=== PATIENT | male | born 1960 | race Caucasian/White ===

== ENCOUNTER 2019-07-30 02:15 | Inpatient (IN) | payer MEDICARE, MEDICAID ==
--- NOTE | 2019-07-30 02:55 | ED ---
Psych HPI - General Chief Complaint: Psychiatric Symptoms Stated Complaint: mental health Time Seen by Provider: 07/30/19 02:55 Source: patient Mode of arrival: ambulatory - History of Present Illness Initial Comments: Dario is a 59 -year-old gentleman with unknown psychiatric history who is brought to the ED today by his family and is petitioned. Per family the patient has been talking to a stuffed monkey, patient has been very agitated and noncompliant with his psychiatric medications. When I attempted to obtain history from the patient he is very disorganized in his thinking. Patient talks about how his entire family hates him. He states that they don't let him drive. He states that he hasn't been taking his medications, patient states that his family assumed that he needed to be on medication for his whole life and he knows he doesn't. - Related Data Home Medications Medication Instructions Recorded Confirmed Aspirin EC [Ecotrin Low Dose] 81 mg PO DAILY 07/30/19 07/30/19 Atorvastatin [Lipitor] 40 mg PO HS 07/30/19 07/30/19 Levothyroxine Sodium [Synthroid] 75 mcg PO DAILY 07/30/19 07/30/19 metFORMIN HCL 1,000 mg PO BID 07/30/19 07/30/19 Allergies Allergy/AdvReac Type Severity Reaction Status Date / Time No Known Allergies Allergy Verified 07/30/19 02:40 Review of Systems ROS Statement: Those systems with pertinent positive or pertinent negative responses have been documented in the HPI. ROS Other: All systems not noted in ROS Statement are negative. Past Medical History Past Medical History: Diabetes Mellitus History of Any Multi-Drug Resistant Organisms: None Reported Past Surgical History: Orthopedic Surgery Past Psychological History: No Psychological Hx Reported Smoking Status: Current every day smoker Past Alcohol Use History: None Reported Past Drug Use History: None Reported General Exam - General Exam Comments Initial Comments: Physical Exam GENERAL: Patient is well-developed and well-nourished. Patient is nontoxic and well- hydrated and is in no distress. HENT: Normocephalic, Atraumatic. EYES: PERRL, EOMI PULMONARY: Unlabored respirations. No audible rales rhonchi or wheezing was noted. CARDIOVASCULAR: There is a regular rate and rhythm without any murmurs gallops or rubs. ABDOMEN: Soft and nontender with normal bowel sounds. SKIN: Skin is clear with no lesions or rashes and otherwise unremarkable. : Deferred NEUROLOGIC: Patient is alert and oriented x3. Moving all extremities spontaneously MUSCULOSKELETAL: Normal extremities with adequate strength and full range of motion. No lower extremity swelling or edema. No calf tenderness. PSYCHIATRIC: Odd behaviors, disorganized thinking Limitations: no limitations Course Vital Signs 07/30/19 07/30/19 07/30/19 02:33 08:50 13:22 Temperature 98.6 F 98.0 F 98.0 F Pulse Rate 100 91 82 Respiratory 20 15 16 Rate Blood Pressure 109/72 145/94 138/60 O2 Sat by Pulse 97 95 95 Oximetry Medical Decision Making - Medical Decision Making The patient was seen and evaluated history was obtained from family as well as patient assigned patient is sitting comfortably in the bed holding a stuffed monkey he also has a pile of what appears to be old male, a calendar which she has made multiple and some old birthday cards Patient medically cleared for evaluation by psych, upon EPS evaluation patient was sleeping, refused to talk stating that he needed to sleep. Patient will be re-assessed by EPS later I feel the patient warrants inpatient care, Cert completed Patient care signed out to Dr. Davis at shift change, awaiting placement by EPS - Lab Data Result diagrams: 07/30/19 03:20 07/30/19 03:20 Lab Results 07/30/19 07/30/19 07/30/19 Range/Units 03:20 03:20 04:31 WBC 7.1 (3.8-10.6) k/uL RBC 4.81 (4.30-5.90) m/uL Hgb 14.4 (13.0-17.5) gm/dL Hct 43.6 (39.0-53.0) % MCV 90.8 (80.0-100.0) fL MCH 29.9 (25.0-35.0) pg MCHC 32.9 (31.0-37.0) g/dL RDW 15.4 (11.5-15.5) % Plt Count 250 (150-450) k/uL Neutrophils % 63 % Lymphocytes % 23 % Monocytes % 7 % Eosinophils % 5 % Basophils % 1 % Neutrophils # 4.5 (1.3-7.7) k/uL Lymphocytes # 1.6 (1.0-4.8) k/uL Monocytes # 0.5 (0-1.0) k/uL Eosinophils # 0.4 (0-0.7) k/uL Basophils # 0.1 (0-0.2) k/uL Sodium 137 (137-145) mmol/L Potassium 4.2 (3.5-5.1) mmol/L Chloride 99 (98-107) mmol/L Carbon Dioxide 31 H (22-30) mmol/L Anion Gap 7 mmol/L BUN 20 (9-20) mg/dL Creatinine 1.04 (0.66-1.25) mg/dL Est GFR (CKD-EPI)AfAm 90 (>60 ml/min/1.73 sqM) Est GFR (CKD-EPI)NonAf 78 (>60 ml/min/1.73 sqM) Glucose 153 H (74-99) mg/dL Calcium 9.2 (8.4-10.2) mg/dL Total Bilirubin 0.5 (0.2-1.3) mg/dL AST 45 (17-59) U/L ALT 39 (21-72) U/L Alkaline Phosphatase 34 L (38-126) U/L Total Protein 6.7 (6.3-8.2) g/dL Albumin 4.2 (3.5-5.0) g/dL Urine Color Urine Appearance (Clear) Urine pH (5.0-8.0) Ur Specific [place] (1.001-1.035) Urine Protein (Negative) Urine Glucose (UA) (Negative) Urine Ketones (Negative) Urine Blood (Negative) Urine Nitrite (Negative) Urine Bilirubin (Negative) Urine Urobilinogen (<2.0) mg/dL Ur Leukocyte Esterase (Negative) Urine RBC (0-5) /hpf Urine WBC (0-5) /hpf Urine Mucus (None) /hpf Urine Opiates Screen Not Detected (NotDetected) Ur Oxycodone Screen Not Detected (NotDetected) Urine Methadone Screen Not Detected (NotDetected) Ur Propoxyphene Screen Not Detected (NotDetected) Ur Barbiturates Screen Not Detected (NotDetected) U Tricyclic Antidepress Not Detected (NotDetected) Ur Phencyclidine Scrn Not Detected (NotDetected) Ur Amphetamines Screen Not Detected (NotDetected) U Methamphetamines Scrn Not Detected (NotDetected) U Benzodiazepines Scrn Not Detected (NotDetected) Urine Cocaine Screen Not Detected (NotDetected) U Marijuana (THC) Screen Not Detected (NotDetected) 07/30/19 Range/Units 04:31 WBC (3.8-10.6) k/uL RBC (4.30-5.90) m/uL Hgb (13.0-17.5) gm/dL Hct (39.0-53.0) % MCV (80.0-100.0) fL MCH (25.0-35.0) pg MCHC (31.0-37.0) g/dL RDW (11.5-15.5) % Plt Count (150-450) k/uL Neutrophils % % Lymphocytes % % Monocytes % % Eosinophils % % Basophils % % Neutrophils # (1.3-7.7) k/uL Lymphocytes # (1.0-4.8) k/uL Monocytes # (0-1.0) k/uL Eosinophils # (0-0.7) k/uL Basophils # (0-0.2) k/uL Sodium (137-145) mmol/L Potassium (3.5-5.1) mmol/L Chloride (98-107) mmol/L Carbon Dioxide (22-30) mmol/L Anion Gap mmol/L BUN (9-20) mg/dL Creatinine (0.66-1.25) mg/dL Est GFR (CKD-EPI)AfAm (>60 ml/min/1.73 sqM) Est GFR (CKD-EPI)NonAf (>60 ml/min/1.73 sqM) Glucose (74-99) mg/dL Calcium (8.4-10.2) mg/dL Total Bilirubin (0.2-1.3) mg/dL AST (17-59) U/L ALT (21-72) U/L Alkaline Phosphatase (38-126) U/L Total Protein (6.3-8.2) g/dL Albumin (3.5-5.0) g/dL Urine Color Yellow Urine Appearance Clear (Clear) Urine pH 5.5 (5.0-8.0) Ur Specific [place] 1.026 (1.001-1.035) Urine Protein Trace H (Negative) Urine Glucose (UA) Negative (Negative) Urine Ketones Negative (Negative) Urine Blood Negative (Negative) Urine Nitrite Negative (Negative) Urine Bilirubin Negative (Negative) Urine Urobilinogen <2.0 (<2.0) mg/dL Ur Leukocyte Esterase Small H (Negative) Urine RBC 1 (0-5) /hpf Urine WBC 6 H (0-5) /hpf Urine Mucus Rare H (None) /hpf Urine Opiates Screen (NotDetected) Ur Oxycodone Screen (NotDetected) Urine Methadone Screen (NotDetected) Ur Propoxyphene Screen (NotDetected) Ur Barbiturates Screen (NotDetected) U Tricyclic Antidepress (NotDetected) Ur Phencyclidine Scrn (NotDetected) Ur Amphetamines Screen (NotDetected) U Methamphetamines Scrn (NotDetected) U Benzodiazepines Scrn (NotDetected) Urine Cocaine Screen (NotDetected) U Marijuana (THC) Screen (NotDetected) Disposition Clinical Impression: Psychosis Disposition: TRANSFER TO PSYCH HOSP/UNIT Condition: Stable Is patient prescribed a controlled substance at d/c from ED?: No
[2019-07-30 03:35] LABS: Basophils # (A) 0.1 k/uL (0-0.2); Basophils % (A) 1 %; Eosinophils # (A) 0.4 k/uL (0-0.7); Eosinophils % (A) 5 %; HCT 43.6 % (39.0-53.0); HGB 14.4 gm/dL (13.0-17.5); Lymphocytes # (A) 1.6 k/uL (1.0-4.8); Lymphocytes % (A) 23 %; MCH 29.9 pg (25.0-35.0); MCHC 32.9 g/dL (31.0-37.0); MCV 90.8 fL (80.0-100.0); Monocytes # (A) 0.5 k/uL (0-1.0); Monocytes % (A) 7 %; Neutrophils # (A) 4.5 k/uL (1.3-7.7); Neutrophils % (A) 63 %; Platelet Count 250 k/uL (150-450); RBC 4.81 m/uL (4.30-5.90); RDW 15.4 % (11.5-15.5); WBC 7.1 k/uL (3.8-10.6)
[2019-07-30 03:48] LABS: Albumin 4.2 g/dL (3.5-5.0); Calcium 9.2 mg/dL (8.4-10.2); Potassium 4.2 mmol/L (3.5-5.1); Total Bilirubin 0.5 mg/dL (0.2-1.3); Total Protein 6.7 g/dL (6.3-8.2)
[2019-07-30 05:48] LABS: Amphetamine Screen,Urine Not Detected (NotDetected); Barbiturate Screen,Urine Not Detected (NotDetected); Benzodiazepines Screen,Urine Not Detected (NotDetected); Cocaine Screen,Urine Not Detected (NotDetected); Methadone Screen, Urine Not Detected (NotDetected); Opiate Screen,Urine Not Detected (NotDetected); Oxycodone Screen, Urine Not Detected (NotDetected); Phencyclidine Screen,Urine Not Detected (NotDetected); Tricyclic Antidepressant,Urine Not Detected (NotDetected); Urn Cannabinoid Scrn Not Detected (NotDetected)
[2019-07-30] MEDS ORDERED: MAG HYDROX/AL HYDROX/SIMETH 30 ML CUP PO PRN (13:17)
[2019-07-30 13:53] LABS: Appearance,Urine Clear (Clear); Bilirubin,Urine Negative (Negative); Blood,Urine Negative (Negative); Color,Urine Yellow; Glucose,Urine (UA) Negative (Negative); Ketones,Urine Negative (Negative); Leukocyte Esterase,Urine Small (Negative); Mucus,Urine Rare /hpf; Nitrite,Urine Negative (Negative); PH, Urine 5.5 (5.0-8.0); Protein,Urine Trace (Negative); RBC,Urine 1 /hpf (0-5); Specific Gravity,Urine 1.026 (1.001-1.035); Urobilinogen,Urine <2.0 mg/dL (<2.0); WBC,Urine 6 /hpf (0-5)
--- NOTE | 2019-07-30 15:49 | P.MDCNMH ---
History of Present Illness H&P Date: 07/30/19 Chief Complaint: Medical management 59-year-old male with history of diabetes mellitus with unknown psychiatric history presents the ED by being brought in by family. Per family, patient has been talking to a stuffed monkey, acting very agitated and is noncompliant with his medication. [facility] has been consulted for medical management of this patient. During the encounter, patient had a very disorganized style of thinking. He was unable to answer many questions effectively. Patient complaining about his family. He states that there is no way he will go back home to his family. He denies any headache, nausea or vomiting, fever or chills, cough, chest pain, shortness of breath, palpitations, changes in urination or bowel habits. No changes in appetite or weight. Patient denies any dizziness, numbness/weakness/tingling of the extremities. Of note, patient reports smoking a pack of cigarettes daily and drinking alcohol socially. He does report a history of CAD with 70% blockage, underwent cardiac stenting. Vital signs were unremarkable. CBC was unremarkable. CMP showed bicarbonate of 31, glucose of 153. UA showed small leukocyte esterase. UDS was negative. Review of Systems Pertinent positives and negatives as discussed in HPI, a complete review of systems was performed and all other systems are negative. All systems: negative Past Medical History Past Medical History: Diabetes Mellitus History of Any Multi-Drug Resistant Organisms: None Reported Past Surgical History: Orthopedic Surgery Smoking Status: Current every day smoker Medications and Allergies Home Medications Medication Instructions Recorded Confirmed Type Aspirin EC [Ecotrin Low Dose] 81 mg PO DAILY 07/30/19 07/30/19 History Atorvastatin [Lipitor] 40 mg PO HS 07/30/19 07/30/19 History Levothyroxine Sodium [Synthroid] 75 mcg PO DAILY 07/30/19 07/30/19 History metFORMIN HCL 1,000 mg PO BID 07/30/19 07/30/19 History Allergies Allergy/AdvReac Type Severity Reaction Status Date / Time No Known Allergies Allergy Verified 07/30/19 02:40 Physical Exam Vitals: Vital Signs Temp Pulse Resp BP Pulse Ox 07/30/19 13:22 98.0 F 82 16 138/60 95 07/30/19 08:50 98.0 F 91 15 145/94 95 07/30/19 02:33 98.6 F 100 20 109/72 97 Intake and Output 07/30/19 07/30/19 07/30/19 06:59 14:59 22:59 Other: Weight 146.646 kg General: [non toxic], [no distress], [appears at stated age] Derm: [warm], [dry] Head: [atraumatic], [normocephalic], [symmetric] Eyes: [EOMI], [no lid lag], [anicteric sclera] Mouth: [no lip lesion], [mucus membranes moist] Cardiovascular: [S1S2 reg], [no murmur], [positive DP pulse bilateral] Lungs: [CTA bilateral], [no rhonchi, no rales] , [no accessory muscle use] Abdominal: [soft], [ nontender to palpation], [no guarding], [no appreciable organomegaly] Ext: [no gross muscle atrophy], [no edema], [no contractures] Neuro: [ CN II-XI grossly intact], [no focal neuro deficits] Psych: [Patient discussing irrelevant details, unable to determine] Cranial Nerve Examination - Cranial Nerves Cranial Nerve II- Optic: Intact Cranial Nerve III- Oculomotor: Intact Cranial Nerve IV- Trochlear: Intact Cranial Nerve V- Trigeminal: Intact Cranial Nerve - Abducens: Intact Cranial Nerve VII- Facial: Intact Cranial Nerve VIII- Auditory: Intact Cranial Nerve IX- Glossopharyngeal: Intact Cranial Nerve X- Vagus: Intact Cranial Nerve XI- Accessory: Intact Cranial Nerve XII- Hypoglossal: Intact Results CBC & Chem 7: 07/30/19 03:20 07/30/19 03:20 Labs: Abnormal Lab Results - Last 24 Hours (Table) 07/30/19 07/30/19 Range/Units 03:20 04:31 Carbon Dioxide 31 H (22-30) mmol/L Glucose 153 H (74-99) mg/dL Alkaline Phosphatase 34 L (38-126) U/L Urine Protein Trace H (Negative) Ur Leukocyte Esterase Small H (Negative) Urine WBC 6 H (0-5) /hpf Urine Mucus Rare H (None) /hpf Assessment and Plan Assessment: Assessment and Plan CAD Smoker Diabetes mellitus Hypothyroidism Report stenting with 70% occlusion. Plans: Continue aspirin and Lipitor. Should probably be on beta jm, will defer to PCP. Smokes one pack of cigarettes daily. Plans: Nicotine patch if patient requests. [id number] glucose 153. Plans: Continue metformin. Regular Accu-Cheks. Hypoglycemic precautions. Plans: Continue Synthroid. Check TSH tomorrow. Thank you for this consult. Please call with any additional questions or concerns.
[2019-07-30 17:39] LABS: Glucose,Whole Blood 142 mg/dL (75-99)
[2019-07-30 20:17] LABS: Glucose,Whole Blood 145 mg/dL (75-99)
[2019-07-30] MEDS: ATORVASTATIN 40 MG TAB PO SCH (21:05)
[2019-07-30] MEDS: metFORMIN 500 MG TAB PO SCH (21:05)
[2019-07-30] MEDS: ZIPRASIDONE 20 MG VIAL IM PRN (22:38)
[2019-07-30] MEDS: LORazepam 1 MG TAB PO PRN (22:38)
[2019-07-31] MEDS: LEVOTHYROXINE 75 MCG TAB PO SCH (06:21)
[2019-07-31 07:33] LABS: Glucose,Whole Blood 141 mg/dL (75-99)
[2019-07-31] MEDS: metFORMIN 500 MG TAB PO SCH ×2 (08:49→20:59)
[2019-07-31] MEDS: ASPIRIN 81 MG PO SCH (08:49)
[2019-07-31 12:40] LABS: Glucose,Whole Blood 119 mg/dL (75-99)
[2019-07-31] MEDS: risperiDONE ODT 1 MG TAB PO SCH ×2 (12:52→20:59)
--- NOTE | 2019-07-31 13:04 | P.HP ---
Psychiatric H&P - . H&P Date: 07/31/19 History & Physical: Allergies Allergy/AdvReac Type Severity Reaction Status Date / Time No Known Allergies Allergy Verified 07/30/19 02:40 Vital Signs Temp 97.3 F L 07/31/19 06:55 Pulse 93 07/31/19 06:55 Resp 20 07/31/19 06:55 BP 121/74 07/31/19 06:55 Pulse Ox 95 07/30/19 13:22 Laboratory Last Values WBC 7.1 k/uL (3.8-10.6) 07/30/19 03:20 RBC 4.81 m/uL (4.30-5.90) 07/30/19 03:20 Hgb 14.4 gm/dL (13.0-17.5) 07/30/19 03:20 Hct 43.6 % (39.0-53.0) 07/30/19 03:20 MCV 90.8 fL (80.0-100.0) 07/30/19 03:20 MCH 29.9 pg (25.0-35.0) 07/30/19 03:20 MCHC 32.9 g/dL (31.0-37.0) 07/30/19 03:20 RDW 15.4 % (11.5-15.5) 07/30/19 03:20 Plt Count 250 k/uL (150-450) 07/30/19 03:20 Neutrophils % 63 % 07/30/19 03:20 Lymphocytes % 23 % 07/30/19 03:20 Monocytes % 7 % 07/30/19 03:20 Eosinophils % 5 % 07/30/19 03:20 Basophils % 1 % 07/30/19 03:20 Neutrophils # 4.5 k/uL (1.3-7.7) 07/30/19 03:20 Lymphocytes # 1.6 k/uL (1.0-4.8) 07/30/19 03:20 Monocytes # 0.5 k/uL (0-1.0) 07/30/19 03:20 Eosinophils # 0.4 k/uL (0-0.7) 07/30/19 03:20 Basophils # 0.1 k/uL (0-0.2) 07/30/19 03:20 Sodium 137 mmol/L (137-145) 07/30/19 03:20 Potassium 4.2 mmol/L (3.5-5.1) 07/30/19 03:20 Chloride 99 mmol/L (98-107) 07/30/19 03:20 Carbon Dioxide 31 mmol/L (22-30) H 07/30/19 03:20 Anion Gap 7 mmol/L 07/30/19 03:20 BUN 20 mg/dL (9-20) 07/30/19 03:20 Creatinine 1.04 mg/dL (0.66-1.25) 07/30/19 03:20 Est GFR (CKD-EPI)AfAm 90 (>60 ml/min/1.73 sqM) 07/30/19 03:20 Est GFR (CKD-EPI)NonAf 78 (>60 ml/min/1.73 sqM) 07/30/19 03:20 Glucose 153 mg/dL (74-99) H 07/30/19 03:20 POC Glucose (mg/dL) 119 mg/dL (75-99) H 07/31/19 12:39 POC Glu Metal Pattern Maker Shital Bang 07/31/19 12:39 Calcium 9.2 mg/dL (8.4-10.2) 07/30/19 03:20 Total Bilirubin 0.5 mg/dL (0.2-1.3) 07/30/19 03:20 AST 45 U/L (17-59) 07/30/19 03:20 ALT 39 U/L (21-72) 07/30/19 03:20 Alkaline Phosphatase 34 U/L (38-126) L 07/30/19 03:20 Total Protein 6.7 g/dL (6.3-8.2) 07/30/19 03:20 Albumin 4.2 g/dL (3.5-5.0) 07/30/19 03:20 TSH 37.800 mIU/L (0.465-4.680) H 07/30/19 03:20 Urine Color Yellow 07/30/19 04:31 Urine Appearance Clear (Clear) 07/30/19 04:31 Urine pH 5.5 (5.0-8.0) 07/30/19 04:31 Ur Specific [place] 1.026 (1.001-1.035) 07/30/19 04:31 Urine Protein Trace (Negative) H 07/30/19 04:31 Urine Glucose (UA) Negative (Negative) 07/30/19 04:31 Urine Ketones Negative (Negative) 07/30/19 04:31 Urine Blood Negative (Negative) 07/30/19 04:31 Urine Nitrite Negative (Negative) 07/30/19 04:31 Urine Bilirubin Negative (Negative) 07/30/19 04:31 Urine Urobilinogen <2.0 mg/dL (<2.0) 07/30/19 04:31 Ur Leukocyte Esterase Small (Negative) H 07/30/19 04:31 Urine RBC 1 /hpf (0-5) 07/30/19 04:31 Urine WBC 6 /hpf (0-5) H 07/30/19 04:31 Urine Mucus Rare /hpf (None) H 07/30/19 04:31 Urine Opiates Screen Not Detected (NotDetected) 07/30/19 04:31 Ur Oxycodone Screen Not Detected (NotDetected) 07/30/19 04:31 Urine Methadone Screen Not Detected (NotDetected) 07/30/19 04:31 Ur Propoxyphene Screen Not Detected (NotDetected) 07/30/19 04:31 Ur Barbiturates Screen Not Detected (NotDetected) 07/30/19 04:31 U Tricyclic Antidepress Not Detected (NotDetected) 07/30/19 04:31 Ur Phencyclidine Scrn Not Detected (NotDetected) 07/30/19 04:31 Ur Amphetamines Screen Not Detected (NotDetected) 07/30/19 04:31 U Methamphetamines Scrn Not Detected (NotDetected) 07/30/19 04:31 U Benzodiazepines Scrn Not Detected (NotDetected) 07/30/19 04:31 Urine Cocaine Screen Not Detected (NotDetected) 07/30/19 04:31 U Marijuana (THC) Screen Not Detected (NotDetected) 07/30/19 04:31 07/31/19 12:51 IDENTIFYING DATA: Patient is a 59-year-old male who is , has 4 kids and is currently unemployed living with his brother. HPI: Patient presented to the hospital my concerns of his brother with patient's ongoing delusions and bizarre behavior/aggression. According to report from child protective services social worker who spoke with patient's brother, patient has been having multiple hospitalizations for bizarre behavior which has been occurring since the 80s. Most recently patient was in [place] living and was getting lost and needed to be tracked down by him who paid to have his brother moved up to [place] to be better looked after. As per report, brother states that patient has been religiously preoccupied, paranoid and rambles. Patient was admitted to the unit and was noted to be somewhat directable however was irritable and aggressive with staff and was acting bizarre. Patient was agreeable to be seen for interview in the office and brought with him papers and colorings from what he was doing in group. Patient appeared to have poor hygiene and poor grooming, appeared to be irritable and hostile, was demanding that continuity writer crab picker the phone and talk with his brother while he was in the room to explain to him that she should be left alone. Patient has poor insight into his condition and only spoke about how he is being mistreated by his brother and his siblings who were trying to take away his independence. Patient is tangential, illogical and loud and very demanding with continuity writer, swearing at times. He speaks about being controlled in his everyday life and states "I'm being attacked by other patien ts" when describing other people on the unit. When asked about his situation in [place] patient gives limited details and states that his sister was lying about him and lies about everything. Patient is oriented to person and place only and when asked certain questions about his thoughts about self-harm or harm to others and if he hears voices patient immediately gets agitated and states "I don't want to talk about that BS right now". Patient admits to smoking one pack a day of cigarettes denies alcohol use or marijuana use or any other substance use. PAST PSYCHIATRIC HISTORY: Patient is at multiple hospitalizations in the past however story is unclear. Patient has an unknown diagnosis at this time and patient denied any previous suicide attempts. When asked patient about his medication history, patient immediately got hostile and defensive and stated "I'm not talking about medications period". PMH: CAD, diabetes mellitus, thyroid disorder, hyperlipidemia ALLERGIES: [NKDA] CHEMICAL DEPENDENCY HISTORY:. HPI FAMILY PSYCHIATRIC/SUBSTANCE USE HISTORY: Denies SOCIAL HISTORY: Patient is currently living with his brother and was recently moved up to [place] from [place] for unclear reasons. Patient is currently unemployed and has 4 kids and is . MENTAL STATUS EXAM: General Appearance: Patient appears to be older than stated age, is obese alert however uncooperative and hostile. Behavior: Patient is seated in chair, easily agitated. Speech: Patient's speech is disorganized and nonpressured. Mood/Affect: Patient reports their mood is "not good", affect is congruent and constricted. Suicidality/Homicidality: Patient denies having any suicidal or homicidal ideation intent or plan. Perceptions: Patient denies any auditory or visual hallucinations. Though content/process: There is no evidence of any delusional thought content and thought process is linear and goal-directed. Memory and concentration: AOX2, to person and place only. Patient is unable to cooperate with cognitive exam Judgment and insight: Poor STRENGTHS/WEAKNESSES: Patient has good social support however patient has poor insight and poor coping skills. INTELLECT: Below average IMPRESSIONS: Psychosis unspecified Nicotine dependence PLAN: -Patient is admitted under [voluntary] status to [facility] for stabilization of psychiatric symptoms and safety. Patient signed adult voluntary form however refused to sign for medications. -Medications : Will start patient on risperidone 1 mg twice a day for psychosis/aggression. Patient will be offered this medication and if he refuses then we will petition for court. -Geodon and Ativan PRN for agitation/aggression -Patient was informed of the risks, benefits and side effects of the medication. -NRT -nicotine patch - on board for discharge planning. 07/31/19 13:00
[2019-07-31 17:44] LABS: Glucose,Whole Blood 100 mg/dL (75-99)
[2019-07-31 20:12] LABS: Glucose,Whole Blood 150 mg/dL (75-99)
[2019-07-31] MEDS: ATORVASTATIN 40 MG TAB PO SCH (21:00)
[2019-07-31] MEDS: LORazepam 1 MG TAB PO PRN (21:00)
[2019-07-31 21:45] LABS: Hemoglobin A1C 7.1 % (4.0-6.0)
[2019-08-01] MEDS: LEVOTHYROXINE 75 MCG TAB PO SCH (05:58)
[2019-08-01 07:39] LABS: Glucose,Whole Blood 140 mg/dL (75-99)
[2019-08-01] MEDS: metFORMIN 500 MG TAB PO SCH ×2 (08:29→20:51)
[2019-08-01] MEDS: ASPIRIN 81 MG PO SCH (08:29)
[2019-08-01] MEDS: risperiDONE ODT 1 MG TAB PO SCH ×2 (08:29→20:50)
--- NOTE | 2019-08-01 15:40 | P.PN ---
Progress Note - Text Progress Note Date: 08/01/19 IDENTIFICATION DATA: 59-year-old male admitted to [facility] due to worsening delusions and bizarre behavior/aggression. INTERVAL HISTORY: Patient was seen today. He reports feeling nervous around people who put him down, especially his family members. He denies feeling nervous in the hospital and states people in the hospital dont bother him much. He stated he likes going to his groups. He bragged about he is being mistreated by his family members and stated he does not want to go back to his brothers house if they continue to treat him bad. He staed he wants to have his own place. He reports his brother bossing over him. He says he gets social security disability but is concerned that he may not be able to get his own place due to his history of being a sexual offender. MENTAL STATUS EXAMINATION: 59 year old morbidly obese male in marginal grooming and hygiene. Maintains good eye contact. His speech and thought process are pressured, tangential. Mood is reported as ok and affect constricted. Denies current auditory or visual hallucinations and paranoid ideations. He is alert and oriented x 4. Jewel current suicidal or homicidal ideations. insight and judgment are limited. ASSESSMENT Psychosis unspecified PLAN: Continue current treatment.
[2019-08-01 20:09] LABS: Glucose,Whole Blood 126 mg/dL (75-99)
[2019-08-01] MEDS: ATORVASTATIN 40 MG TAB PO SCH (20:50)
[2019-08-01] MEDS: LORazepam 1 MG TAB PO PRN (22:21)
[2019-08-02] MEDS: LEVOTHYROXINE 75 MCG TAB PO SCH (06:09)
[2019-08-02 08:11] LABS: Glucose,Whole Blood 122 mg/dL (75-99)
[2019-08-02] MEDS: ASPIRIN 81 MG PO SCH (08:33)
[2019-08-02] MEDS: metFORMIN 500 MG TAB PO SCH ×2 (08:33→20:12)
[2019-08-02] MEDS: risperiDONE ODT 1 MG TAB PO SCH ×2 (08:33→20:12)
[2019-08-02] MEDS: ERYTHROMYCIN 5 MG/GM OPHTH OINT 3.5 GM TUBE LEFT EYE SCH ×3 (10:34→23:17)
--- NOTE | 2019-08-02 17:30 | P.PN ---
Progress Note - Text Progress Note Date: 08/02/19 IDENTIFICATION DATA: 59-year-old male admitted to [facility] unit due to worsening delusions and bizarre behavior/aggression. INTERVAL HISTORY: Patient was seen today. He says he wants his own place and wants to talk to socail worker about his placement options. He also reports feeling confused about his sexual orientation stating he doesnt know if he is born male or a female. He thinks he can find himself a and asked if thats going to raise any dander with his family members as he has to live under their roof. He was advised to have a family meeting arranged with his family memebrs to resolve their family conflicts. He reports good sleep and appetite. He says he is being kicked out of groups due falling asleep in groups. MENTAL STATUS EXAMINATION: 59 year old morbidly obese male in marginal grooming and hygiene. Maintains good eye contact. His speech and thought process are pressured, tangential. Mood is reported as better and affect constricted. Denies current auditory or visual hallucinations and paranoid ideations. He is alert and oriented x 4. Jewel current suicidal or homicidal ideations. insight and judgment are limited. ASSESSMENT Psychosis unspecified PLAN: Continue risperidone
[2019-08-02 20:08] LABS: Glucose,Whole Blood 149 mg/dL (75-99)
[2019-08-02] MEDS: ATORVASTATIN 40 MG TAB PO SCH (20:12)
[2019-08-03] MEDS: ERYTHROMYCIN 5 MG/GM OPHTH OINT 3.5 GM TUBE LEFT EYE SCH ×3 (00:17→21:17)
[2019-08-03] MEDS: MAGNESIUM HYDROXIDE 2,400 MG/10 ML CUP PO PRN (04:00)
[2019-08-03 07:47] LABS: Glucose,Whole Blood 128 mg/dL (75-99)
[2019-08-03] MEDS: metFORMIN 500 MG TAB PO SCH ×2 (09:16→21:17)
[2019-08-03] MEDS: ASPIRIN 81 MG PO SCH (09:16)
--- NOTE | 2019-08-03 09:16 | P.PN ---
Progress Note - Text Progress Note Date: 08/03/19 Interval History: Patient was seen wandering the hallways and was agreeable to speak to health underwriter t his morning in the office. Patient was less irritable today and less aggressive and was more directable. Patient has some improvement in his thought process however continues to be somewhat grandiose and spoke about starting multiple businesses and wanting to include his daughters however did not give any details. He states that he did not get along well with the previous doctor over the weekend and now states that "at least to listen to me". Patient seems to be somewhat tangential however is more cooperative. He states that his mood is good and denies any depressive symptoms. He states that he is sleeping poorly at night waking up when to 3 times a night. He states that he is going to some groups. At this time patient denies any suicidal or homical ideations, intent or plan. Patient denies any auditory, visual hallucinations. Patient denies any side effects from the medications and has been compliant with meds. Mental Status Exam: General Appearance: Patient appears to be older than stated age, is obese alert however somewhat cooperative Behavior: Patient is seated in chair, no agitation however continues to be bizarre. Speech: Patient's speech is disorganized and nonpressured. Mood/Affect: Patient reports their mood is "good", affect is congruent and constricted. Suicidality/Homicidality: Patient denies having any suicidal or homicidal ideation intent or plan. Perceptions: Patient denies any auditory or visual hallucinations. Though content/process: There is no evidence of any delusional thought content and thought process is tangential and illogical at times Memory and concentration: AOX2, to person and place only. Judgment and insight: Poor, improving mildly Assessment Psychosis unspecified Nicotine dependence Plan: -Patient continues to meet criteria for inpatient psychiatric admission for symptom stabilization and safety. Patient did sign the adult voluntary form however refused to sign for the medications. -Medications: We will increase risperidone to 1 mg every morning +2 mg daily at bedtime for psychosis. At this time patient is taking his medications. -Geodon and Ativan PRN for agitation/aggression -NRT -nicotine patch -SW on board for discharge planning.
[2019-08-03] MEDS: risperiDONE ODT 1 MG TAB PO SCH (09:20)
[2019-08-03] MEDS: LEVOTHYROXINE 75 MCG TAB PO SCH (09:42)
[2019-08-03 20:08] LABS: Glucose,Whole Blood 127 mg/dL (75-99)
[2019-08-03] MEDS: risperiDONE ODT 2 MG TAB PO SCH (21:17)
[2019-08-03] MEDS: ATORVASTATIN 40 MG TAB PO SCH (21:17)
[2019-08-04] MEDS ORDERED: ALBUTEROL INHALER 60 PUFF/8 GM INHALER INHALATION PRN (00:30)
[2019-08-04] MEDS: LEVOTHYROXINE 75 MCG TAB PO SCH (06:01)
[2019-08-04 08:00] LABS: Glucose,Whole Blood 122 mg/dL (75-99)
[2019-08-04] MEDS: risperiDONE ODT 1 MG TAB PO SCH (08:01)
[2019-08-04] MEDS: ERYTHROMYCIN 5 MG/GM OPHTH OINT 3.5 GM TUBE LEFT EYE SCH ×4 (08:01→23:48)
[2019-08-04] MEDS: metFORMIN 500 MG TAB PO SCH ×2 (08:01→21:30)
[2019-08-04] MEDS: ASPIRIN 81 MG PO SCH (08:01)
--- NOTE | 2019-08-04 12:03 | P.PN ---
Progress Note - Text Progress Note Date: 08/04/19 Interval History: Patient was seen attending activities group this morning and was agreeable to speak to screen writer in the office. Patient was appeared to be less irritable today and less aggressive and was more directable. Patient continues to speak about not trusting his brother and his sister and states that he is not ready to speak to them or have them visit the unit. Patient states that "it could have been under my terms" and hits his hands together. Patient continues to have limited insight however speaks about goal setting and steps to make it to where he is able to live on his own and own house. Patient seems to be somewhat less tangential however is more cooperative. He states that his mood is "better" and denies any depressive symptoms. He states that he slept much better last night, sleeping throughout the night. He states that he is going to some groups. At this time patient denies any suicidal or homical ideations, intent or plan. Patient denies any auditory, visual hallucinations. Patient denies any side effects from the medications and has been compliant with meds. Mental Status Exam: General Appearance: Patient appears to be older than stated age, is obese alert however somewhat cooperative Behavior: Patient is seated in chair, no agitation however continues to be bizarre. Speech: Patient's speech is disorganized and nonpressured. Mood/Affect: Patient reports their mood is "better", affect is congruent and constricted. Suicidality/Homicidality: Patient denies having any suicidal or homicidal ideation intent or plan. Perceptions: Patient denies any auditory or visual hallucinations. Though content/process: There is no evidence of any delusional thought content and thought process is tangential and illogical at times Memory and concentration: AOX2, to person and place only. Judgment and insight: Poor, improving mildly Assessment Psychosis unspecified Nicotine dependence Plan: -Patient continues to meet criteria for inpatient psychiatric admission for symptom stabilization and safety. Patient did sign the adult voluntary form however refused to sign for the medications. -Medications: We will continue with risperidone 1 mg every morning +2 mg daily at bedtime for psychosis. At this time patient is taking his medications. We'l l plan to increase as tolerated. -Geodon and Ativan PRN for agitation/aggression -NRT - nicotine patch -SW on board for discharge planning. We'll likely need brother or other family member to come in and see patient sometime this week.
[2019-08-04 20:08] LABS: Glucose,Whole Blood 136 mg/dL (75-99)
[2019-08-04] MEDS: risperiDONE ODT 2 MG TAB PO SCH (21:30)
[2019-08-04] MEDS: ATORVASTATIN 40 MG TAB PO SCH (21:30)
[2019-08-05] MEDS: MAGNESIUM HYDROXIDE 2,400 MG/10 ML CUP PO PRN (02:28)
[2019-08-05] MEDS: LEVOTHYROXINE 75 MCG TAB PO SCH (06:09)
[2019-08-05 07:39] LABS: Glucose,Whole Blood 114 mg/dL (75-99)
[2019-08-05] MEDS: ERYTHROMYCIN 5 MG/GM OPHTH OINT 3.5 GM TUBE LEFT EYE SCH ×2 (09:16→17:09)
[2019-08-05] MEDS: risperiDONE ODT 1 MG TAB PO SCH (09:18)
[2019-08-05] MEDS: metFORMIN 500 MG TAB PO SCH ×2 (09:18→21:20)
[2019-08-05] MEDS: ASPIRIN 81 MG PO SCH (09:18)
[2019-08-05] MEDS: TORSEMIDE 20 MG TAB PO SCH (09:19)
--- NOTE | 2019-08-05 11:41 | P.PN ---
Progress Note - Text Progress Note Date: 08/05/19 Interval History: Patient was seen after group had been completed and was agreeable to speak to policy writer typist in the common room. Patient continues to be somewhat irritable today and however was more directable. Patient continued to talk about his brother and sister not caring about him and not showing him love. He states that yesterday he attempted to call them on the phone twice and they did not apple picking supervisor. He claims "if they love me than the wall come to the store and talk with me here instead of trying to control me" as patient was tearful. Patient continues to be open to having a discussion with his family. Patient continues to have limited insight and judgment. Patient seems to be somewhat less tangential today. He states that his mood is "the same" and denies any depressive symptoms. He states that he slept much better last night, sleeping throughout the night. He states that he is going to some groups. At this time patient denies any suicidal or homical ideations, intent or plan. Patient denies any auditory, visual hallucinations. Patient denies any side effects from the medications and has been compliant with meds. Mental Status Exam: General Appearance: Patient appears to be older than stated age, is obese alert however somewhat cooperative Behavior: Patient is seated in chair, no agitation however continues to be bizarre. Speech: Patient's speech is disorganized and nonpressured. Mood/Affect: Patient reports their mood is "the same", affect is congruent and l abile Suicidality/Homicidality: Patient denies having any suicidal or homicidal ideation intent or plan. Perceptions: Patient denies any auditory or visual hallucinations. Though content/process: There is no evidence of any delusional thought content and thought process is tangential and illogical at times Memory and concentration: AOX2, to person and place only. Judgment and insight: Poor, improving mildly Assessment Psychosis unspecified Nicotine dependence Plan: -Patient continues to meet criteria for inpatient psychiatric admission for symptom stabilization and safety. Patient did sign the adult voluntary form however refused to sign for the medications. -Medications: We will continue increasing risperidone 1 mg every morning + 2.5 mg daily at bedtime for psychosis. At this time patient is taking his medications. We'll plan to increase as tolerated. -Geodon and Ativan PRN for agitation/aggression -NRT - nicotine patch -SW on board for discharge planning. We'll likely need brother or other family member to come in and see patient sometime this week.
[2019-08-05 20:06] LABS: Glucose,Whole Blood 152 mg/dL (75-99)
[2019-08-05] MEDS ORDERED: risperiDONE 1 MG TAB PO SCH (21:00)
[2019-08-05] MEDS: ATORVASTATIN 40 MG TAB PO SCH (21:20)
[2019-08-06] MEDS: LEVOTHYROXINE 75 MCG TAB PO SCH (06:06)
[2019-08-06 07:41] LABS: Glucose,Whole Blood 114 mg/dL (75-99)
[2019-08-06] MEDS: ASPIRIN 81 MG PO SCH (08:25)
[2019-08-06] MEDS: ERYTHROMYCIN 5 MG/GM OPHTH OINT 3.5 GM TUBE LEFT EYE SCH ×3 (08:25→16:09)
[2019-08-06] MEDS: TORSEMIDE 20 MG TAB PO SCH (08:26)
[2019-08-06] MEDS: risperiDONE ODT 1 MG TAB PO SCH (08:26)
[2019-08-06] MEDS: metFORMIN 500 MG TAB PO SCH ×2 (08:26→21:03)
--- NOTE | 2019-08-06 10:40 | P.PN ---
Progress Note - Text Progress Note Date: 08/06/19 Interval History: Patient was seen this morning wandering the hallways and was agreeable to speak to ad writer in the office. Patient continues to be somewhat irritable today and illogical often going on tangents and conversation. Patient continues to feel that his family is not helping him and that he wants to leave them and start his own life. He states that he has not tried to call him yesterday and states that "it's not my responsibility" and also that "they don't love me". Patient cont inues to be open to having a discussion with his family. Patient continues to have limited insight and judgment. He states that his mood is "good" and denies any depressive symptoms. He states that he slept much better last night, sleeping throughout the night. He states that he is going to some groups. At this time patient denies any suicidal or homical ideations, intent or plan. Patient denies any auditory, visual hallucinations. Patient denies any side effects from the medications and has been compliant with meds. Mental Status Exam: General Appearance: Patient appears to be older than stated age, is obese alert however somewhat cooperative Behavior: Patient is seated in chair, no agitation however continues to be bizarre. Speech: Patient's speech is disorganized and nonpressured. Often tangential and loud Mood/Affect: Patient reports their mood is "good", affect is congruent and labile Suicidality/Homicidality: Patient denies having any suicidal or homicidal ideation intent or plan. Perceptions: Patient denies any auditory or visual hallucinations. Though content/process: There is no evidence of any delusional thought content and thought process is tangential and illogical at times Memory and concentration: AOX2, to person and place only. Judgment and insight: Poor, improving mildly Assessment Psychosis unspecified Nicotine dependence Plan: -Patient continues to meet criteria for inpatient psychiatric admission for symptom stabilization and safety. Patient did sign the adult voluntary form however refused to sign for the medications. -Medications: We will continue increasing risperidone 1 mg every morning + 3 mg daily at bedtime for psychosis. At this time patient is taking his medications. We'll plan to increase as tolerated. Will consider adding Depakote for mood stabilization/lability. -Geodon and Ativan PRN for agitation/aggression -NRT - nicotine patch -SW on board for discharge planning. We'll likely need brother or other family member to visit patient.
[2019-08-06 19:39] LABS: Glucose,Whole Blood 129 mg/dL (75-99)
[2019-08-06] MEDS: MAGNESIUM HYDROXIDE 2,400 MG/10 ML CUP PO PRN (21:02)
[2019-08-06] MEDS: risperiDONE 1 MG TAB PO SCH (21:02)
[2019-08-06] MEDS: ATORVASTATIN 40 MG TAB PO SCH (21:03)
[2019-08-07] MEDS: ERYTHROMYCIN 5 MG/GM OPHTH OINT 3.5 GM TUBE LEFT EYE SCH ×4 (01:02→23:10)
[2019-08-07] MEDS: LEVOTHYROXINE 75 MCG TAB PO SCH (06:08)
[2019-08-07 07:44] LABS: Glucose,Whole Blood 125 mg/dL (75-99)
[2019-08-07] MEDS: metFORMIN 500 MG TAB PO SCH ×2 (08:11→20:53)
[2019-08-07] MEDS: TORSEMIDE 20 MG TAB PO SCH (08:11)
[2019-08-07] MEDS: ASPIRIN 81 MG PO SCH (08:11)
[2019-08-07] MEDS: risperiDONE ODT 1 MG TAB PO SCH (08:12)
[2019-08-07 12:31] LABS: Glucose,Whole Blood 94 mg/dL (75-99)
--- NOTE | 2019-08-07 12:52 | P.PN ---
Progress Note - Text Progress Note Date: 08/07/19 Interval History: Patient was seen this morning wandering the hallways and was agreeable to speak to commercial underwriter in the office. Patient is showing some signs of increase in his appropriateness and his last tangential but more directable during conversation. Patient is more appropriate as well and has a slightly brighter affect this morning. Patient has improved insight and is agreeable to treatment and commercial underwriter brought up the fact that patient may need an additional mood stabilizer and patient was agreeable to this stating that Depakote helps him feel "calmer". Patient continues to feel that his family is not helping him and that he wants to leave them and start his own life. He states that his mood is "good" and denies any depressive symptoms. He states that he slept much better last night, sleeping throughout the night. He states that he is going to some groups. At this time patient denies any suicidal or homical ideations, intent or plan. Patient denies any auditory, visual hallucinations. Patient denies any side effects from the medications and has been compliant with meds. Mental Status Exam: General Appearance: Patient appears to be older than stated age, is obese alert however somewhat cooperative Behavior: Patient is seated in chair, no agitation Speech: Patient's speech is more logical and nonpressured. Often tangential Mood/Affect: Patient reports their mood is "good", affect is congruent and labile at times. Suicidality/Homicidality: Patient denies having any suicidal or homicidal ideation intent or plan. Perceptions: Patient denies any auditory or visual hallucinations. Though content/process: There is no evidence of any delusional thought content and thought process is tangential and illogical at times however is improving. Memory and concentration: AOX2, to person and place only. Judgment and insight: Poor, improving mildly Assessment Psychosis unspecified Nicotine dependence Plan: -Patient continues to meet criteria for inpatient psychiatric admission for symptom stabilization and safety. Patient did sign the adult voluntary form how ever refused to sign for the medications. -Medications: We will continue with risperidone 1 mg every morning + 3 mg daily at bedtime for psychosis. We'll plan to increase as tolerated. Will add Depak ote 250 mg twice a day for mood stabilization/lability with plan to increase as tolerated. -Geodon and Ativan PRN for agitation/aggression -NRT - nicotine patch -SW on board for discharge planning. We'll likely need brother or other family member to visit patient.
[2019-08-07 20:10] LABS: Glucose,Whole Blood 148 mg/dL (75-99)
[2019-08-07] MEDS: DIVALPROEX ER 250 MG TAB.ER.24H PO SCH (20:52)
[2019-08-07] MEDS: ATORVASTATIN 40 MG TAB PO SCH (20:53)
[2019-08-07] MEDS: risperiDONE 1 MG TAB PO SCH (20:53)
[2019-08-07] MEDS: SENNOSIDES 8.6 MG TAB PO PRN (21:45)
[2019-08-08] MEDS: LEVOTHYROXINE 75 MCG TAB PO SCH (05:58)
[2019-08-08 07:41] LABS: Glucose,Whole Blood 127 mg/dL (75-99)
[2019-08-08] MEDS: DIVALPROEX ER 250 MG TAB.ER.24H PO SCH ×2 (09:01→20:39)
[2019-08-08] MEDS: ERYTHROMYCIN 5 MG/GM OPHTH OINT 3.5 GM TUBE LEFT EYE SCH ×2 (09:01→16:54)
[2019-08-08] MEDS: metFORMIN 500 MG TAB PO SCH ×2 (09:02→20:39)
[2019-08-08] MEDS: ASPIRIN 81 MG PO SCH (09:02)
[2019-08-08] MEDS: risperiDONE ODT 1 MG TAB PO SCH (09:02)
[2019-08-08] MEDS: TORSEMIDE 20 MG TAB PO SCH (09:41)
[2019-08-08] MEDS: ACETAMINOPHEN TAB 325 MG TAB PO PRN (09:42)
--- NOTE | 2019-08-08 15:46 | P.PN ---
Progress Note - Text Progress Note Date: 08/08/19 Interval history: Patient seen in cross coverage today. He makes reference to being homeless. He makes reference to his brother having threatened him, makes reference to it sounds like a peer on the unit here threatening him and makes reference to having some lack of supports. He makes of reference to in the new year looking at potentially moving to where he is just lost. Mental status exam: He is alert and cooperative with the interview. He does not show any significant agitation. His thought processes show some disorganization at times. His mood he described as up and down. He has not verbalize any thoughts of harm to self. When asked about thoughts of harm to others he report s that he threatened someone here. He then relays that he is not going to hurt himself or anyone else. At that the end of the session he makes a gesture with his hands like they are guns and when asked about this makes reference to it being a "Western." He makes reference to several TV shows. Plan: We'll maintain current psychotropic medication regimen. We'll continue to monitor his ongoing response to treatment monitor for any medication side effects.
[2019-08-08] MEDS: ATORVASTATIN 40 MG TAB PO SCH (20:39)
[2019-08-08] MEDS: risperiDONE 1 MG TAB PO SCH (20:39)
[2019-08-09] MEDS: LEVOTHYROXINE 75 MCG TAB PO SCH (06:40)
[2019-08-09 08:01] LABS: Glucose,Whole Blood 119 mg/dL (75-99)
[2019-08-09] MEDS: ERYTHROMYCIN 5 MG/GM OPHTH OINT 3.5 GM TUBE LEFT EYE SCH ×3 (09:10→16:09)
[2019-08-09] MEDS: risperiDONE ODT 1 MG TAB PO SCH (09:12)
[2019-08-09] MEDS: metFORMIN 500 MG TAB PO SCH ×2 (09:12→21:35)
[2019-08-09] MEDS: DIVALPROEX ER 250 MG TAB.ER.24H PO SCH ×2 (09:12→21:36)
[2019-08-09] MEDS: ASPIRIN 81 MG PO SCH (09:12)
[2019-08-09] MEDS: TORSEMIDE 20 MG TAB PO SCH (09:13)
--- NOTE | 2019-08-09 16:10 | P.PN ---
Progress Note - Text Progress Note Date: 08/09/19 Interval history: Patient is seen again in cross coverage today. He relates that he sleeping and eating well. He is attending groups. He does not verbalize any adverse psychotropic medication side effects. He talks about wanting to continue with treatment as an outpatient and wanting to do some job training. Mental status exam: He is alert and cooperative with the interview. His speech is fluent, not rapid or pressured. His mood he describes as some normal ups and downs. He describes feeling some upset because a peer keeps getting in his face. He denies any thoughts of harm to others. He does not verbalize any thoughts of harm to self we again discussed that he can go to staff if he needs to talk to somebody. Plan: Patient will be maintained on current psychotropic medication regimen. Continue to monitor for any medication side effects and monitor his ongoing response to treatment.
[2019-08-09 20:14] LABS: Glucose,Whole Blood 160 mg/dL (75-99)
[2019-08-09] MEDS: ATORVASTATIN 40 MG TAB PO SCH (21:35)
[2019-08-09] MEDS: risperiDONE 1 MG TAB PO SCH (21:36)
[2019-08-10] MEDS: LEVOTHYROXINE 75 MCG TAB PO SCH (05:39)
[2019-08-10 07:35] LABS: Glucose,Whole Blood 122 mg/dL (75-99)
[2019-08-10] MEDS: ERYTHROMYCIN 5 MG/GM OPHTH OINT 3.5 GM TUBE LEFT EYE SCH ×2 (08:38→16:33)
[2019-08-10] MEDS: risperiDONE ODT 1 MG TAB PO SCH (08:40)
[2019-08-10] MEDS: ASPIRIN 81 MG PO SCH (08:40)
[2019-08-10] MEDS: DIVALPROEX ER 250 MG TAB.ER.24H PO SCH (08:40)
[2019-08-10] MEDS: TORSEMIDE 20 MG TAB PO SCH (08:40)
[2019-08-10] MEDS: metFORMIN 500 MG TAB PO SCH ×2 (08:40→21:27)
--- NOTE | 2019-08-10 10:38 | P.PN ---
Progress Note - Text Progress Note Date: 08/10/19 Interval History: Patient was seen this morning speaking to other patients in the day room and was agreeable to speak to bid writer in the office. Patient is continuing to improve with regards to his appropriateness and is less tangential during conversation. Patient has a slightly improved affect and when asked how his weekend went he states that "the medications are helping me feel less paranoid and I can think straight" Patient has improved insight and is agreeable to treatment. Patient is less preoccupied with paranoia and problems with his siblings and appears to have demonstrate future orientation. He states that his mood is "fine" and denies any depressive symptoms. He states that he slept much better last night, sleeping throughout the night. He states that he is going to some groups. At this time patient denies any suicidal or homical ideations, intent or plan. Patient denies any auditory, visual hallucinations. Patient denies any side effects from the medications and has been compliant with meds. Patient today is complaining of increased swelling in his legs. Mental Status Exam: General Appearance: Patient appears to be older than stated age, is obese alert however somewhat cooperative Behavior: Patient is seated in chair, no agitation Speech: Patient's speech is more logical and nonpressured. Often tangential Mood/Affect: Patient reports their mood is "fine", affect is congruent and less labile. Suicidality/Homicidality: Patient denies having any suicidal or homicidal ideation intent or plan. Perceptions: Patient denies any auditory or visual hallucinations. Though content/process: There is no evidence of any delusional thought content and thought process is tangential and illogical at times however is improving. Memory and concentration: AOX2, to person and place only. Judgment and insight: Poor, improving mildly Assessment Psychosis unspecified Nicotine dependence Plan: -Patient continues to meet criteria for inpatient psychiatric admission for symptom stabilization and safety. Patient did sign the adult voluntary form however refused to sign for the medications. -Medications: We will continue with risperidone 1 mg every morning + 3 mg daily at bedtime for psychosis. We'll plan to increase as tolerated. Will increase Depakote to 250 mg + 500mg for mood stabilization/lability with plan to increase as tolerated. -Geodon and Ativan PRN for agitation/aggression -NRT - nicotine patch -SW on board for discharge planning. We'll likely need brother or other family member to visit patient to evaluate for baseline.
--- NOTE | 2019-08-10 15:55 | P.PN ---
Subjective Progress Note Date: 08/10/19 Principal diagnosis: Lower extremity edema Patient is a 59-year-old male past medical history of diabetes mellitus, tobacco abuse, and intermittent lower extremity swelling was admitted to the mental health unit secondary to psychosis. Called to reevaluate patient due to increasing lower extremity edema. Patient seen and examined. He reports that he has had intermittent lower extremity edema at home for the last several months. He states that he saw his family doctor and wanted x-rays but they did not want to proceed with x-rays. He is fixated on the fact that he needs new shoes as he was not allowed to have laces with his tennis shoes and is now wearing flip-flops. He then talks about how to obtain medical shoes ordered and needing to pick them up. Will use that to shoes will fix his lower extremity edema. We discussed that this could be coming from his hypothyroidism ordered due to heart issues. I have asked him to follow-up with his family doctor on discharge for an echocardiogram, he then starts talking about his prescription shoes again. He states that his edema got worse over the last 3-4 days. He typically takes help with that at home. He denies any sick shortness of breath, wheezing, coughing. Not having to use excess pillows at night to help with sleep. He states that typically his legs are better at night and worse during the day when he is up and walking. He denies any history of any heart problems. He states he recently moved here from [place]. He has no other complaints currently. Discussed with his psychiatrist he states he had significant increase in his lower extremity edema over the weekend. Reviewed his medications and he has not missed any doses of medications. Objective - Vital Signs Vital signs: Vital Signs Temp 97.4 F L 08/10/19 05:33 Pulse 108 H 08/10/19 05:33 Resp 20 08/10/19 05:33 BP 130/71 08/10/19 05:33 Pulse Ox 95 07/30/19 13:22 Intake & Output 08/09/19 08/10/19 08/10/19 18:59 06:59 18:59 Weight 147.4 kg - Exam General: non toxic, no distress, appears at stated age Derm: warm, dry Head: atraumatic, normocephalic, symmetric Eyes: EOMI, no lid lag, anicteric sclera Mouth: no lip lesion, mucus membranes moist Cardiovascular: S1S2 reg, no murmur, positive posterior tibial pulse bilateral, Lungs: CTA bilateral, no rhonchi, no rales , no accessory muscle use Ext: no gross muscle atrophy, 2+ nonpitting edema, no contractures Neuro: CN II-XI grossly intact, no focal neuro deficits Psych: Alert, oriented, anxious - Labs CBC & Chem 7: 07/30/19 03:20 07/30/19 03:20 Labs: Abnormal Lab Results - Last 24 Hours (Table) 08/09/19 08/10/19 Range/Units 20:13 07:32 POC Glucose (mg/dL) 160 H 122 H (75-99) mg/dL Assessment and Plan Assessment: Lower extremity edema -Torsemide 20 mg 1 now, then increase torsemide to 20 mg daily -Check basic metabolic profile and magnesium -Outpatient follow-up with PCP for echocardiogram -Check TSH as being be related to his significant hypothyroidism Hypothyroidism -TSH greater than 30 on admission -Has been on Synthroid -Recheck TSH -Elevate legs, compression stockings Diabetes mellitus type 2 -Follow blood sugars -Continue metformin -A1c 7.1 Morbid obesity -Structured outpatient weight loss Thank you for allowing us to participate in the care of this patient. We will follow peripherally. Do not hesitate to contact us with questions. Someone can be reached from the [facility] hospitalist group at all hours of the day at [phone].
[2019-08-10 20:30] LABS: Glucose,Whole Blood 156 mg/dL (75-99)
[2019-08-10] MEDS ORDERED: DIVALPROEX ER 250 MG TAB.ER.24H PO SCH (21:00)
[2019-08-10] MEDS: risperiDONE 1 MG TAB PO SCH (21:27)
[2019-08-10] MEDS: ATORVASTATIN 40 MG TAB PO SCH (21:27)
[2019-08-11] MEDS: LEVOTHYROXINE 75 MCG TAB PO SCH (05:49)
[2019-08-11 07:55] LABS: Glucose,Whole Blood 125 mg/dL (75-99)
[2019-08-11 08:23] LABS: Calcium 9.6 mg/dL (8.4-10.2); Magnesium 1.9 mg/dL (1.6-2.3); Potassium 4.5 mmol/L (3.5-5.1)
[2019-08-11] MEDS: metFORMIN 500 MG TAB PO SCH ×2 (09:03→20:00)
[2019-08-11] MEDS: ASPIRIN 81 MG PO SCH (09:03)
[2019-08-11] MEDS: DIVALPROEX ER 500 MG TAB.ER.24H PO SCH ×2 (09:03→20:00)
[2019-08-11] MEDS: risperiDONE ODT 1 MG TAB PO SCH (09:04)
[2019-08-11] MEDS: TORSEMIDE 20 MG TAB PO SCH (09:04)
--- NOTE | 2019-08-11 09:41 | P.PN ---
Progress Note - Text Progress Note Date: 08/11/19 Interval History: Patient was seen this morning sitting on a chair and was yelling at another pa tient who he claims was "in my face bothering me". Patient was directable and was agreeable to speak to public relations writer in the office. Patient appeared to be upset and angry and need to be directed back to his room so he could talk. Patient was preoccupied with the other patient and states that he has been annoyed by him since the patient arrived on the unit. Patient does state that he is doing better however and claims that his mood is "just fine" and denies any depressive symptoms. He states that he slept good last night, sleeping throughout the night. He states that he is going to some groups and is looking forward to going to the next 1 and requested for public relations writer to open the door so he can sit in the day room. At this time patient denies any suicidal or homical ideations, intent or plan. Patient denies any auditory, visual hallucinations. Patient denies any side effects from the medications and has been compliant with meds. Patient did state that his legs were feeling better since putting on the compression stockings and he is able to walk better on the unit. Mental Status Exam: General Appearance: Patient appears to be older than stated age, is obese alert however somewhat irritable this morning. Behavior: Patient is seated in chair, appears to be upset at another patient and angry. Speech: Patient's speech is more logical and nonpressured. Mood/Affect: Patient reports their mood is "just fine", affect is incongruent Suicidality/Homicidality: Patient denies having any suicidal or homicidal ideation intent or plan. Perceptions: Patient denies any auditory or visual hallucinations. Though content/process: There is no evidence of any delusional thought content and thought process is tangential and illogical at times however is improving. Memory and concentration: AOX2, to person and place only. Judgment and insight: Poor, improving mildly Assessment Psychosis unspecified Nicotine dependence Plan: -Patient continues to meet criteria for inpatient psychiatric admission for symptom stabilization and safety. Patient did sign the adult voluntary form however refused to sign for the medications. -Medications: We will continue with risperidone 1 mg every morning + 3 mg daily at bedtime for psychosis. We'll plan to increase as tolerated. Will increase Depakote to 500 mg + 500mg for mood stabilization/lability with plan to increase as tolerated. -Geodon and Ativan PRN for agitation/aggression -NRT - nicotine patch -SW on board for discharge planning. We'll likely need brother or other family member to visit patient to evaluate for baseline.
[2019-08-11 09:51] LABS: T4, Free (Free Thyroxine) 0.66 ng/dL (0.78-2.19)
[2019-08-11] MEDS ORDERED: TORSEMIDE 20 MG TAB PO ONE (13:30)
[2019-08-11] MEDS: ATORVASTATIN 40 MG TAB PO SCH (20:00)
[2019-08-11] MEDS: risperiDONE 1 MG TAB PO SCH (20:00)
[2019-08-11 20:13] LABS: Glucose,Whole Blood 147 mg/dL (75-99)
[2019-08-11] MEDS: MAGNESIUM HYDROXIDE 2,400 MG/10 ML CUP PO PRN (21:27)
[2019-08-12] MEDS: ZIPRASIDONE 20 MG VIAL IM PRN (03:04)
[2019-08-12] MEDS: LEVOTHYROXINE 125 MCG TAB PO SCH (06:07)
[2019-08-12 07:40] LABS: Glucose,Whole Blood 143 mg/dL (75-99)
[2019-08-12] MEDS: ASPIRIN 81 MG PO SCH (08:55)
[2019-08-12] MEDS: metFORMIN 500 MG TAB PO SCH ×2 (08:55→21:22)
[2019-08-12] MEDS: risperiDONE ODT 1 MG TAB PO SCH (08:55)
[2019-08-12] MEDS: TORSEMIDE 20 MG TAB PO SCH (08:55)
[2019-08-12] MEDS: DIVALPROEX ER 500 MG TAB.ER.24H PO SCH ×2 (08:55→21:22)
--- NOTE | 2019-08-12 10:41 | P.PN ---
Progress Note - Text Progress Note Date: 08/12/19 Interval History: Patient was seen this morning wandering the hallways and was agreeable to speak to com writer in the office. Patient was directable and appeared to be calmer this morning. Patient appeared to still be upset and angry at another patient on the unit and stated that he is trying to mind his own business however the other patient is "getting in my face and pointing fingers at me". Patient was preoccupied with the other patient and wanting to do better for himself thoughts like he is in treatment. Patient does state that he is doing better overall and is gradually improving with regards to his mood. He denies any depressive symptoms. He states that he slept poorly last night ideation as he was thinking about the other patient and could not sleep last night. 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 At this time patient denies any suicidal or homical ideations, intent or plan. Patient denies any auditory, visual hallucinations. Patient denies any side effects from the medications and has been compliant with meds. Patient did state that his legs were feeling better since putting on the compression stockings and he is able to walk better on the unit. Mental Status Exam: General Appearance: Patient appears to be older than stated age, is obese alert and directable. Behavior: Patient is seated in chair, appears to be upset at another patient and angry. Speech: Patient's speech is more logical and nonpressured. Tangential at times Mood/Affect: Patient reports their mood is "fine", affect is incongruent Suicidality/Homicidality: Patient denies having any suicidal or homicidal ideation intent or plan. Perceptions: Patient denies any auditory or visual hallucinations. Though content/process: There is no evidence of any delusional thought content and thought process is tangential at times however is improving. Memory and concentration: AOX2, to person and place only. Judgment and insight: Poor, improving mildly Assessment Psychosis unspecified Nicotine dependence Plan: -Patient continues to meet criteria for inpatient psychiatric admission for symptom stabilization and safety. Patient did sign the adult voluntary form however refused to sign for the medications. -Medications: We will continue increasing risperidone to 2 mg every morning + 3 mg daily at bedtime for psychosis. We'll plan to increase as tolerated. Will increase Depakote to 500 mg + 500mg for mood stabilization/lability with plan to increase as tolerated. -Geodon and Ativan PRN for agitation/aggression -NRT - nicotine patch -SW on board for discharge planning. Will continue attempting to reach out to patient's brother to visit patient and evaluate to compare to his baseline.
[2019-08-12 19:57] LABS: Glucose,Whole Blood 174 mg/dL (75-99)
[2019-08-12] MEDS: risperiDONE 1 MG TAB PO SCH (21:22)
[2019-08-12] MEDS: ATORVASTATIN 40 MG TAB PO SCH (21:22)
[2019-08-13] MEDS: LORazepam 1 MG TAB PO PRN (01:08)
[2019-08-13] MEDS: LEVOTHYROXINE 125 MCG TAB PO SCH (06:12)
[2019-08-13 07:58] LABS: Glucose,Whole Blood 134 mg/dL (75-99)
[2019-08-13] MEDS: metFORMIN 500 MG TAB PO SCH ×2 (09:48→21:14)
[2019-08-13] MEDS: risperiDONE 2 MG TAB PO SCH (09:48)
[2019-08-13] MEDS: ASPIRIN 81 MG PO SCH (09:48)
[2019-08-13] MEDS: DIVALPROEX ER 500 MG TAB.ER.24H PO SCH ×2 (09:49→21:15)
[2019-08-13] MEDS: TORSEMIDE 20 MG TAB PO SCH (09:49)
[2019-08-13 11:45] VITALS: BMI 50.8
--- NOTE | 2019-08-13 12:34 | P.PN ---
Progress Note - Text Progress Note Date: 08/13/19 Interval History: Patient was seen this morning wandering the hallways and was agreeable to speak to law writer in the office. Patient was directable and less intrusive this morning and appeared to be calmer. Patient remains tangential however is logical and has poor insight and judgment. Patient appeared to still be upset and angry at another patient on the unit and requested to the law writer several times that he speak to the other patient to have him stay away from him. Patient does state that he is doing better overall and is gradually improving with regards to his mood and his thoughts and claimed that he is remaining calm her. He denies any depressive symptoms. He states that he slept "like a baby" last night stating that he got good rest. He states that he is going to some groups which is helping him. At this time patient denies any suicidal or homical ideations, intent or plan. Patient denies any auditory, visual hallucinations. Patient denies any side effects from the medications and has been compliant with meds. Patient did state that his legs were feeling better since putting on the compression stockings. Mental Status Exam: General Appearance: Patient appears to be older than stated age, is obese alert and directable. Behavior: Patient is seated in chair and appears less angry today. Speech: Patient's speech is more logical and nonpressured. Tangential Mood/Affect: Patient reports their mood is "all right", affect is incongruent Suicidality/Homicidality: Patient denies having any suicidal or homicidal ideation intent or plan. Perceptions: Patient denies any auditory or visual hallucinations. Though content/process: There is no evidence of any delusional thought content and thought process is tangential at times however is improving. Memory and concentration: AOX2, to person and place only. Judgment and insight: Poor, improving mildly Assessment Psychosis unspecified Nicotine dependence Plan: -Patient continues to meet criteria for inpatient psychiatric admission for symptom stabilization and safety. Patient did sign the adult voluntary form however refused to sign for the medications. -Medications: We will continue risperidone to 2 mg every morning + 3 mg daily at bedtime for psychosis. We'll plan to increase as tolerated. Will continue with Depakote to 500 mg + 500mg for mood stabilization/lability with plan to increase as tolerated. -Geodon and Ativan PRN for agitation/aggression -NRT - nicotine patch -SW on board for discharge planning. Patient's brother will be coming in to visit patient over the weekend and will be able to plan for discharge next week likely.
[2019-08-13 20:10] LABS: Glucose,Whole Blood 148 mg/dL (75-99)
[2019-08-13] MEDS: risperiDONE 1 MG TAB PO SCH (21:15)
[2019-08-13] MEDS: ATORVASTATIN 40 MG TAB PO SCH (21:15)
[2019-08-14] MEDS: MAGNESIUM HYDROXIDE 2,400 MG/10 ML CUP PO PRN (01:52)
[2019-08-14] MEDS: LORazepam 1 MG TAB PO PRN (01:56)
[2019-08-14] MEDS: LEVOTHYROXINE 125 MCG TAB PO SCH (06:08)
[2019-08-14 07:39] LABS: Glucose,Whole Blood 236 mg/dL (75-99)
[2019-08-14] MEDS: ASPIRIN 81 MG PO SCH (08:33)
[2019-08-14] MEDS: risperiDONE 2 MG TAB PO SCH (08:34)
[2019-08-14] MEDS: DIVALPROEX ER 500 MG TAB.ER.24H PO SCH ×2 (08:34→21:19)
[2019-08-14] MEDS: TORSEMIDE 20 MG TAB PO SCH (08:34)
[2019-08-14] MEDS: metFORMIN 500 MG TAB PO SCH ×2 (08:34→21:19)
--- NOTE | 2019-08-14 13:28 | P.PN ---
Progress Note - Text Progress Note Date: 08/14/19 Interval History: Patient was seen this morning wandering the hallways and was agreeable to speak to teletypewriter installer in the office. Patient was directable and less intrusive this morning. Patient's tangentiality and conversation has mildly improved and patient is more logical in his answers however continues to have limited insight and judgment. He spoke about not wanting to get his brother involved in his life and how he wants a moon for his own apartment when he leaves the hospital and states that "I have all the time and the world". Patient appears to be less upset today and does not speak about the other patient on the unit which she is having conflicts with and states "I'm just ignoring him and doing my own thing". Patient does state that he is doing better overall and is mood and his thoughts have improved. He denies any depressive symptoms. He states that he slept "just fine" last night stating that he got good rest. At this time patient denies any suicidal or homical ideations, intent or plan. Patient denies any auditory, visual hallucinations. Patient denies any side effects from the medications and has been compliant with meds. Mental Status Exam: General Appearance: Patient appears to be older than stated age, is obese alert and directable. Behavior: Patient is seated in chair, no agitation. Speech: Patient's speech is more logical and nonpressured. Tangentiality is improving. Mood/Affect: Patient reports their mood is "just fine", affect is incongruent Suicidality/Homicidality: Patient denies having any suicidal or homicidal ideation intent or plan. Perceptions: Patient denies any auditory or visual hallucinations. Though content/process: There is no evidence of any delusional thought content and thought process is tangential at times however is improving. Memory and concentration: AOX2, to person and place only. Judgment and insight: Poor, improving mildly Assessment Psychosis unspecified Nicotine dependence Plan: -Patient continues to meet criteria for inpatient psychiatric admission for symptom stabilization and safety. Patient did sign the adult voluntary form however refused to sign for the medications. -Medications: We will continue risperidone to 2 mg every morning + 3 mg daily at bedtime for psychosis. We'll plan to increase as tolerated. Will continue with Depakote to 500 mg + 500mg for mood stabilization/lability. -Geodon and Ativan PRN for agitation/aggression -NRT - nicotine patch -SW on board for discharge planning. Patient's brother will be coming in to visit patient over the weekend and will be able to plan for discharge next week likely. Patient was requesting other option to possibly go to a jail.
[2019-08-14] MEDS ORDERED: PALIPERIDONE IM 234 MG/1.5 ML SYG IM STA (17:21)
[2019-08-14 20:22] LABS: Glucose,Whole Blood 154 mg/dL (75-99)
[2019-08-14] MEDS: ATORVASTATIN 40 MG TAB PO SCH (21:18)
[2019-08-14] MEDS: risperiDONE 1 MG TAB PO SCH (21:19)
[2019-08-15] MEDS: LEVOTHYROXINE 125 MCG TAB PO SCH (06:02)
[2019-08-15 07:48] LABS: Glucose,Whole Blood 125 mg/dL (75-99)
[2019-08-15] MEDS: risperiDONE 1 MG TAB PO SCH ×2 (08:08→21:38)
[2019-08-15] MEDS: metFORMIN 500 MG TAB PO SCH ×2 (08:08→21:38)
[2019-08-15] MEDS: ASPIRIN 81 MG PO SCH (08:09)
[2019-08-15] MEDS: TORSEMIDE 20 MG TAB PO SCH (08:09)
[2019-08-15] MEDS: DIVALPROEX ER 500 MG TAB.ER.24H PO SCH ×2 (08:09→21:38)
--- NOTE | 2019-08-15 11:41 | P.PN ---
Progress Note - Text Interval history: The patient's approaches my office to speak. He indicates that things have been getting better since he has been in the hospital. He feels that his thinking is clear. He is rather focused and frustrated with his brother. He indicates they had a phone conversation the did not go well. He feels he's belittled by his brother and he does not want to reside with him. He feels that there was going to be a support meeting scheduled for today but he expects his brother would not show up. We discussed some coping skills he could use to deal with these feelings of frustration but he is resistant to those suggestions. He has no questions or concerns regarding his medication he remains compliant with medication. Invega Sustenna was initiated. He reports that his sleep was restless. Appetite stable. Mental status exam: The patient is a morbidly obese male he is dressed in his own clothing is a disheveled appearance hygiene is fair. Eye contact is appropriate. Speech is fluent and spontaneous nonpressured. He is verbose but directable. He reports feelings of frustration toward his brother but reports no homicidal ideation intent or plan. He reports no suicidal ideation intent or plan. He is reporting no auditory or visual hallucinations or any specific delusions. Insight and judgment limited. He demonstrates no verbal or physical aggressiveness or any involuntary repetitive movements. Plan: The patient will be continued on his psychotropic medications as written. We will monitor him for safety. He is encouraged to control his reactions when dealing with his brother. Vital signs reviewed. He is encouraged to continue participating in groups.
[2019-08-15 20:34] LABS: Glucose,Whole Blood 142 mg/dL (75-99)
[2019-08-15] MEDS: ATORVASTATIN 40 MG TAB PO SCH (21:38)
[2019-08-16] MEDS: LEVOTHYROXINE 125 MCG TAB PO SCH (05:48)
[2019-08-16 07:54] LABS: Glucose,Whole Blood 124 mg/dL (75-99)
[2019-08-16] MEDS: DIVALPROEX ER 500 MG TAB.ER.24H PO SCH ×2 (08:48→20:45)
[2019-08-16] MEDS: metFORMIN 500 MG TAB PO SCH ×2 (08:48→20:45)
[2019-08-16] MEDS: ASPIRIN 81 MG PO SCH (08:48)
[2019-08-16] MEDS: risperiDONE 1 MG TAB PO SCH ×2 (08:48→20:46)
[2019-08-16] MEDS: TORSEMIDE 20 MG TAB PO SCH (08:52)
--- NOTE | 2019-08-16 10:54 | P.PN ---
Progress Note - Text Interval history: The patient is found in the hallway he follows me to an interview room. He states that he was the first one of this morning to take a shower and wash his clothes. He indicates appetite is stable he feels he is gaining weight. Staff reported he didn't sleep well last night he makes no comments on that. He has no questions or concerns regarding his medication. He spent several minutes stating he does not wish to reside with his brother and states he'll stay here as long as he needs to to find a different place. Mental status exam: The patient is a morbidly obese male he is dressed in his own clothing hygiene grooming adequate. Speech is fluent and spontaneous nonpressured he is verbose. He is focused on his brother and not returning to his brother's home. He reports no suicidal or homicidal ideation. He is endorsing no auditory or visual hallucinations. He may have residual delusional thinking but does not spontaneously describe it or acknowledge it when questioned. Insight and judgment limited. He demonstrates no verbal or physical aggressiveness or any involuntary repetitive movements. Plan: The patient's will continue on his current psychotropic medications we will monitor him for safety. He is encouraged to participate in group. Idle signs reviewed.
[2019-08-16 20:08] LABS: Glucose,Whole Blood 213 mg/dL (75-99)
[2019-08-16] MEDS: ATORVASTATIN 40 MG TAB PO SCH (20:46)
[2019-08-17] MEDS: LEVOTHYROXINE 125 MCG TAB PO SCH (06:02)
[2019-08-17 07:45] LABS: Glucose,Whole Blood 113 mg/dL (75-99)
[2019-08-17] MEDS: ASPIRIN 81 MG PO SCH (09:24)
[2019-08-17] MEDS: DIVALPROEX ER 500 MG TAB.ER.24H PO SCH ×2 (09:25→20:54)
[2019-08-17] MEDS: risperiDONE 1 MG TAB PO SCH ×2 (09:25→20:53)
[2019-08-17] MEDS: metFORMIN 500 MG TAB PO SCH ×2 (09:26→20:52)
[2019-08-17] MEDS: TORSEMIDE 20 MG TAB PO SCH (09:27)
--- NOTE | 2019-08-17 09:35 | PN ---
PROGRESS NOTE DATE OF SERVICE: 08/17/2019 CHIEF COMPLAINT: Patient was admitted for delusions, bizarre behavior and aggressive behavior. He had temple preoccupation, paranoia and disorganized thoughts and behavior. INTERVAL HISTORY: The patient has been doing fair. He had a quiet evening last night. He comes out in the day area. He will interact with others. He attended most groups yesterday. He tends to be quiet and somewhat withdrawn when he is in the group. He will initiate some interactions with others. He slept well last night. Today he has been up. He has been out on the unit. He initiated some interaction with me asking about when I would see him and what thoughts I had regarding his care. He otherwise had no complaints or concerns today. He feels that his mood is improving and his thoughts seem to be clear. He has been appropriate in his interaction with staff. He is cooperative with care. He tolerates his psychotropic medications. MENTAL STATUS: Patient gave fairly good eye contact. Psychomotor activity was slowed. Speech was monotone. He answered questions with brief responses. He did not say a lot. His affect was somewhat blunted. His mood was quiet though not clearly down or depressed. He did not appear to be significantly distressed. There was no indication of his responding to internal stimuli. Cognition was clear. He was oriented to his situation and surroundings. ASSESSMENT: I will continue the current diagnosis and treatment plan. I will continue psychotropic medications the same. Patient appears to be making progress. We will continue to focus on stabilization and discharge planning. JANES / CYNDIE: [id number] /
[2019-08-17] MEDS: ATORVASTATIN 40 MG TAB PO SCH ×2 (20:52→20:55)
[2019-08-18] MEDS: LEVOTHYROXINE 125 MCG TAB PO SCH (05:57)
[2019-08-18] MEDS: metFORMIN 500 MG TAB PO SCH ×2 (08:33→20:37)
[2019-08-18] MEDS: DIVALPROEX ER 500 MG TAB.ER.24H PO SCH ×2 (08:33→20:38)
[2019-08-18] MEDS: TORSEMIDE 20 MG TAB PO SCH (08:34)
[2019-08-18] MEDS: risperiDONE 1 MG TAB PO SCH (08:34)
[2019-08-18] MEDS: ASPIRIN 81 MG PO SCH (08:36)
--- NOTE | 2019-08-18 12:15 | P.PN ---
Progress Note - Text Progress Note Date: 08/18/19 Interval History: Patient was seen this morning wandering the hallways and was agreeable to speak to underwriter in the office. Patient was directable and cooperative this morning. Patient was less tangential today during conversation and appears to have an improved insight and judgment. He stated that he had a good weekend and feels better on his medications. He also states that he tolerated the Invega injection well on Saturday. He states that his brother came to visit him on Saturday and is agreeable to take him back after discharge which he is looking forward to. He spoke about continuing to have more independence when he leaves the hospital and eventually wanting to have his own place. Patient appears to be calmer and appropriate. He states that he was been going to groups and finding them beneficial. Patient does state that he is doing better overall and is mood and his thoughts have improved. He denies any depressive symptoms. He states that he slept "well" last night. At this time patient denies any suicidal or homical ideations, intent or plan. Patient denies any auditory, visual hallucinations. Patient denies any side effects from the medications and has been compliant with meds. Mental Status Exam: General Appearance: Patient appears to be older than stated age, is obese alert and directable. Behavior: Patient is seated in chair, no agitation. Speech: Patient's speech is logical and nonpressured. Mood/Affect: Patient reports their mood is "well", affect is congruent Suicidality/Homicidality: Patient denies having any suicidal or homicidal ideation intent or plan. Perceptions: Patient denies any auditory or visual hallucinations. Though content/process: There is no evidence of any delusional thought content and thought process is tangential at times however is improving. Memory and concentration: AOX2, to person and place only. Judgment and insight: Fair, improving mildly Assessment Psychosis unspecified Nicotine dependence Plan: -Patient continues to meet criteria for inpatient psychiatric admission for symptom stabilization and safety. Patient did sign the adult voluntary form however refused to sign for the medications. -Medications: We will continue decreasing by mouth Risperdal as it will be discontinued today.Will continue with Depakote to 500 mg + 500mg for mood stabilization/lability. -Patient received Invega sustenna 234 mg IM injection on 08/14/2019. Will be due for his 156 mg IM injection tomorrow prior to discharge. -Geodon and Ativan PRN for agitation/aggression -NRT - nicotine patch -SW on board for discharge planning. Patient's brother will be willing to have patient back after discharge. Likely discharge tomorrow.
[2019-08-18] MEDS: ACETAMINOPHEN TAB 325 MG TAB PO PRN ×2 (15:09→21:14)
[2019-08-18] MEDS: SENNOSIDES 8.6 MG TAB PO PRN (16:27)
--- NOTE | 2019-08-18 18:40 | XR ---
EXAMINATION TYPE: XR knee complete LT DATE OF EXAM: 08/18/2019 COMPARISON: NONE HISTORY: Fall. Knee pain TECHNIQUE: 3 views. There is moderate narrowing of the medial joint space. There is spurring of the femoral and tibial c ondyles. There is moderate spurring at the patellofemoral joint. I see no fracture. IMPRESSION: Moderately severe osteoarthritis that is more severe in the medial joint space. No fractu re seen.
--- NOTE | 2019-08-18 18:41 | XR ---
EXAMINATION TYPE: XR hand complete LT DATE OF EXAM: 08/18/2019 COMPARISON: NONE HISTORY: Pain and swelling TECHNIQUE: 3 views FINDINGS: There is spurring at the first carpometacarpal joint. I see no fracture nor dislocation. Me tacarpals appear intact. There are no erosions. There is soft tissue swelling of the hand. There is n arrowing of the IP joint spaces. IMPRESSION: Osteoarthritic changes. Soft tissue swelling. No sign of inflammatory arthritis.
--- NOTE | 2019-08-18 18:42 | XR ---
EXAMINATION TYPE: XR ankle complete LT DATE OF EXAM: 08/18/2019 COMPARISON: NONE HISTORY: Fall. Pain. TECHNIQUE: 3 views FINDINGS: There is some soft tissue mild swelling around the ankle joint. There are plantar and Achil les calcaneal spurs. Joint spaces are fairly normal. IMPRESSION: Calcaneal spurring. Soft tissue swelling. No fracture.
[2019-08-19] MEDS: ACETAMINOPHEN TAB 325 MG TAB PO PRN (01:30)
[2019-08-19] MEDS: LEVOTHYROXINE 125 MCG TAB PO SCH (05:58)
[2019-08-19 06:32] VITALS: BP 130/75; PULSE 97; RESP 18; TEMP 98.1
[2019-08-19] MEDS: TORSEMIDE 20 MG TAB PO SCH (08:38)
[2019-08-19] MEDS: ASPIRIN 81 MG PO SCH (08:38)
[2019-08-19] MEDS: metFORMIN 500 MG TAB PO SCH (08:39)
[2019-08-19] MEDS: DIVALPROEX ER 500 MG TAB.ER.24H PO SCH (08:39)
[2019-08-19] MEDS ORDERED: PALIPERIDONE IM 156 MG/ML SYG IM ONE (09:00)
--- NOTE | 2019-08-19 11:41 | P.DS ---
Providers Date of admission: 07/30/19 13:10 Expected date of discharge: 08/19/19 Attending physician: Korey Mo MD Consults: 07/30/19 13:17 Consult Physician Routine Consulting Provider: Flora Guerra Consult Reason/Comments: history and physical Do you want consulting provider notified?: Yes Primary care physician: Stated None - Discharge Diagnosis(es) (1) Schizoaffective disorder, bipolar type Current Visit: Yes Status: Acute Priority: High (2) Nicotine dependence Current Visit: Yes Status: Acute Priority: Low Hospital Course: Admission HPI: Patient is a 59-year-old male who is , has 4 kids and is currently unemployed living with his brother. Patient presented to the hospital my concerns of his brother with patient's ongoing delusions and bizarre behavior/aggression. According to report from clinical social worker who spoke with patient's brother, patient has been having multiple hospitalizations for bizarre behavior which has been occurring since the 80s. Most recently patient was in [place] living and was getting lost and needed to be tracked down by him who paid to have his brother moved up to [place] to be better looked after. As per report, brother states that patient has been religiously preoccupied, paranoid and rambles. Patient was admitted to the unit and was noted to be somewhat directable however was irritable and aggressive with staff and was acting bizarre. Patient was agreeable to be seen for interview in the office and brought with him papers and colorings from what he was doing in group. Patient appeared to have poor hygiene and poor grooming, appeared to be irritable and hostile, was demanding that information writer picker/puller the phone and talk with his brother while he was in the room to explain to him that she should be left alone. Patient has poor insight into his condition and only spoke about how he is being mistreated by his brother and his siblings who were trying to take away his independence. Patient is tangential, illogical and loud and very demanding with information writer, swearing at times. He speaks about being controlled in his everyday life and states "I'm being attacked by other patients" when describing other people on the unit. When asked about his situation in [place] patient gives limited details and states that his sister was lying about him and lies about everything. Patient is oriented to person and place only and when asked certain questions about his thoughts about self-harm or harm to others and if he hears voices patient immediately gets agitated and states "I don't want to talk about that BS right now". Patient admits to smoking one pack a day of cigarettes denies alcohol use or marijuana use or any other substance use. Hospital course: Upon admission to the unit patient was initially bizarre, aggressive irritable and tangential/illogical. Patient was however directable and agreeable to commence treatment. Patient got along well with most other patients on the unit and followed unit protocol. Patient was compliant with the medications and denied any side effects throughout hospital course. Patient was started on Depakote which was increased to 500 mg twice a day for mood stabilization. Patient was also started on Risperdal by mouth and was increased to 3 mg +2 mg daily for aggression/psychosis and patient was agreeable to be put on Invega Sustenna to insure compliance. Patient received the first dose of 234 mg IM the long-acting injection on 08/14/2019. Patient also received the second dose of 156 mg IM on 08/19/2019. Patient will be due for his next dose of 234 mg IM maintenance dose on 09/09/2019. Patient spoke of [his] stressors at home and in his life and engaged in therapy both group and individual. Patient was also seen by medical team for history and physical exam. Patient admitted to having an increase of swelling in his legs and his dose of torsemide was increased by the medical doctor. Patient also had an elevated TSH and his dose of levothyroxine was increased as well. This will need to be rechecked as an outpatient. Patient also sustained a fall one day prior to discharge and complained of pain in his left leg and hand and x-rays were performed which did not show any acute changes or fractures. Throughout the course of the hospitalization patient gradually improved with regards to mood, irritability/aggression, behavior, sleep and became future oriented with improved insight and judgment. On the day of discharge patient denied any suicidal or homicidal ideations intent or plan denied any auditory or visual chris llucinations. Patient endorsed wanting to live for his health and to find a new home for himself. The patient denied any access to guns or weapons. Patient denied any paranoia and did not endorse any delusions. Patient does not have a significant history of substance abuse however was counseled on abstaining from all substances including alcohol and marijuana. Patient was also counseled on the medications and need for regular compliance and was encouraged to follow-up with their outpatient appointment for mental health and also for primary care. Prior to discharge a family meeting will be arranged by clinical social worker to answer any questions and ensure safety upon discharge. Mental status exam: General Appearance: Patient appears to be older than stated age is alert, directable, and cooperative. Patient is in no acute distress and has fair hygiene and grooming Behavior: Patient is calmly seated without any agitated behavior. Speech: Patient's speech is fluent and nonpressured. Mood/Affect: Patient reports their mood is "better ", affect is congruent and euthymic. Suicidality/Homicidality: Patient denies having any suicidal or homicidal ideation intent or plan. Perceptions: Patient denies any auditory or visual hallucinations. Though content/process: There is no evidence of any delusional thought content and thought process is linear and goal-directed. Memory and concentration: AOX3, grossly intact for the purposes of this session. Can spell "WORLD" backwards correctly. Judgment and insight: fair, improved Impression: Schizoaffective disorder, bipolar type Nicotine dependence Plan: -Continue with discharge today as patient has improved and stabilized psychiatrically and is not currently an imminent threat to himself and/or others. -Continue medications: Patient will require the maintenance dose of 234 mg Invega Sustenna to be given on 09/09/2019 and will be given every monthly for psychosis/mood stabilization. Patient also to continue on Depakote 500 mg twice a day for mood stabilization. -Patient was counseled on the need for medication compliance and appropriate follow-up at mental health and also primary care for medical issues. Patient verbalized understanding and agreed. -Social work to arrange for and conduct family meeting to ensure safety upon discharge and answer any questions/concerns. Social work also to arrange for patients follow up appointments for outpatient psychiatric follow-up and primary care follow-up. -Patient counseled on abstaining from recreational drugs and marijuana and alcohol. Was informed/educated on the adverse effects on their physical and mental health. -Patient was instructed to return to the hospital or seek immediate medical care if their psychiatric or medical systems do worsen or reoccur. Allergies Allergy/AdvReac Type Severity Reaction Status Date / Time No Known Allergies Allergy Verified 07/30/19 02:40 Laboratory Results WBC 7.1 k/uL (3.8-10.6) 07/30/19 03:20 RBC 4.81 m/uL (4.30-5.90) 07/30/19 03:20 Hgb 14.4 gm/dL (13.0-17.5) 07/30/19 03:20 Hct 43.6 % (39.0-53.0) 07/30/19 03:20 MCV 90.8 fL (80.0-100.0) 07/30/19 03:20 MCH 29.9 pg (25.0-35.0) 07/30/19 03:20 MCHC 32.9 g/dL (31.0-37.0) 07/30/19 03:20 RDW 15.4 % (11.5-15.5) 07/30/19 03:20 Plt Count 250 k/uL (150-450) 07/30/19 03:20 Neutrophils % 63 % 07/30/19 03:20 Lymphocytes % 23 % 07/30/19 03:20 Monocytes % 7 % 07/30/19 03:20 Eosinophils % 5 % 07/30/19 03:20 Basophils % 1 % 07/30/19 03:20 Neutrophils # 4.5 k/uL (1.3-7.7) 07/30/19 03:20 Lymphocytes # 1.6 k/uL (1.0-4.8) 07/30/19 03:20 Monocytes # 0.5 k/uL (0-1.0) 07/30/19 03:20 Eosinophils # 0.4 k/uL (0-0.7) 07/30/19 03:20 Basophils # 0.1 k/uL (0-0.2) 07/30/19 03:20 Sodium 138 mmol/L (137-145) 08/11/19 07:12 Potassium 4.5 mmol/L (3.5-5.1) 08/11/19 07:12 Chloride 98 mmol/L (98-107) 08/11/19 07:12 Carbon Dioxide 30 mmol/L (22-30) 08/11/19 07:12 Anion Gap 10 mmol/L 08/11/19 07:12 BUN 19 mg/dL (9-20) 08/11/19 07:12 Creatinine 1.04 mg/dL (0.66-1.25) 08/11/19 07:12 Est GFR (CKD-EPI)AfAm 90 (>60 ml/min/1.73 sqM) 08/11/19 07:12 Est GFR (CKD-EPI)NonAf 78 (>60 ml/min/1.73 sqM) 08/11/19 07:12 Glucose 116 mg/dL (74-99) H 08/11/19 07:12 POC Glucose (mg/dL) 113 mg/dL (75-99) H 08/17/19 07:43 POC Glu Sap Bw Consultant ID Shu Holguin 08/17/19 07:[address] Glu mg/dL 157 07/30/19 03:20 Hemoglobin A1c 7.1 % (4.0-6.0) H 07/30/19 03:20 Calcium 9.6 mg/dL (8.4-10.2) 08/11/19 07:12 Magnesium 1.9 mg/dL (1.6-2.3) 08/11/19 07:12 Total Bilirubin 0.5 mg/dL (0.2-1.3) 07/30/19 03:20 AST 45 U/L (17-59) 07/30/19 03:20 ALT 39 U/L (21-72) 07/30/19 03:20 Alkaline Phosphatase 34 U/L (38-126) L 07/30/19 03:20 Total Protein 6.7 g/dL (6.3-8.2) 07/30/19 03:20 Albumin 4.2 g/dL (3.5-5.0) 07/30/19 03:20 TSH 47.000 mIU/L (0.465-4.680) H 08/11/19 07:12 Free T4 0.66 ng/dL (0.78-2.19) L 08/11/19 07:12 Urine Color Yellow 07/30/19 04:31 Urine Appearance Clear (Clear) 07/30/19 04:31 Urine pH 5.5 (5.0-8.0) 07/30/19 04:31 Ur Specific [place] 1.026 (1.001-1.035) 07/30/19 04:31 Urine Protein Trace (Negative) H 07/30/19 04:31 Urine Glucose (UA) Negative (Negative) 07/30/19 04:31 Urine Ketones Negative (Negative) 07/30/19 04:31 Urine Blood Negative (Negative) 07/30/19 04:31 Urine Nitrite Negative (Negative) 07/30/19 04:31 Urine Bilirubin Negative (Negative) 07/30/19 04:31 Urine Urobilinogen <2.0 mg/dL (<2.0) 07/30/19 04:31 Ur Leukocyte Esterase Small (Negative) H 07/30/19 04:31 Urine RBC 1 /hpf (0-5) 07/30/19 04:31 Urine WBC 6 /hpf (0-5) H 07/30/19 04:31 Urine Mucus Rare /hpf (None) H 07/30/19 04:31 Urine Opiates Screen Not Detected (NotDetected) 07/30/19 04:31 Ur Oxycodone Screen Not Detected (NotDetected) 07/30/19 04:31 Urine Methadone Screen Not Detected (NotDetected) 07/30/19 04:31 Ur Propoxyphene Screen Not Detected (NotDetected) 07/30/19 04:31 Ur Barbiturates Screen Not Detected (NotDetected) 07/30/19 04:31 U Tricyclic Antidepress Not Detected (NotDetected) 07/30/19 04:31 Ur Phencyclidine Scrn Not Detected (NotDetected) 07/30/19 04:31 Ur Amphetamines Screen Not Detected (NotDetected) 07/30/19 04:31 U Methamphetamines Scrn Not Detected (NotDetected) 07/30/19 04:31 U Benzodiazepines Scrn Not Detected (NotDetected) 07/30/19 04:31 Urine Cocaine Screen Not Detected (NotDetected) 07/30/19 04:31 U Marijuana (THC) Screen Not Detected (NotDetected) 07/30/19 04:31 Vital Signs Temp 98.1 F 08/19/19 05:55 Pulse 97 08/19/19 05:55 Resp 18 08/19/19 05:55 BP 130/75 08/19/19 05:55 Pulse Ox 95 07/30/19 13:22 Patient Condition at Discharge: Stable Plan - Discharge Summary New Discharge Prescriptions: New Torsemide [Demadex] 20 mg PO DAILY #14 tab Divalproex ER [Depakote ER] 500 mg PO BID #28 tab.er.24h Sennosides [Senokot] 8.6 mg PO BID PRN #28 tab PRN Reason: Constipation Levothyroxine Sodium [Synthroid] 150 mcg PO DAILY@0630 #28 tab Albuterol Inhaler [Ventolin Hfa Inhaler] 2 puff INHALATION RT-QID PRN #1 puff PRN Reason: Shortness Of Breath Or Wheezing Continue Atorvastatin [Lipitor] 40 mg PO HS Aspirin EC [Ecotrin Low Dose] 81 mg PO DAILY metFORMIN HCL 1,000 mg PO BID #28 tab Discontinued Levothyroxine Sodium [Synthroid] 75 mcg PO DAILY Discharge Medication List Aspirin EC [Ecotrin Low Dose] 81 mg PO DAILY 07/30/19 [History] Atorvastatin [Lipitor] 40 mg PO HS 07/30/19 [History] Albuterol Inhaler [Ventolin Hfa Inhaler] 2 puff INHALATION RT-QID PRN #1 puff 08/19/19 [Rx] Divalproex ER [Depakote ER] 500 mg PO BID #28 tab.er.24h 08/19/19 [Rx] Levothyroxine Sodium [Synthroid] 150 mcg PO DAILY@0630 #28 tab 08/19/19 [Rx] Sennosides [Senokot] 8.6 mg PO BID PRN #28 tab 08/19/19 [Rx] Torsemide [Demadex] 20 mg PO DAILY #14 tab 08/19/19 [Rx] metFORMIN HCL 1,000 mg PO BID #28 tab 08/19/19 [Rx] Follow up Appointment(s)/Referral(s): None,Stated [Primary Care Provider] - 1-[address] [facility] - 1-2 Days Activity/Diet/Wound Care/Special Instructions: Activity: [] Diet: [] Wound Care: [] Special Instructions: Please make appointment with PCP for Echocardiogram Repeat TSH in 4 weeks with PCP Plan for levothyrxine 150 mcg daily on discharge Discharge Disposition: HOME SELF-CARE
[2019-08-20] MEDS ORDERED: LEVOTHYROXINE 75 MCG TAB PO SCH (06:30)
== END 2019-08-19 15:05 | disposition home or self-care (01) | DRG 885 ==
LOC: EC 02:15 → 3MHU 13:10
PROVIDERS: ADMIT Psychiatry & Neurology Psychiatry; ATTEND Psychiatry & Neurology Psychiatry
DX: F25.0 Schizoaffective disorder, bipolar type (principal); Z68.43 Body mass index [BMI] 50.0-59.9, adult; E03.9 Hypothyroidism, unspecified; E11.9 Type 2 diabetes mellitus without complications; E66.01 Morbid (severe) obesity due to excess calories; E78.5 Hyperlipidemia, unspecified; F17.210 Nicotine dependence, cigarettes, uncomplicated; I25.10 Atherosclerotic heart disease of native coronary artery without angina pectoris; W19.XXXA Unspecified fall, initial encounter; M79.642 Pain in left hand; M79.605 Pain in left leg; Z59.0 Homelessness; Z63.9 Problem related to primary support group, unspecified; Z79.82 Long term (current) use of aspirin; Z79.890 Hormone replacement therapy; Z79.899 Other long term (current) drug therapy; Z91.14 Patient's other noncompliance with medication regimen; Z79.84 Long term (current) use of oral hypoglycemic drugs; Z95.5 Presence of coronary angioplasty implant and graft
CPT/HCPCS: 36415; 80048; 80053; 80306; 81001; 82075; 83036; 83735; 84439; 84443; 85025; 99285

== ENCOUNTER 2019-08-30 11:12 | Emergency (ER) | payer MEDICARE, OTHER ==
[2019-08-30] MEDS ORDERED: DIPH,PERTUS(ACELL)TETVAC-LF 0.5 ML VIAL IM ONE (11:26)
[2019-08-30 11:27] VITALS: TEMP 98.7
[2019-08-30] MEDS ORDERED: TOPICAL SKIN ADHESIVE 1 EACH AMP TOPICAL ONE (11:42)
--- NOTE | 2019-08-30 11:42 | ED ---
General Adult HPI - General Chief complaint: Fall Stated complaint: Mental Health Time Seen by Provider: 08/30/19 11:19 Source: patient, RN notes reviewed Mode of arrival: EMS Limitations: no limitations - History of Present Illness Initial comments: 59-year-old male with a past medical history of CAD, chest pain, diabetes myelitis, hypertension, bipolar disorder presents to the emergency department for a chief complain of fall. Patient states he was at [place] [employer] [place] to get some time away from his family when he tripped in his hotel room and fell and hit his head. No loss consciousness. Patient does not take any blood thinners. Patient has grandiose thinking and run-on sentences. Denies any thoughts of harming himself. Denies any suicidal thoughts. Patient has no other complaints at this time including shortness of breath, chest pain, abdominal pain, nausea or vomiting, headache, or visual changes. - Related Data Home Medications Medication Instructions Recorded Confirmed Aspirin EC [Ecotrin Low Dose] 81 mg PO DAILY 07/30/19 08/30/19 Atorvastatin [Lipitor] 40 mg PO HS 07/30/19 08/30/19 Previous Rx's Medication Instructions Recorded Albuterol Inhaler [Ventolin Hfa 2 puff INHALATION RT-QID PRN #1 08/19/19 Inhaler] puff Divalproex ER [Depakote ER] 500 mg PO BID #28 tab.er.24h 08/19/19 Levothyroxine Sodium [Synthroid] 150 mcg PO DAILY@0630 #28 tab 08/19/19 Sennosides [Senokot] 8.6 mg PO BID PRN #28 tab 08/19/19 Torsemide [Demadex] 20 mg PO DAILY #14 tab 08/19/19 metFORMIN HCL 1,000 mg PO BID #28 tab 08/19/19 Levofloxacin [Levaquin] 750 mg PO DAILY #5 tab 08/30/19 Allergies Allergy/AdvReac Type Severity Reaction Status Date / Time No Known Allergies Allergy Verified 08/30/19 11:37 Review of Systems ROS Statement: Those systems with pertinent positive or pertinent negative responses have been documented in the HPI. ROS Other: All systems not noted in ROS Statement are negative. Past Medical History Past Medical History: Coronary Artery Disease (CAD), Chest Pain / Angina, Diabe ivana Mellitus, Hypertension, Thyroid Disorder Additional Past Medical History / Comment(s): hernia bipolar History of Any Multi-Drug Resistant Organisms: None Reported Past Surgical History: Coronary Bypass/CABG, Orthopedic Surgery Past Psychological History: No Psychological Hx Reported Smoking Status: Current every day smoker Past Alcohol Use History: None Reported Past Drug Use History: None Reported General Exam Limitations: no limitations General appearance: alert, in no apparent distress Head exam: Present: atraumatic, normocephalic, normal inspection, other (superficial laceration to forehead) Eye exam: Present: normal appearance, PERRL, EOMI. Absent: scleral icterus, conjunctival injection, periorbital swelling ENT exam: Present: normal exam, mucous membranes moist Neck exam: Present: normal inspection, full ROM. Absent: tenderness, meni ngismus, lymphadenopathy Respiratory exam: Present: normal lung sounds bilaterally. Absent: respiratory distress, wheezes, rales, rhonchi, stridor Cardiovascular Exam: Present: regular rate, normal rhythm, normal heart sounds. Absent: systolic murmur, diastolic murmur, rubs, gallop, clicks Neurological exam: Present: alert Psychiatric exam: Present: normal affect, normal mood Course Vital Signs 08/30/19 08/30/19 11:18 14:46 Temperature 98.7 F Pulse Rate 96 62 Respiratory 20 22 Rate Blood Pressure 142/91 115/88 O2 Sat by Pulse 92 L 95 Oximetry Procedures - Laceration Laceration #1 Consent Obtained: verbal consent Indication: laceration Site: face Size (cm): 3 Description: linear (superficial) Type of Sutures: other (glue) Patient Tolerated Procedure: well, no complications Medical Decision Making - Medical Decision Making 59-year-old male with a past medical history of CAD, chest pain, diabetes mellitus, hypertension, bipolar disorder presents for chief complaint of fall. Patient was at the [facility] [place] at some time away from his family. States that he was in the hotel room and went to walk towards the microwave and "tripped over my own feet" falling and hitting his head. No loss of consciousness. No blood thinners on board. Fall was purely mechanical. No suicidal thoughts or thoughts of harming anyone else. He does have grandiose thinking and run-on sentences. On presentation vitals are stable. O2 satur ation documented at 92% however when I'm in the room it is always a 95%. CBC was obtained which was normal. No leukocytosis. CMP unremarkable. Anion gap is normal. Troponin is negative. CT cervical spine was obtained which showed no acute osseous lesion, degenerative changes with a small right-sided pleural effusion. CT cervical spine showed no acute intracranial abnormality. Patient was also complaining of leg swelling he states has been ongoing for a very long time. Patient takes a diuretic at home. X-ray was obtained which shows interstitial pattern with basilar consolidation and small right pleural effusion. Findings most typical of CHF however underlying pneumonia not exclude d. BNP was low at 115. Dr. Arce and I reviewed the film. At this time we believe it is more consistent with a pneumonia with his clinical history. He will be treated with Levaquin and was given dose here in the emergency department. Patient was also evaluated by EPS for this grandiose behavior and at this time will be discharged home. He is currently staying at his brother's house. He will return if he has any other worsening symptoms. - Lab Data Result diagrams: 08/30/19 12:08 08/30/19 12:08 Lab Results 08/30/19 08/30/19 08/30/19 Range/Units 12:08 12:08 12:08 WBC 9.5 (3.8-10.6) k/uL RBC 4.15 L (4.30-5.90) m/uL Hgb 12.8 L (13.0-17.5) gm/dL Hct 37.0 L (39.0-53.0) % MCV 89.0 (80.0-100.0) fL MCH 30.7 (25.0-35.0) pg MCHC 34.5 (31.0-37.0) g/dL RDW 13.9 (11.5-15.5) % Plt Count 264 (150-450) k/uL Neutrophils % 70 % Lymphocytes % 16 % Monocytes % 8 % Eosinophils % 4 % Basophils % 2 % Neutrophils # 6.7 (1.3-7.7) k/uL Lymphocytes # 1.5 (1.0-4.8) k/uL Monocytes # 0.7 (0-1.0) k/uL Eosinophils # 0.4 (0-0.7) k/uL Basophils # 0.2 (0-0.2) k/uL PT (9.0-12.0) sec INR (<1.2) APTT (22.0-30.0) sec Sodium 134 L (137-145) mmol/L Potassium 4.3 (3.5-5.1) mmol/L Chloride 94 L (98-107) mmol/L Carbon Dioxide 33 H (22-30) mmol/L Anion Gap 7 mmol/L BUN 17 (9-20) mg/dL Creatinine 0.82 (0.66-1.25) mg/dL Est GFR (CKD-EPI)AfAm >90 (>60 ml/min/1.73 sqM) Est GFR (CKD-EPI)NonAf >90 (>60 ml/min/1.73 sqM) Glucose 195 H (74-99) mg/dL Calcium 8.8 (8.4-10.2) mg/dL Total Bilirubin 0.2 (0.2-1.3) mg/dL AST 23 (17-59) U/L ALT 24 (21-72) U/L Alkaline Phosphatase 35 L (38-126) U/L Troponin I (0.000-0.034) ng/mL NT-Pro-B Natriuret Pep 115 pg/mL Total Protein 6.0 L (6.3-8.2) g/dL Albumin 3.5 (3.5-5.0) g/dL Urine Opiates Screen (NotDetected) Ur Oxycodone Screen (NotDetected) Urine Methadone Screen (NotDetected) Ur Propoxyphene Screen (NotDetected) Ur Barbiturates Screen (NotDetected) U Tricyclic Antidepress (NotDetected) Ur Phencyclidine Scrn (NotDetected) Ur Amphetamines Screen (NotDetected) U Methamphetamines Scrn (NotDetected) U Benzodiazepines Scrn (NotDetected) Urine Cocaine Screen (NotDetected) U Marijuana (THC) Screen (NotDetected) 08/30/19 08/30/19 08/30/19 Range/Units 12:08 12:08 15:30 WBC (3.8-10.6) k/uL RBC (4.30-5.90) m/uL Hgb (13.0-17.5) gm/dL Hct (39.0-53.0) % MCV (80.0-100.0) fL MCH (25.0-35.0) pg MCHC (31.0-37.0) g/dL RDW (11.5-15.5) % Plt Count (150-450) k/uL Neutrophils % % Lymphocytes % % Monocytes % % Eosinophils % % Basophils % % Neutrophils # (1.3-7.7) k/uL Lymphocytes # (1.0-4.8) k/uL Monocytes # (0-1.0) k/uL Eosinophils # (0-0.7) k/uL Basophils # (0-0.2) k/uL PT 9.9 (9.0-12.0) sec INR 0.9 (<1.2) APTT 24.2 (22.0-30.0) sec Sodium (137-145) mmol/L Potassium (3.5-5.1) mmol/L Chloride (98-107) mmol/L Carbon Dioxide (22-30) mmol/L Anion Gap mmol/L BUN (9-20) mg/dL Creatinine (0.66-1.25) mg/dL Est GFR (CKD-EPI)AfAm (>60 ml/min/1.73 sqM) Est GFR (CKD-EPI)NonAf (>60 ml/min/1.73 sqM) Glucose (74-99) mg/dL Calcium (8.4-10.2) mg/dL Total Bilirubin (0.2-1.3) mg/dL AST (17-59) U/L ALT (21-72) U/L Alkaline Phosphatase (38-126) U/L Troponin I <0.012 (0.000-0.034) ng/mL NT-Pro-B Natriuret Pep pg/mL Total Protein (6.3-8.2) g/dL Albumin (3.5-5.0) g/dL Urine Opiates Screen Not Detected (NotDetected) Ur Oxycodone Screen Not Detected (NotDetected) Urine Methadone Screen Not Detected (NotDetected) Ur Propoxyphene Screen Not Detected (NotDetected) Ur Barbiturates Screen Not Detected (NotDetected) U Tricyclic Antidepress Not Detected (NotDetected) Ur Phencyclidine Scrn Not Detected (NotDetected) Ur Amphetamines Screen Not Detected (NotDetected) U Methamphetamines Scrn Not Detected (NotDetected) U Benzodiazepines Scrn Not Detected (NotDetected) Urine Cocaine Screen Not Detected (NotDetected) U Marijuana (THC) Screen Not Detected (NotDetected) Disposition Clinical Impression: Pneumonia, Fall Disposition: HOME SELF-CARE Condition: Good Instructions (If sedation given, give patient instructions): Pneumonia (ED) Additional Instructions: Please take antibiotic as directed. Take this starting tomorrow. Follow-up with primary care in 1-2 days. Return to the emergency department if you have any worsening symptoms. Prescriptions: Levofloxacin [Levaquin] 750 mg PO DAILY #5 tab Is patient prescribed a controlled substance at d/c from ED?: No Referrals: Nia Anand MD [REFERRING] [facility] - 1-2 days Time of Disposition: 16:36
[2019-08-30 12:31] LABS: Basophils # (A) 0.2 k/uL (0-0.2); Basophils % (A) 2 %; Eosinophils # (A) 0.4 k/uL (0-0.7); Eosinophils % (A) 4 %; HGB 12.8 gm/dL (13.0-17.5); Lymphocytes # (A) 1.5 k/uL (1.0-4.8); Lymphocytes % (A) 16 %; MCH 30.7 pg (25.0-35.0); MCHC 34.5 g/dL (31.0-37.0); Mean Platelet Volume 6.3; Monocytes # (A) 0.7 k/uL (0-1.0); Monocytes % (A) 8 %; Neutrophils # (A) 6.7 k/uL (1.3-7.7); Neutrophils % (A) 70 %; Platelet Count 264 k/uL (150-450); RBC 4.15 m/uL (4.30-5.90); RDW 13.9 % (11.5-15.5); WBC 9.5 k/uL (3.8-10.6)
[2019-08-30 12:41] LABS: ALT 24 U/L (21-72); AST 23 U/L (17-59); African American GFR (CKD) >90 (>60 ml/min/1.73 sqM); Albumin 3.5 g/dL (3.5-5.0); Alkaline Phosphatase 35 U/L (38-126); Anion Gap 7 mmol/L; Blood Urea Nitrogen 17 mg/dL (9-20); Calcium 8.8 mg/dL (8.4-10.2); Carbon Dioxide 33 mmol/L (22-30); Chloride 94 mmol/L (98-107); Glucose 195 mg/dL (74-99); INR 0.9 (<1.2); Partial Thromboplastin Time 24.2 sec (22.0-30.0); Potassium 4.3 mmol/L (3.5-5.1); Prothrombin Time 9.9 sec (9.0-12.0); Sodium 134 mmol/L (137-145); Total Bilirubin 0.2 mg/dL (0.2-1.3)
--- NOTE | 2019-08-30 14:05 | CT ---
EXAMINATION TYPE: CT brain george sosa DATE OF EXAM: 08/30/2019 COMPARISON: NONE HISTORY: fall, head injury CT DLP: 2104.3 mGycm Automated exposure control for dose reduction was used. TECHNIQUE: CT scan of the head and cervical spine are performed without contrast. FINDINGS: BRAIN: There are mild, generalized changes of sulcal prominence and ventriculomegaly, compatible with atrophic change. There is diffuse periventricular white matter lucency, compatible with chronic whit e matter ischemic change. There is no mass effect, midline shift or intracranial blood. There is mild mucoperiosteal thickening involving the maxillary sinuses bilaterally. The remainder th e paranasal sinuses are clear. The mastoid air cells are clear. The bony calvarium is intact. IMPRESSION: 1. NO ACUTE INTRACRANIAL ABNORMALITY. 2. MILD ATROPHIC AND ISCHEMIC CHANGE. 3. MILD, CHRONIC BILATERAL MAXILLARY SINUS MUCOSAL DISEASE CERVICAL SPINE: There is a large degree of breathing artifact present on the study. There is a small right-sided effusion. Prevertebral soft tissues are normal. There is a mild reversal of the normal cervical lordosis. Vertebral body height and alignment are shea ntained. Atlantoaxial relationships are normal. There is mild disc space loss and hypertrophic spondy losis at C6-7 and C7-T1 but also present at C5-6. There is mild uncovertebral joint disease present a t C5-6. The facets are reasonably well-maintained. IMPRESSION: 1. NO ACUTE OSSEOUS LESION. 2. DEGENERATIVE CHANGE. 3. SMALL RIGHT-SIDED PLEURAL EFFUSION.
--- NOTE | 2019-08-30 14:32 | XR ---
EXAMINATION TYPE: XR chest 2V DATE OF EXAM: 08/30/2019 COMPARISON: NONE TECHNIQUE: PA and lateral views submitted. HISTORY: Shortness of breath FINDINGS: Diffuse interstitial pattern with basilar consolidation and small right pleural effusion. Hypertrophi c and degenerative change of the spine. IMPRESSION: 1. Findings are most typical of CHF. Underlying pneumonia not excluded.
[2019-08-30 14:47] VITALS: BP 115/88; PULSE 62; RESP 22
[2019-08-30] MEDS ORDERED: LEVOFLOXACIN 750MG-D5W PMX 750 MG in DEXTROSE/WATER 1 150ML.BAG IVPB STA (14:57)
[2019-08-30 16:09] LABS: Amphetamine Screen,Urine Not Detected (NotDetected); Barbiturate Screen,Urine Not Detected (NotDetected); Benzodiazepines Screen,Urine Not Detected (NotDetected); Cocaine Screen,Urine Not Detected (NotDetected); Methadone Screen, Urine Not Detected (NotDetected); Opiate Screen,Urine Not Detected (NotDetected); Oxycodone Screen, Urine Not Detected (NotDetected); Phencyclidine Screen,Urine Not Detected (NotDetected); Tricyclic Antidepressant,Urine Not Detected (NotDetected); Urn Cannabinoid Scrn Not Detected (NotDetected)
== END 2019-08-30 19:06 | disposition home or self-care (01) ==
LOC: EC 11:12
DX: J18.9 Pneumonia, unspecified organism (principal); S01.81XA Laceration without foreign body of other part of head, initial encounter; J90 Pleural effusion, not elsewhere classified; M79.89 Other specified soft tissue disorders; F31.9 Bipolar disorder, unspecified; E11.9 Type 2 diabetes mellitus without complications; I11.0 Hypertensive heart disease with heart failure; I50.9 Heart failure, unspecified; I25.10 Atherosclerotic heart disease of native coronary artery without angina pectoris; F17.200 Nicotine dependence, unspecified, uncomplicated; Z79.82 Long term (current) use of aspirin; Z79.899 Other long term (current) drug therapy; Z23 Encounter for immunization; Z95.1 Presence of aortocoronary bypass graft; W01.10XA Fall on same level from slipping, tripping and stumbling with subsequent striking against unspecified object, initial encounter; Y93.01 Activity, walking, marching and hiking; Y92.59 Other trade areas as the place of occurrence of the external cause
CPT/HCPCS: 99285; 96365; 90471; 12013; 82075; 36415; 83880; 80053; 84484; 85025; 85610; 85730; 87040; 80306; 71046; 72125; 70450; 90715; J1956

== ENCOUNTER 2019-10-02 09:40 | Emergency (ER) | payer MEDICARE, OTHER ==
[2019-10-02 09:54] VITALS: TEMP 98
--- NOTE | 2019-10-02 10:15 | ED ---
Lower Extremity Injury HPI - General Chief Complaint: Extremity Injury, Lower Stated Complaint: Fall Time Seen by Provider: 10/02/19 10:00 Source: patient Mode of arrival: wheelchair Limitations: no limitations - History of Present Illness Initial Comments: Patient is a 59-year-old male, past medical history of CAD, diabetes, hypertension, thyroid disorder, bipolar, presenting to emergency Department with complaints of left leg and knee pain after falling yesterday. Patient states he was in his flip flops on his deck last night and slipped from the rain and ended up falling onto his butt. Patient states his left knee twisted and he is having some pain in the back side of his left knee as well as into his lower leg. Patient states he is able to ambulate some. Patient has chronic lower leg edema. Patient has no other complaints of pain secondary to his fall. Patient denies fever, chills, hitting his head. Patient has no other complaints at this time. Upon arrival to the ER, vital signs are stable. - Related Data Home Medications Medication Instructions Recorded Confirmed Aspirin EC [Ecotrin Low Dose] 81 mg PO DAILY 07/30/19 08/30/19 Atorvastatin [Lipitor] 40 mg PO HS 07/30/19 08/30/19 Previous Rx's Medication Instructions Recorded Albuterol Inhaler [Ventolin Hfa 2 puff INHALATION RT-QID PRN #1 08/19/19 Inhaler] puff Divalproex ER [Depakote ER] 500 mg PO BID #28 tab.er.24h 08/19/19 Levothyroxine Sodium [Synthroid] 150 mcg PO DAILY@0630 #28 tab 08/19/19 Sennosides [Senokot] 8.6 mg PO BID PRN #28 tab 08/19/19 Torsemide [Demadex] 20 mg PO DAILY #14 tab 08/19/19 metFORMIN HCL 1,000 mg PO BID #28 tab 08/19/19 Levofloxacin [Levaquin] 750 mg PO DAILY #5 tab 08/30/19 Allergies Allergy/AdvReac Type Severity Reaction Status Date / Time No Known Allergies Allergy Verified 10/02/19 09:50 Review of Systems ROS Statement: Those systems with pertinent positive or pertinent negative responses have been documented in the HPI. ROS Other: All systems not noted in ROS Statement are negative. Past Medical History Past Medical History: Coronary Artery Disease (CAD), Chest Pain / Angina, Diabetes Mellitus, Hypertension, Thyroid Disorder Additional Past Medical History / Comment(s): hernia bipolar History of Any Multi-Drug Resistant Organisms: None Reported Past Surgical History: Coronary Bypass/CABG, Orthopedic Surgery Past Psychological History: No Psychological Hx Reported Smoking Status: Current every day smoker Past Alcohol Use History: None Reported Past Drug Use History: None Reported General Exam - General Exam Comments Initial Comments: GENERAL: Disheveled appearance, obese, in no acute distress. HEAD: Atraumatic, normocephalic. EYES: Pupils equal round and reactive to light, extraocular movements intact, sclera anicteric, conjunctiva are normal. ENT: Nares patent, oropharynx clear without exudates. Moist mucous membranes. NECK: Normal range of motion, supple without lymphadenopathy or JVD. LUNGS: Breath sounds clear to auscultation bilaterally and equal. No wheezes rales or rhonchi. HEART: Regular rate and rhythm without murmurs, rubs or gallops. ABDOMEN: Soft, nontender, normoactive bowel sounds. EXTREMITIES: Pain with palpation of the anterior and posterior aspect of the left knee as well as proximal portion of lower leg. Patient has decreased flexion of the left knee. Patient has chronic lower leg edema. Neurovascular intact. PSYCH: Normal mood, normal affect. SKIN: Warm, Dry, normal turgor. Limitations: no limitations Course Vital Signs 10/02/19 09:50 Temperature 98 F Pulse Rate 92 Respiratory 18 Rate Blood Pressure 115/78 O2 Sat by Pulse 95 Oximetry Medical Decision Making - Medical Decision Making Patient is a 59-year-old male presenting with left knee and left lower leg pain after slipping in the rain yesterday. Patient denies any other injuries from the fall. X-ray reveals no acute fracture. Severe arthroplasty. There is fluid in the suprapatellar bursa. Patient is stable for discharge at this time. Patient will follow up with orthopedics within a week if symptoms persist. Patient will use ice, compression, elevation for symptomatic relief. Patient is in agreement with this plan of care. Return parameters were discussed with the patient and he verbalized understanding. Case discussed with Dr. Arce. Disposition Clinical Impression: Left knee pain, Fall Disposition: HOME SELF-CARE Condition: Stable Instructions (If sedation given, give patient instructions): Knee Pain (ED) Additional Instructions: Please return to the Emergency Department if symptoms worsen or any other concerns. Follow up with orthopedics if symptoms persist after one week. Use ice, elevation, compression on the knee. Is patient prescribed a controlled substance at d/c from ED?: No Referrals: Eriberto Rubio MD [Primary Care Provider] - 1-2 days Fatou Shelton DO [Doctor of Osteopathic Medicine] - 1-2 days
--- NOTE | 2019-10-02 10:43 | XR ---
EXAMINATION TYPE: XR knee complete LT DATE OF EXAM: 10/02/2019 COMPARISON: NONE HISTORY: Pain TECHNIQUE: Three views are submitted. FINDINGS: Severe narrowing the medial compartment knee joint with hypertrophic spurring. Diffuse osteopenia. Ma rked narrowing the patellofemoral joint with hypertrophic changes. Soft tissue ossifications patellar bursa. Small amount of fluids patellar bursa. Vascular calcification noted. IMPRESSION: 1. No acute fracture. 2. Severe arthropathy. 3. There is fluid in soft tissue ossification suprapatellar bursa. If there is concern for internal d erangement of knee correlate with MRI.
--- NOTE | 2019-10-02 10:44 | XR ---
EXAMINATION TYPE: XR tibia fibula LT DATE OF EXAM: 10/02/2019 COMPARISON: NONE HISTORY: Pain TECHNIQUE: Two views are submitted. FINDINGS: The osseous structures are intact. Arthropathy of the knee joint. Soft tissue edema noted. Calcaneal spurs noted. Vascular calcifications noted. Fluid in the suprapatellar bursa. Soft tissue Well-cortic ated ossification Noted in the region of the suprapatellar bursa. IMPRESSION: 1. No acute osseous abnormality. 2. Severe arthropathy of the knee joint.
[2019-10-02 11:20] VITALS: BP 132/79; PULSE 78; RESP 20
== END 2019-10-02 11:20 | disposition home or self-care (01) ==
LOC: EC 09:40
DX: M25.562 Pain in left knee (principal); R60.0 Localized edema; I25.119 Atherosclerotic heart disease of native coronary artery with unspecified angina pectoris; I10 Essential (primary) hypertension; E11.9 Type 2 diabetes mellitus without complications; F17.200 Nicotine dependence, unspecified, uncomplicated; Z79.82 Long term (current) use of aspirin; Z79.899 Other long term (current) drug therapy; Z95.1 Presence of aortocoronary bypass graft; W01.0XXA Fall on same level from slipping, tripping and stumbling without subsequent striking against object, initial encounter
CPT/HCPCS: 99283

== ENCOUNTER 2020-01-09 21:33 | Inpatient (IN) | payer MEDICARE, OTHER ==
[2020-01-09] MEDS ORDERED: methylPREDNISolone SOD SUCCI 125 MG/2 ML VIAL IV STA (22:07)
[2020-01-09] MEDS ORDERED: IPRATROPIUM-ALBUTEROL 3 ML NEB INHALATION STA (22:07)
[2020-01-09] MEDS ORDERED: SODIUM CHLORIDE 0.9% 1,000 ML IV SCH (22:15)
--- NOTE | 2020-01-09 22:15 | ED ---
SOB HPI - General Stated Complaint: Diff Breathing Time Seen by Provider: 01/09/20 21:59 - History of Present Illness Initial Comments: Dario Gallego) is a 59-year-old male with extensive past medical history, every day cigarette smoker a diagnosis of COPD which she admits he is not compliant with any medications and has no breathing treatments at home. Patient presents the emergency department today for evaluation of shortness breath and productive cough. Patient states he began feeling short of breath approximately a week ago, he states that over the past 4 days he's developed productive cough productive of green sputum. He denies any fevers or chills denies chest pain or palpitations. Hasn't been taking anything for this at home. - Related Data Home Medications Medication Instructions Recorded Confirmed RX: Aspirin EC [Ecotrin Low Dose] 81 mg PO DAILY 07/30/19 08/30/19 RX: Atorvastatin [Lipitor] 40 mg PO HS 07/30/19 08/30/19 Previous Rx's Medication Instructions Recorded RX: Albuterol Inhaler [Ventolin 2 puff INHALATION RT-QID PRN #1 08/19/19 Hfa Inhaler] puff RX: Divalproex ER [Depakote ER] 500 mg PO BID #28 tab.er.24h 08/19/19 RX: Levothyroxine Sodium 150 mcg PO DAILY@0630 #28 tab 08/19/19 [Synthroid] RX: Sennosides [Senokot] 8.6 mg PO BID PRN #28 tab 08/19/19 RX: Torsemide [Demadex] 20 mg PO DAILY #14 tab 08/19/19 RX: metFORMIN HCL 1,000 mg PO BID #28 tab 08/19/19 Levofloxacin [Levaquin] 750 mg PO DAILY #5 tab 08/30/19 Allergies Allergy/AdvReac Type Severity Reaction Status Date / Time No Known Allergies Allergy Verified 01/09/20 22:17 Review of Systems ROS Statement: Those systems with pertinent positive or pertinent negative responses have been documented in the HPI. ROS Other: All systems not noted in ROS Statement are negative. Past Medical History Past Medical History: Coronary Artery Disease (CAD), Chest Pain / Angina, Diabetes Mellitus, Hypertension, Thyroid Disorder Additional Past Medical History / Comment(s): hernia bipolar History of Any Multi-Drug Resistant Organisms: None Reported Past Surgical History: Coronary Bypass/CABG, Orthopedic Surgery Past Psychological History: No Psychological Hx Reported Smoking Status: Current every day smoker Past Alcohol Use History: None Reported Past Drug Use History: None Reported General Exam - General Exam Comments Initial Comments: Physical Exam GENERAL: Unkempt appearance HENT: Normocephalic, Atraumatic. EYES: PERRL, EOMI PULMONARY: Expiratory wheezing in all lung hung more pronounced on the right than the left CARDIOVASCULAR: There is a regular rate and rhythm without any murmurs gallops or rubs. ABDOMEN: Soft and nontender with normal bowel sounds. SKIN: Skin is clear with no lesions or rashes and otherwise unremarkable. : Deferred NEUROLOGIC: Patient is alert and oriented x3. Moving all extremities spontaneously MUSCULOSKELETAL: Normal extremities with adequate strength and full range of motion. No lower extremity swelling or edema. No calf tenderness. PSYCHIATRIC: Normal psychiatric evaluation. Course Vital Signs 01/09/20 01/09/20 01/09/20 22:13 23:32 23:45 Temperature 98.1 F Pulse Rate 94 92 89 Respiratory 18 Rate Blood Pressure 120/66 O2 Sat by Pulse 91 L Oximetry 01/10/20 01/10/20 01/10/20 00:02 00:03 01:54 Temperature Pulse Rate 92 64 Respiratory 22 16 Rate Blood Pressure 113/62 137/89 O2 Sat by Pulse 91 L 95 90 L Oximetry 01/10/20 02:36 Temperature Pulse Rate Respiratory Rate Blood Pressure O2 Sat by Pulse 94 L Oximetry Medical Decision Making - Medical Decision Making Patient was seen and evaluated history is obtained from patient this is a morbidly obese 59-year-old male with COPD still every day cigarette smoker he is been noncompliant with his medications questionable compliance with his CPAP. Patient is brought in today for shortness of breath. On evaluation patient is wheezing but not hypoxic initially. Full workup will be initiated as the patient reports subjective fevers and productive cough concerning for pneumonia. Chest x-ray is concerning for pneumonia. Patient seems to have increased work of breathing therefore BiPAP was initiated. Patient resting comfortably with BiPAP. The patient will be admitted for the acquired pneumonia, COPD exacerbation, hypoxia. Antibiotics were ordered. Patient resting comfortably on BiPAP. 4 hour breathing treatments will be ordered. - Lab Data Result diagrams: 01/09/20 22:54 01/09/20 22:54 Lab Results 01/09/20 01/09/2020 Range/Units 22:54 22:54 22:54 WBC 11.4 H (3.8-10.6) k/uL RBC 5.17 (4.30-5.90) m/uL Hgb 14.6 (13.0-17.5) gm/dL Hct 46.8 (39.0-53.0) % MCV 90.5 (80.0-100.0) fL MCH 28.2 (25.0-35.0) pg MCHC 31.1 (31.0-37.0) g/dL RDW 15.9 H (11.5-15.5) % Plt Count 256 (150-450) k/uL Neutrophils % 69 % Lymphocytes % 19 % Monocytes % 6 % Eosinophils % 2 % Basophils % 1 % Neutrophils # 7.9 H (1.3-7.7) k/uL Lymphocytes # 2.2 (1.0-4.8) k/uL Monocytes # 0.7 (0-1.0) k/uL Eosinophils # 0.3 (0-0.7) k/uL Basophils # 0.1 (0-0.2) k/uL Poikilocytosis Slight PT (9.0-12.0) sec INR (<1.2) APTT (22.0-30.0) sec Sodium 127 L (137-145) mmol/L Potassium 5.1 (3.5-5.1) mmol/L Chloride 85 L (98-107) mmol/L Carbon Dioxide 37 H (22-30) mmol/L Anion Gap 5 mmol/L BUN 26 H (9-20) mg/dL Creatinine 1.02 (0.66-1.25) mg/dL Est GFR (CKD-EPI)AfAm >90 (>60 ml/min/1.73 sqM) Est GFR (CKD-EPI)NonAf 79 (>60 ml/min/1.73 sqM) Glucose 116 H (74-99) mg/dL Plasma Lactic Acid Tani 0.8 (0.7-2.0) mmol/L Calcium 8.4 (8.4-10.2) mg/dL Total Bilirubin 0.4 (0.2-1.3) mg/dL AST 29 (17-59) U/L ALT 17 (4-49) U/L Alkaline Phosphatase 38 (38-126) U/L Troponin I (0.000-0.034) ng/mL C-Reactive Protein (<10.0) mg/L NT-Pro-B Natriuret Pep pg/mL Total Protein 6.4 (6.3-8.2) g/dL Albumin 3.6 (3.5-5.0) g/dL Influenza Type A RNA (Not Detectd) Influenza Type B (PCR) (Not Detectd) 01/09/20 01/09/20 01/09/20 Range/Units 22:54 22:54 22:54 WBC (3.8-10.6) k/uL RBC (4.30-5.90) m/uL Hgb (13.0-17.5) gm/dL Hct (39.0-53.0) % MCV (80.0-100.0) fL MCH (25.0-35.0) pg MCHC (31.0-37.0) g/dL RDW (11.5-15.5) % Plt Count (150-450) k/uL Neutrophils % % Lymphocytes % % Monocytes % % Eosinophils % % Basophils % % Neutrophils # (1.3-7.7) k/uL Lymphocytes # (1.0-4.8) k/uL Monocytes # (0-1.0) k/uL Eosinophils # (0-0.7) k/uL Basophils # (0-0.2) k/uL Poikilocytosis PT 10.5 (9.0-12.0) sec INR 1.0 (<1.2) APTT 24.2 (22.0-30.0) sec Sodium (137-145) mmol/L Potassium (3.5-5.1) mmol/L Chloride (98-107) mmol/L Carbon Dioxide (22-30) mmol/L Anion Gap mmol/L BUN (9-20) mg/dL Creatinine (0.66-1.25) mg/dL Est GFR (CKD-EPI)AfAm (>60 ml/min/1.73 sqM) Est GFR (CKD-EPI)NonAf (>60 ml/min/1.73 sqM) Glucose (74-99) mg/dL Plasma Lactic Acid Tani (0.7-2.0) mmol/L Calcium (8.4-10.2) mg/dL Total Bilirubin (0.2-1.3) mg/dL AST (17-59) U/L ALT (4-49) U/L Alkaline Phosphatase (38-126) U/L Troponin I <0.012 (0.000-0.034) ng/mL C-Reactive Protein (<10.0) mg/L NT-Pro-B Natriuret Pep pg/mL Total Protein (6.3-8.2) g/dL Albumin (3.5-5.0) g/dL Influenza Type A RNA Not Detected (Not Detectd) Influenza Type B (PCR) Not Detected (Not Detectd) 01/09/20 01/10/20 Range/Units 22:54 00:20 WBC (3.8-10.6) k/uL RBC (4.30-5.90) m/uL Hgb (13.0-17.5) gm/dL Hct (39.0-53.0) % MCV (80.0-100.0) fL MCH (25.0-35.0) pg MCHC (31.0-37.0) g/dL RDW (11.5-15.5) % Plt Count (150-450) k/uL Neutrophils % % Lymphocytes % % Monocytes % % Eosinophils % % Basophils % % Neutrophils # (1.3-7.7) k/uL Lymphocytes # (1.0-4.8) k/uL Monocytes # (0-1.0) k/uL Eosinophils # (0-0.7) k/uL Basophils # (0-0.2) k/uL Poikilocytosis PT (9.0-12.0) sec INR (<1.2) APTT (22.0-30.0) sec Sodium (137-145) mmol/L Potassium (3.5-5.1) mmol/L Chloride (98-107) mmol/L Carbon Dioxide (22-30) mmol/L Anion Gap mmol/L BUN (9-20) mg/dL Creatinine (0.66-1.25) mg/dL Est GFR (CKD-EPI)AfAm (>60 ml/min/1.73 sqM) Est GFR (CKD-EPI)NonAf (>60 ml/min/1.73 sqM) Glucose (74-99) mg/dL Plasma Lactic Acid Tani (0.7-2.0) mmol/L Calcium (8.4-10.2) mg/dL Total Bilirubin (0.2-1.3) mg/dL AST (17-59) U/L ALT (4-49) U/L Alkaline Phosphatase (38-126) U/L Troponin I (0.000-0.034) ng/mL C-Reactive Protein 13.6 H (<10.0) mg/L NT-Pro-B Natriuret Pep 429 pg/mL Total Protein (6.3-8.2) g/dL Albumin (3.5-5.0) g/dL Influenza Type A RNA (Not Detectd) Influenza Type B (PCR) (Not Detectd) Disposition Clinical Impression: Nicotine dependence, Pneumonia, CPAP (continuous positive airway pressure) dependence, Morbid obesity, Schizoaffective disorder, bipolar type Disposition: ADMITTED IP TO THIS HOSP Condition: Serious Is patient prescribed a controlled substance at d/c from ED?: No
--- NOTE | 2020-01-09 22:46 | XR ---
EXAMINATION TYPE: XR chest 2V DATE OF EXAM: 01/09/2020 COMPARISON: 08/30/2019 HISTORY: Cough TECHNIQUE: FINDINGS: There is pulmonary vascular congestion. There is blunting of the right costophrenic angle. There is infiltrate right lower lobe. Bony thorax appears intact. IMPRESSION: There is moderate right pleural effusion increased compared to last exam. This could rela te to mild chronic congestive heart failure. Right lower lobe pneumonia not excluded.
[2020-01-09] MEDS: SODIUM CHLORIDE 0.9% 500 ML 500 ML IV SCH (22:59)
[2020-01-09 23:37] LABS: Basophils # (A) 0.1 k/uL (0-0.2); Basophils % (A) 1 %; Eosinophils # (A) 0.3 k/uL (0-0.7); Eosinophils % (A) 2 %; HCT 46.8 % (39.0-53.0); HGB 14.6 gm/dL (13.0-17.5); Lymphocytes # (A) 2.2 k/uL (1.0-4.8); Lymphocytes % (A) 19 %; MCH 28.2 pg (25.0-35.0); MCHC 31.1 g/dL (31.0-37.0); MCV 90.5 fL (80.0-100.0); Mean Platelet Volume 6.6; Monocytes # (A) 0.7 k/uL (0-1.0); Monocytes % (A) 6 %; Neutrophils # (A) 7.9 k/uL (1.3-7.7); Neutrophils % (A) 69 %; Platelet Count 256 k/uL (150-450); Poikilocytosis Slight; RBC 5.17 m/uL (4.30-5.90); RDW 15.9 % (11.5-15.5); WBC 11.4 k/uL (3.8-10.6)
[2020-01-09 23:54] LABS: ALT 17 U/L (4-49); AST 29 U/L (17-59); African American GFR (CKD) >90 (>60 ml/min/1.73 sqM); Albumin 3.6 g/dL (3.5-5.0); Alkaline Phosphatase 38 U/L (38-126); Anion Gap 5 mmol/L; Blood Urea Nitrogen 26 mg/dL (9-20); Calcium 8.4 mg/dL (8.4-10.2); Carbon Dioxide 37 mmol/L (22-30); Chloride 85 mmol/L (98-107); Glucose 116 mg/dL (74-99); Non-African American GFR(CKD) 79 (>60 ml/min/1.73 sqM); Potassium 5.1 mmol/L (3.5-5.1); Sodium 127 mmol/L (137-145); Total Bilirubin 0.4 mg/dL (0.2-1.3); Total Protein 6.4 g/dL (6.3-8.2)
[2020-01-10 00:12] LABS: Partial Thromboplastin Time 24.2 sec (22.0-30.0); Prothrombin Time 10.5 sec (9.0-12.0)
[2020-01-10] MEDS ORDERED: AZITHROMYCIN 500 MG in SODIUM CHLORIDE 0.9% 250 ML IVPB STA (00:39)
[2020-01-10] MEDS ORDERED: PNEUMONIA PROTOCOL UTILIZED 1 EACH MISC PO PRN (00:40)
[2020-01-10] MEDS ORDERED: NALOXONE 0.4 MG/ML 1 ML VIAL IV PRN (00:41)
[2020-01-10] MEDS ORDERED: AZITHROMYCIN 500 MG in SODIUM CHLORIDE 0.9% 250 ML IVPB ONE (04:00)
[2020-01-10] MEDS: IPRATROPIUM-ALBUTEROL 3 ML NEB INHALATION SCH ×6 (04:42→23:20)
[2020-01-10 07:26] LABS: Glucose,Whole Blood 183 mg/dL (75-99)
--- NOTE | 2020-01-10 07:33 | XR ---
EXAMINATION TYPE: XR chest 1V DATE OF EXAM: 01/10/2020 HISTORY: Pneumonia. REFERENCE: Previous study dated 01/09/2020. FINDINGS: The study is compromised by patient tremendous size. There is continuing right-sided infiltrate and a small effusion. Heart size upper limits of normal. T here is vascular congestion and interstitial change. IMPRESSION: 1. CONTINUING RIGHT BASILAR ATELECTASIS WITH CONCOMITANT EFFUSION. 2. SUPERIMPOSED CHANGES OF CONGESTIVE HEART FAILURE.
[2020-01-10 08:27] LABS: Basophils # (A) 0.2 k/uL (0-0.2); Basophils % (A) 2 %; Eosinophils # (A) 0.1 k/uL (0-0.7); Eosinophils % (A) 1 %; HCT 44.4 % (39.0-53.0); HGB 13.8 gm/dL (13.0-17.5); Hypochromasia Slight; Lymphocytes # (A) 0.6 k/uL (1.0-4.8); Lymphocytes % (A) 5 %; MCH 28.5 pg (25.0-35.0); MCV 91.9 fL (80.0-100.0); Mean Platelet Volume 6.6; Monocytes # (A) 0.1 k/uL (0-1.0); Monocytes % (A) 1 %; Neutrophils # (A) 9.8 k/uL (1.3-7.7); Neutrophils % (A) 90 %; Platelet Count 271 k/uL (150-450); Poikilocytosis Slight; RBC 4.83 m/uL (4.30-5.90); RDW 15.8 % (11.5-15.5); WBC 10.8 k/uL (3.8-10.6)
[2020-01-10 08:29] LABS: ABG Base Excess 12.5 mmol/L; ABG HCO3 38 mmol/L (21-25); ABG Oxygen Saturation 97.3 % (94-97); ABG PH 7.34 (7.35-7.45); ABG PO2 88 mmHg (83-108); ABG TCO2 41 mmol/L (19-24); Allen Test Performed? Yes
[2020-01-10 08:33] LABS: ABG PCO2 71 mmHg (35-45)
[2020-01-10 08:36] LABS: Albumin 3.5 g/dL (3.5-5.0); Calcium 8.3 mg/dL (8.4-10.2); Potassium 5.7 mmol/L (3.5-5.1); Total Bilirubin 0.4 mg/dL (0.2-1.3); Total Protein 6.4 g/dL (6.3-8.2)
[2020-01-10] MEDS: FUROSEMIDE 10 MG/ML 4 ML VIAL IV SCH ×2 (09:50→21:04)
[2020-01-10 12:17] LABS: Glucose,Whole Blood 149 mg/dL (75-99)
[2020-01-10] MEDS ORDERED: FLUTICASONE 50MCG/SPRAY NASAL 16GM EA NOSTRIL PRN (12:33)
[2020-01-10] MEDS: methylPREDNISolone SOD SUCCI 125 MG/2 ML VIAL IV SCH ×2 (13:11→17:35)
[2020-01-10] MEDS: LISINOPRIL 2.5 MG TAB PO SCH (13:11)
--- NOTE | 2020-01-10 14:18 | P.CNPUL ---
History of Present Illness Consult date: 01/10/20 Requesting physician: Austin Degroot Reason for consult: dyspnea Chief complaint: Shortness of breath, cough, congestion History of present illness: This is a 59-year-old gentleman residing in an adult foster care setting with visiting physicians. He has a history of coronary artery disease with previous stent stent placement, hypothyroidism, hypertension, schizophrenia, diabetes mellitus. He was brought into the emergency room yesterday with complaints of increasing shortness of breath, cough and congestion. Chest x-ray revealed right basilar atelectasis and can't commit knee effusion with changes of congestive heart failure with vascular congestion. White count 11.4. Hemoglobin 14.6. Sodium 127. Potassium 5.1. Creatinine 1.02. ProBNP 429. Influenza screen was negative. He was admitted to the regular medical floor and placed on BiPAP around midnight. Earlier this morning on dayshift staff found the patient quite obtunded. Arterial blood gases revealed a PaO2 of 88, pCO2 71 and a pH of 7.34 on 50% FiO2. He was given Lasix 40 mg IVP. He is seen today in consultation. He is currently awake and alert in no acute distress. He does have some confusion to time and place. He's been initiated on bronchodilators, IV Solu-Medrol, Zosyn, IV diuretics. He is to be transferred to the selective care unit for closer observation. Review of Systems REVIEW OF SYSTEMS: CONSTITUTIONAL: Denies any recent significant weight loss or weight gain. EYES: Denies change in vision. EARS, NOSE, MOUTH, THROAT: Denies headaches, denies sore throat. CARDIOVASCULAR: Denies chest pain, palpitations or syncopal episodes. RESPIRATORY: Positive for shortness of breath, cough, congestion no hemoptysis. GASTROINTESTINAL: Denies change in appetite, denies abdominal pain GENITOURINARY: Denies hematuria, denies infections. MUSKULOSKELETAL: Denies pain, denies swelling. INTEGUMENTARY: Denies rash, denies eczema. NEUROLOGICAL: Denies recent memory loss, no recent seizure activity. PSYCHIATRIC: Denies anxiety, denies depression. HEMATOLOGIC/LYMPHATIC: Denies anemia, denies enlarged lymph nodes. Past Medical History Past Medical History: Coronary Artery Disease (CAD), Chest Pain / Angina, COPD, Diabetes Mellitus, Hyperlipidemia, Hypertension, Pneumonia, Sleep Apnea/CPAP/BIPAP, Thyroid Disorder Additional Past Medical History / Comment(s): hernia bipolar, schizophrenia, History of Any Multi-Drug Resistant Organisms: None Reported Past Surgical History: Coronary Bypass/CABG, Orthopedic Surgery Past Psychological History: No Psychological Hx Reported Smoking Status: Current every day smoker Past Alcohol Use History: None Reported Past Drug Use History: None Reported - Past Family History Father Family Medical History: Dementia Mother Family Medical History: COPD Medications and Allergies Home Medications Medication Instructions Recorded Confirmed Type Aspirin EC [Ecotrin Low Dose] 81 mg PO DAILY@0800 07/30/19 01/10/20 History Atorvastatin [Lipitor] 40 mg PO HS 07/30/19 01/10/20 History Albuterol Inhaler [Ventolin Hfa 2 puff INHALATION RT-QID PRN #1 08/19/19 01/10/20 Rx Inhaler] puff metFORMIN HCL 1,000 mg PO BID #28 tab 08/19/19 01/10/20 Rx Allopurinol [Zyloprim] 100 mg PO BID@799,199901/10/20 01/10/20 History Divalproex ER [Depakote ER] 1,000 mg PO BID@00,199901/10/20 01/10/20 History Ergocalciferol (Vitamin D2) 50,000 unit PO MO 01/10/20 01/10/20 History [Vitamin D2] Fluticasone Nasal [place] [Flonase 2 spr EA NOSTRIL DAILY PRN 01/10/20 01/10/20 History Nasal [place]] Levothyroxine Sodium [Synthroid] 200 mcg PO DAILY 01/10/20 01/10/20 History Lisinopril [Zestril] 2.5 mg PO DAILY 01/10/20 01/10/20 History Paliperidone IM [Invega Sustenna] 234 mg IM QMONTH 01/10/20 01/10/20 History Torsemide [Demadex] 40 mg PO BID@0700,1600 01/10/20 01/10/20 History Allergies Allergy/AdvReac Type Severity Reaction Status Date / Time No Known Allergies Allergy Verified 01/10/20 09:23 Physical Exam Vitals: Vital Signs Temp Pulse Pulse Resp BP BP Pulse Ox 01/10/20 13:07 78 L 01/10/20 12:29 88 01/10/20 12:13 88 01/10/20 12:00 98.5 F 96 20 124/68 91 L 01/10/20 09:23 72 01/10/20 09:06 72 01/10/20 08:00 98.1 F 75 20 136/79 94 L 01/10/20 04:56 80 01/10/20 04:42 80 01/10/20 03:59 16 95 01/10/20 03:00 97.5 F L 84 20 130/65 94 L 01/10/20 02:36 94 L 01/10/20 01:54 64 16 137/89 90 L 01/10/20 00:03 95 01/10/20 00:02 92 22 113/62 91 L 01/09/20 23:45 89 01/09/20 23:32 92 01/09/20 22:13 98.1 F 94 18 120/66 91 L Intake and Output 01/09/20 01/10/20 01/10/20 22:59 06:59 14:59 Intake Total 0 Output Total 900 Balance 0 -900 Intake: Oral 0 Output: Urine 900 Other: Voiding Method Incontinent # Bowel Movements 0 Weight 158.757 kg 158.757 kg GENERAL EXAM: Alert, active, obese 59-year-old gentleman, on 4 L nasal cannula, comfortable in no apparent distress. HEAD: Normocephalic. EYES: Normal reaction of pupils, equal size. NOSE: Clear with pink turbinates. THROAT: No erythema or exudates. NECK: No masses, no JVD. CHEST: No chest wall deformity. LUNGS: Equal air entry with crackles in the bilateral posterior bases right greater than left CVS: S1 and S2 normal with no audible murmur, regular rhythm. ABDOMEN: No hepatosplenomegaly, normal bowel sounds, no guarding or rigidity. SPINE: No scoliosis or deformity SKIN: No rashes CENTRAL NERVOUS SYSTEM: No focal deficits, tone is normal in all 4 extremities. EXTREMITIES: There is no peripheral edema. No clubbing, no cyanosis. Peripheral pulses are intact. Results - Laboratory Findings CBC and BMP: 01/10/20 08:12 01/10/20 08:12 ABG ABG pH 7.34 (7.35-7.45) L 01/10/20 08:11 ABG pCO2 71 mmHg (35-45) H* 01/10/20 08:11 ABG pO2 88 mmHg (83-108) 01/10/20 08:11 ABG O2 Saturation 97.3 % (94-97) H 01/10/20 08:11 PT/INR, D-dimer PT 10.5 sec (9.0-12.0) 01/09/20 22:54 INR 1.0 (<1.2) 01/09/20 22:54 Abnormal lab findings: Abnormal Labs 01/09/20 01/09/20 01/09/20 22:54 22:54 22:54 WBC 11.4 H RDW 15.9 H Neutrophils # 7.9 H Lymphocytes # ABG pH ABG pCO2 ABG HCO3 ABG Total CO2 ABG O2 Saturation Sodium 127 L Potassium Chloride 85 L Carbon Dioxide 37 H BUN 26 H Glucose 116 H POC Glucose (mg/dL) Calcium Alkaline Phosphatase C-Reactive Protein 13.6 H 01/10/20 01/10/20 01/10/20 07:08 08:11 08:12 WBC 10.8 H RDW 15.8 H Neutrophils # 9.8 H Lymphocytes # 0.6 L ABG pH 7.34 L ABG pCO2 71 H* ABG HCO3 38 H ABG Total CO2 41 H ABG O2 Saturation 97.3 H Sodium Potassium Chloride Carbon Dioxide BUN Glucose POC Glucose (mg/dL) 183 H Calcium Alkaline Phosphatase C-Reactive Protein 01/10/20 01/10/20 08:12 11:44 WBC RDW Neutrophils # Lymphocytes # ABG pH ABG pCO2 ABG HCO3 ABG Total CO2 ABG O2 Saturation Sodium 130 L Potassium 5.7 H Chloride 87 L Carbon Dioxide 38 H BUN 23 H Glucose 173 H POC Glucose (mg/dL) 149 H Calcium 8.3 L Alkaline Phosphatase 36 L C-Reactive Protein - Diagnostic Findings Chest x-ray: image reviewed Assessment and Plan Assessment: 1 Acute hypoxic respiratory failure secondary to an acute exacerbation of suspected systolic versus diastolic congestive heart failure, acute exacerbation of chronic obstructive pulmonary disease 2 Acute hypercapnic respiratory failure secondary to above 3 Chronic and ongoing tobacco dependence 4 Coronary artery disease with previous stent placement 5 Hypertension 6 Hypothyroidism 7 Schizophrenia 8 Diabetes mellitus Plan: The patient was seen and evaluated by Dr. Lieberman. Chest x-ray and labs reviewed. We'll continue to utilize the BiPAP as needed. Continue oxygen at 4 L/m per nasal cannula. Continue DuoNeb inhalations, add [place] and Perforomist inhalations. Continue IV Solu-Medrol. Continue IV Zosyn. Continue IV diuretics. Obtain a echocardiogram. We will continue to follow and make furthe r recommendations based on his clinical status. I, the cosigning physician, performed a history & physical examination of the patient. Lungs sounds with basilar crackles right greater than left. Maintaining good O2 saturations in the 90s on 4 L/m per nasal cannula alternating with BiPAP. I discussed the assessment and plan of care with my nurse practitioner, Darcy Levy. I attest to the above note as dictated by her. Time with Patient: Greater than 30
[2020-01-10] MEDS: PIPERACILLIN-TAZOBACTAM 3.375 GM in SODIUM CHLORIDE 0.9% 100 ML IVPB SCH (16:27)
--- NOTE | 2020-01-10 16:49 | P.HPIM ---
History of Present Illness H&P Date: 01/10/20 Chief Complaint: Shortness of breath 59-year-old gentleman residing in an adult foster care setting with visiting physicians. He has a history of coronary artery disease with previous stent stent placement, hypothyroidism, hypertension, schizophrenia, diabetes mellitus. He was brought into the emergency room yesterday with complaints of increasing shortness of breath, cough and congestion. Chest x-ray revealed right basilar atelectasis and can't commit knee effusion with changes of congestive heart failure with vascular congestion. White count 11.4. Hemoglobin 14.6. Sodium 127. Potassium 5.1. Creatinine 1.02. ProBNP 429. Influenza screen was negative. He was admitted to the regular medical floor and placed on BiPAP around midnight. Earlier this morning on dayshift staff found the patient quite obtunded. Arterial blood gases revealed a PaO2 of 88, pCO2 71 and a pH of 7.34 on 50% FiO2. He was given Lasix 40 mg IVP. He is seen today in consultation. He is currently awake and alert in no acute distress. He does have some confusion to time and place. He's been initiated on bronchodilators, IV Solu- Medrol, Zosyn, IV diuretics. He is to be transferred to the selective care unit for closer observation. Review of Systems REVIEW OF SYSTEMS: CONSTITUTIONAL: No fever, no malaise, no fatigue. HEENT: No recent visual problems or hearing problems. Denied any sore throat. CARDIOVASCULAR: No chest pain, orthopnea, PND, no palpitations, no syncope. PULMONARY: No shortness of breath, no cough, no hemoptysis. GASTROINTESTINAL: No diarrhea, no nausea, no vomiting, no abdominal pain. NEUROLOGICAL: No headaches, no weakness, no numbness. HEMATOLOGICAL: Denies any bleeding or petechiae. GENITOURINARY: Denies any burning micturition, frequency, or urgency. MUSCULOSKELETAL/RHEUMATOLOGICAL: Denies any joint pain, swelling, or any muscle pain. ENDOCRINE: Denies any polyuria or polydipsia. The rest of the 14-point review of systems is negative. Past Medical History Past Medical History: Coronary Artery Disease (CAD), Chest Pain / Angina, COPD, Diabetes Mellitus, Hyperlipidemia, Hypertension, Pneumonia, Sleep Apnea/CPAP/BIPAP, Thyroid Disorder Additional Past Medical History / Comment(s): hernia bipolar, schizophrenia, History of Any Multi-Drug Resistant Organisms: None Reported Past Surgical History: Coronary Bypass/CABG, Orthopedic Surgery Past Psychological History: No Psychological Hx Reported Smoking Status: Current every day smoker Past Alcohol Use History: None Reported Past Drug Use History: None Reported - Past Family History Father History Unknown: Yes Mother History Unknown: Yes Medications and Allergies Home Medications Medication Instructions Recorded Confirmed Type Aspirin EC [Ecotrin Low Dose] 81 mg PO DAILY@0800 07/30/19 01/10/20 History Atorvastatin [Lipitor] 40 mg PO HS 07/30/19 01/10/20 History Albuterol Inhaler [Ventolin Hfa 2 puff INHALATION RT-QID PRN #1 08/19/19 01/10/20 Rx Inhaler] puff metFORMIN HCL 1,000 mg PO BID #28 tab 08/19/19 01/10/20 Rx Allopurinol [Zyloprim] 100 mg PO BID@08,199901/10/20 01/10/20 History Divalproex ER [Depakote ER] 1,000 mg PO BID@799,199901/10/20 01/10/20 History Ergocalciferol (Vitamin D2) 50,000 unit PO MO 01/10/20 01/10/20 History [Vitamin D2] Fluticasone Nasal [place] [Flonase 2 spr EA NOSTRIL DAILY PRN 01/10/20 01/10/20 History Nasal [place]] Levothyroxine Sodium [Synthroid] 200 mcg PO DAILY 01/10/20 01/10/20 History Lisinopril [Zestril] 2.5 mg PO DAILY 01/10/20 01/10/20 History Paliperidone IM [Invega Sustenna] 234 mg IM QMONTH 01/10/20 01/10/20 History Torsemide [Demadex] 40 mg PO BID@0700,1600 01/10/20 01/10/20 History Allergies Allergy/AdvReac Type Severity Reaction Status Date / Time No Known Allergies Allergy Verified 01/10/20 09:23 Physical Exam Vitals: Vital Signs Temp Pulse Pulse Resp BP BP Pulse Ox 01/10/20 09:23 72 01/10/20 09:06 72 01/10/20 08:00 98.1 F 75 20 136/79 94 L 01/10/20 04:56 80 01/10/20 04:42 80 01/10/20 03:59 16 95 01/10/20 03:00 97.5 F L 84 20 130/65 94 L 01/10/20 02:36 94 L 01/10/20 01:54 64 16 137/89 90 L 01/10/20 00:03 95 01/10/20 00:02 92 22 113/62 91 L 01/09/20 23:45 89 01/09/20 23:32 92 01/09/20 22:13 98.1 F 94 18 120/66 91 L Intake and Output 01/09/20 01/10/20 01/10/20 22:59 06:59 14:59 Intake Total 0 Balance 0 Intake: Oral 0 Other: Voiding Method Incontinent Weight 158.757 kg 158.757 kg GENERAL EXAM: Alert, active, obese 59-year-old gentleman, on 4 L nasal cannula, comfortable in no apparent distress. HEAD: Normocephalic. EYES: Normal reaction of pupils, equal size. NOSE: Clear with pink turbinates. THROAT: No erythema or exudates. NECK: No masses, no JVD. CHEST: No chest wall deformity. LUNGS: Equal air entry with crackles in the bilateral posterior bases right greater than left CVS: S1 and S2 normal with no audible murmur, regular rhythm. ABDOMEN: No hepatosplenomegaly, normal bowel sounds, no guarding or rigidity. SPINE: No scoliosis or deformity SKIN: No rashes CENTRAL NERVOUS SYSTEM: No focal deficits, tone is normal in all 4 extremities. EXTREMITIES: There is no peripheral edema. No clubbing, no cyanosis. Peripheral pulses are intact. Results CBC & Chem 7: 01/10/20 08:12 01/10/20 08:12 Labs: Abnormal Lab Results - Last 24 Hours (Table) 01/09/20 01/09/20 01/09/20 Range/Units 22:54 22:54 22:54 WBC 11.4 H (3.8-10.6) k/uL RDW 15.9 H (11.5-15.5) % Neutrophils # 7.9 H (1.3-7.7) k/uL Lymphocytes # (1.0-4.8) k/uL ABG pH (7.35-7.45) ABG pCO2 (35-45) mmHg ABG HCO3 (21-25) mmol/L ABG Total CO2 (19-24) mmol/L ABG O2 Saturation (94-97) % Sodium 127 L (137-145) mmol/L Potassium (3.5-5.1) mmol/L Chloride 85 L (98-107) mmol/L Carbon Dioxide 37 H (22-30) mmol/L BUN 26 H (9-20) mg/dL Glucose 116 H (74-99) mg/dL POC Glucose (mg/dL) (75-99) mg/dL Calcium (8.4-10.2) mg/dL Alkaline Phosphatase (38-126) U/L C-Reactive Protein 13.6 H (<10.0) mg/L 01/10/20 01/10/20 01/10/20 Range/Units 07:08 08:11 08:12 WBC 10.8 H (3.8-10.6) k/uL RDW 15.8 H (11.5-15.5) % Neutrophils # 9.8 H (1.3-7.7) k/uL Lymphocytes # 0.6 L (1.0-4.8) k/uL ABG pH 7.34 L (7.35-7.45) ABG pCO2 71 H* (35-45) mmHg ABG HCO3 38 H (21-25) mmol/L ABG Total CO2 41 H (19-24) mmol/L ABG O2 Saturation 97.3 H (94-97) % Sodium (137-145) mmol/L Potassium (3.5-5.1) mmol/L Chloride (98-107) mmol/L Carbon Dioxide (22-30) mmol/L BUN (9-20) mg/dL Glucose (74-99) mg/dL POC Glucose (mg/dL) 183 H (75-99) mg/dL Calcium (8.4-10.2) mg/dL Alkaline Phosphatase (38-126) U/L C-Reactive Protein (<10.0) mg/L 01/10/20 Range/Units 08:12 WBC (3.8-10.6) k/uL RDW (11.5-15.5) % Neutrophils # (1.3-7.7) k/uL Lymphocytes # (1.0-4.8) k/uL ABG pH (7.35-7.45) ABG pCO2 (35-45) mmHg ABG HCO3 (21-25) mmol/L ABG Total CO2 (19-24) mmol/L ABG O2 Saturation (94-97) % Sodium 130 L (137-145) mmol/L Potassium 5.7 H (3.5-5.1) mmol/L Chloride 87 L (98-107) mmol/L Carbon Dioxide 38 H (22-30) mmol/L BUN 23 H (9-20) mg/dL Glucose 173 H (74-99) mg/dL POC Glucose (mg/dL) (75-99) mg/dL Calcium 8.3 L (8.4-10.2) mg/dL Alkaline Phosphatase 36 L (38-126) U/L C-Reactive Protein (<10.0) mg/L Thrombosis Risk Factor Assmnt - Choose All That Apply Any of the Below Risk Factors Present?: Yes Each Factor Represents 1 point: Abnormal pulmonary function (COPD), Obesity (BMI >25), Swollen legs (current) Other Risk Factors: Yes Each Risk Factor Represents 2 Points: Age 61-74 years Other congenital or acquired thrombophilia - If yes, enter type in comment: No Thrombosis Risk Factor Assessment Total Risk Factor Score: 5 Thrombosis Risk Factor Assessment Level: High Risk Assessment and Plan Assessment: 1. Acute hypoxic/hypercapnic respiratory failure secondary to an acute exacerbation of suspected systolic versus diastolic congestive heart failure, acute exacerbation of chronic obstructive pulmonary disease - Patient is started on IV Solu-Medrol in form of cystic and milligrams every 6 hours; continue with DuoNeb nebulizer treatments; patient will remain on BiPAP as needed; chest x-ray was repeated which showed CHF; patient is started on IV Lasix; continue with IV antibiotics in form of Zosyn; pulmonary is consulted and recommendations are pending 2. Community-acquired pneumonia; patient was started on IV azithromycin and Rocephin in ED; we will switch patient to IV Zosyn 3.375 g every 8 hours; titrate O2 keeping SpO2 greater than 90%; symptomatic treatment of pneumonia 3. Acute exacerbation of chronic CHF; patient is started on IV Lasix 40 mg every 12 hours; monitor strict WAQAR's, daily weights, renal function and electrolytes; continue with fluid and sodium restricted diet 4. Coronary artery disease with previous stent placement; continue with aspirin, Lipitor and lisinopril 5. Hypertension; stable on home dose of lisinopril 2.5 mg daily 6. Hypothyroidism; levothyroxin 28 MCG daily 7. Schizophrenia; home dose of Depakote thousand milligrams twice a day will be continued; Patient also takes Invega at home 8. Diabetes mellitus 2; we will hold off on metformin and start patient on Accu-Cheks every before meals and at bedtime with insulin sliding scale DVT prophylaxis; SCDs/subcu heparin CODE STATUS; full code
[2020-01-10 17:13] LABS: Glucose,Whole Blood 211 mg/dL (75-99)
[2020-01-10] MEDS: INSULIN ASPART (NovoLOG) 100 UNIT/ML VIAL SQ SCH ×2 (17:35→21:02)
[2020-01-10] MEDS: BUDESONIDE 1 MG/2 ML NEBU INHALATION SCH (19:48)
[2020-01-10] MEDS: FORMOTEROL FUMARATE 20 MCG/2 ML NEBU INHALATION SCH (19:49)
[2020-01-10 20:09] LABS: Glucose,Whole Blood 197 mg/dL (75-99)
[2020-01-10] MEDS: DIVALPROEX ER 500 MG TAB.ER.24H PO SCH (21:02)
[2020-01-10] MEDS: ATORVASTATIN 40 MG TAB PO SCH (21:02)
[2020-01-10] MEDS: ALLOPURINOL 100 MG TAB PO SCH (21:04)
[2020-01-11] MEDS: PIPERACILLIN-TAZOBACTAM 3.375 GM in SODIUM CHLORIDE 0.9% 100 ML IVPB SCH ×3 (00:27→16:49)
[2020-01-11] MEDS: methylPREDNISolone SOD SUCCI 125 MG/2 ML VIAL IV SCH ×4 (00:27→17:40)
[2020-01-11] MEDS: IPRATROPIUM-ALBUTEROL 3 ML NEB INHALATION SCH ×5 (03:10→21:52)
[2020-01-11 06:14] LABS: Glucose,Whole Blood 203 mg/dL (75-99)
[2020-01-11] MEDS: INSULIN ASPART (NovoLOG) 100 UNIT/ML VIAL SQ SCH ×4 (07:01→21:04)
[2020-01-11] MEDS: LEVOTHYROXINE 100 MCG TAB PO SCH (07:01)
[2020-01-11] MEDS: BUDESONIDE 1 MG/2 ML NEBU INHALATION SCH ×2 (08:52→21:52)
[2020-01-11] MEDS: FORMOTEROL FUMARATE 20 MCG/2 ML NEBU INHALATION SCH ×2 (08:52→21:52)
[2020-01-11] MEDS: ASPIRIN 81 MG PO SCH (10:19)
[2020-01-11] MEDS: LISINOPRIL 2.5 MG TAB PO SCH (10:19)
[2020-01-11] MEDS: ALLOPURINOL 100 MG TAB PO SCH ×2 (10:19→21:04)
[2020-01-11] MEDS: DIVALPROEX ER 500 MG TAB.ER.24H PO SCH ×2 (10:19→21:03)
[2020-01-11] MEDS: FUROSEMIDE 10 MG/ML 4 ML VIAL IV SCH ×2 (10:20→21:03)
[2020-01-11] MEDS: TAMSULOSIN 0.4 MG CAP.ER.24H PO SCH (10:26)
[2020-01-11 11:51] LABS: Glucose,Whole Blood 324 mg/dL (75-99)
--- NOTE | 2020-01-11 14:08 | P.PN ---
Subjective Progress Note Date: 01/11/20 Principal diagnosis: Shortness of breath, cough and congestion This is a 59-year-old gentleman residing in an adult foster care setting with visiting physicians. He has a history of coronary artery disease with previous stent stent placement, hypothyroidism, hypertension, schizophrenia, diabetes mellitus. He was brought into the emergency room yesterday with complaints of increasing shortness of breath, cough and congestion. Chest x-ray revealed right basilar atelectasis and can't commit knee effusion with changes of congestive heart failure with vascular congestion. White count 11.4. Hemoglobin 14.6. Sodium 127. Potassium 5.1. Creatinine 1.02. ProBNP 429. Influenza screen was negative. He was admitted to the regular medical floor and placed on BiPAP around midnight. Earlier this morning on dayshift staff found the patient quite obtunded. Arterial blood gases revealed a PaO2 of 88, pCO2 71 and a pH of 7.34 on 50% FiO2. He was given Lasix 40 mg IVP. He is seen today in consultation. He is currently awake and alert in no acute distress. He does have some confusion to time and place. He's been initiated on bronchodilators, IV Solu-Medrol, Zosyn, IV diuretics. He is to be transferred to the selective care unit for closer observation. On 01/11/2020 patient seen in follow-up on selective care unit. He is resting in bed, he is on 5 L of oxygen right now and his pulse ox is 92%, patient has been intermittently vomiting, but he is still attempting to drink his coffee. Denies any abdominal pain, he is afebrile, she did wear the BiPAP last night. Is currently on combination of Zosyn, IV Solu-Medrol, and IV diuretics, his chest x-ray yesterday showed right basilar atelectasis with concomitant effusion, and superimposed changes of congestive heart failure. He is maintaining negative fluid balance, his been in -1780 mL fluid balance. Objective - Vital Signs Vital signs: Vital Signs Temp 98.3 F 01/11/20 08:30 Pulse 92 01/11/20 13:00 Resp 22 01/11/20 08:30 BP 114/57 01/11/20 08:30 Pulse Ox 92 L 01/11/20 08:30 Intake & Output 01/10/20 01/11/20 01/11/20 18:59 06:59 18:59 Output Total 3845 045 3319 Balance -1300 -480 -1400 Weight 0 g Output: Urine 5456 977 2351 Other: Voiding Method Indwelling Catheter Indwelling Catheter Indwelling Catheter # Voids 1 # Bowel Movements 0 2 - Exam GENERAL EXAM: Alert, obese, 59-year-old white male, 5 L of oxygen, resting in bed, with intermittent episodes of vomiting, comfortable in no apparent distress. HEAD: Normocephalic/atraumatic. EYES: Normal reaction of pupils, equal size. Conjunctiva pink, sclera white. NOSE: Clear with pink turbinates. THROAT: No erythema or exudates. NECK: No masses, no JVD, no thyroid enlargement, no adenopathy. CHEST: No chest wall deformity. Symmetrical expansion. LUNGS: Equal air entry with scattered rhonchi CVS: Regular rate and rhythm, normal S1 and S2, no gallops, no murmurs, no rubs ABDOMEN: Soft, obese, nontender. No hepatosplenomegaly, normal bowel sounds, no guarding or rigidity. EXTREMITIES: No clubbing, no edema, no cyanosis, 2+ pulses and upper and lower extremities. MUSCULOSKELETAL: Muscle strength and tone normal. SPINE: No scoliosis or deformity SKIN: No rashes CENTRAL NERVOUS SYSTEM: Alert and oriented -3. No focal deficits, tone is normal in all 4 extremities. PSYCHIATRIC: Alert and oriented -3. Appropriate affect. Intact judgment and insight. - Labs CBC & Chem 7: 01/10/20 08:12 01/10/20 08:12 Labs: Abnormal Lab Results - Last 24 Hours (Table) 01/10/20 01/10/20 01/11/20 Range/Units 17:08 20:08 06:12 POC Glucose (mg/dL) 211 H 197 H 203 H (75-99) mg/dL 01/11/20 Range/Units 11:49 POC Glucose (mg/dL) 324 H (75-99) mg/dL Microbiology - Last 24 Hours (Table) 01/09/20 23:40 Blood Culture - Preliminary Blood No Growth after 24 hours 01/10/20 03:30 Gram Stain - Preliminary Sputum Assessment and Plan Plan: Assessment: 1 Acute hypoxic respiratory failure secondary to an acute exacerbation of suspected systolic versus diastolic congestive heart failure, acute exacerbation of chronic obstructive pulmonary disease 2 Acute hypercapnic respiratory failure secondary to above 3 Chronic and ongoing tobacco dependence 4 Coronary artery disease with previous stent placement 5 Hypertension 6 Hypothyroidism 7 Schizophrenia 8 Diabetes mellitus Plan: Maintain aspiration precautions, BiPAP support as needed, continue with IV Lasix, IV steroids and IV Zosyn, echocardiogram has been ordered and is pending at this time. Await results of the blood and sputum cultures, patient has been afebrile, he has been intermittently vomiting, continue with aspiration pre cautions, denies any abdominal pain, we'll continue to closely follow, will do chest x-ray tomorrow I performed a history & physical examination of the patient and discussed their management with my nurse practitioner, Lesley Kilgore. I reviewed the nurse practitioner's note and agree with the documented findings and plan of care. Lung sounds are positive for diffuse rhonchi. The findings and the impression was discussed with the patient. I attest to the documentation by the nurse practitioner. Time with Patient: Less than 30
--- NOTE | 2020-01-11 16:22 | P.PN ---
Subjective Progress Note Date: 01/11/20 Principal diagnosis: 59-year-old gentleman residing in an adult foster care setting with visiting physicians. He has a history of coronary artery disease with previous stent stent placement, hypothyroidism, hypertension, schizophrenia, diabetes mellitus. He was brought into the emergency room yesterday with complaints of increasing shortness of breath, cough and congestion. Chest x-ray revealed right basilar atelectasis and can't commit knee effusion with changes of congestive heart failure with vascular congestion. White count 11.4. Hemoglobin 14.6. Sodium 127. Potassium 5.1. Creatinine 1.02. ProBNP 429. Influenza screen was negative. He was admitted to the regular medical floor and placed on BiPAP around midnight. Earlier this morning on dayshift staff found the patient quite obtunded. Arterial blood gases revealed a PaO2 of 88, pCO2 71 and a pH of 7.34 on 50% FiO2. He was given Lasix 40 mg IVP. He is seen today in consultation. He is currently awake and alert in no acute distress. He does have some confusion to time and place. He's been initiated on bronchodilators, IV Solu- Medrol, Zosyn, IV diuretics. He is to be transferred to the selective care unit for closer observation. 01/11/2020 Patient is seen in follow-up today on the selected unit as he was requiring BiPAP for shortness of breath and is currently on nasal cannula at 5 L and being closely monitored. Patient continues to remove his oxygen and becomes quite hypoxic. Patient states that his breathing is slightly improved but is currently nothing by mouth as he continues to be quite lethargic and coughing on thin liquids. Possible speech evaluation may be needed. Patient continues on bronchodilators along with IV steroids and IV diuretics at this time. Patient is on IV antibiotics in the form of Zosyn and will continue at this time. No reports of chest pain or palpitations. Patient is afebrile. Will continue to monitor closely. Objective - Vital Signs Vital signs: Vital Signs Temp 98.3 F 01/11/20 12:00 Pulse 92 01/11/20 13:00 Resp 24 01/11/20 12:00 BP 120/65 01/11/20 12:00 Pulse Ox 92 L 01/11/20 12:00 Intake & Output 01/10/20 01/11/20 01/11/20 18:59 06:59 18:59 Output Total 8749 513 5930 Balance -1300 -480 -1700 Weight 0 g Output: Urine 6316 164 5249 Other: Voiding Method Indwelling Catheter Indwelling Catheter Indwelling Catheter # Voids 1 # Bowel Movements 0 2 - Exam GENERAL EXAM: 59-year-old male sleeping arousable with touch, alert and oriented 2-3, on 5 L nasal cannula, comfortable in no apparent distress. There is 98.3F, pulse is 96, respirations are 18, blood pressure is 120/65, oxygen saturation is 92% on 5 L via nasal cannula HEAD: Normocephalic. EYES: Normal reaction of pupils, equal size. NOSE: Clear with pink turbinates. THROAT: No erythema or exudates. NECK: No masses, no JVD. CHEST: No chest wall deformity. LUNGS: Diminished breath sounds at the bases with crackles in the bilateral posterior bases right greater than left CVS: S1 and S2 normal with no audible murmur, regular rhythm. ABDOMEN: No hepatosplenomegaly, normal bowel sounds, no guarding or rigidity. SPINE: No scoliosis or deformity SKIN: No rashes CENTRAL NERVOUS SYSTEM: No focal deficits, tone is normal in all 4 extremities. EXTREMITIES: There is no peripheral edema. No clubbing, no cyanosis. Peripheral pulses are intact. - Labs CBC & Chem 7: 01/10/20 08:12 01/10/20 08:12 Labs: Abnormal Lab Results - Last 24 Hours (Table) 01/10/20 01/10/20 01/11/20 Range/Units 17:08 20:08 05:39 POC Glucose (mg/dL) 211 H 197 H (75-99) mg/dL Hemoglobin A1c 7.0 H (4.0-6.0) % 01/11/20 01/11/20 Range/Units 06:12 11:49 POC Glucose (mg/dL) 203 H 324 H (75-99) mg/dL Hemoglobin A1c (4.0-6.0) % Microbiology - Last 24 Hours (Table) 01/09/20 23:40 Blood Culture - Preliminary Blood No Growth after 24 hours 01/10/20 03:30 Gram Stain - Preliminary Sputum Assessment and Plan Assessment: 1. Acute hypoxic/hypercapnic respiratory failure secondary to an acute exacerbation of suspected systolic versus diastolic congestive heart failure, acute exacerbation of chronic obstructive pulmonary disease 2. Community-acquired pneumonia 3. Acute exacerbation of chronic CHF 4. Coronary artery disease with previous stent placement 5. Hypertension 6. Hypothyroidism 7. Schizophrenia 8. Diabetes mellitus 2 9. DVT prophylaxis; SCDs/subcu heparin 10.CODE STATUS; full code Recommendations and discussion: Recommend to continue current medications, management, and symptomatic treatment. Will continue to monitor patient closely. Patient is currently off BiPAP and tolerating oxygen via 5 L nasal cannula. Will continue with bronchodilators, IV steroids, IV Lasix at this time. Will continue with IV antibiotics in the form of Zosyn at this time as well. Will continue to monitor blood glucose and treat with sliding scale. Current hemoglobin A1c is 7.0. Case management and social work are following for possible ECF upon discharge. Further recommendations to follow.
[2020-01-11 17:00] LABS: Glucose,Whole Blood 182 mg/dL (75-99)
--- NOTE | 2020-01-11 17:47 | P.GSCN ---
History of Present Illness Consult date: 01/11/20 Reason for Consult: Urinary retention History of present illness: Mr Clifford is a 59-year-old gentleman with multiple comorbidities, he is admitted to the hospital with increasing shortness of breath, cough and congestion. Urology is consulted for urinary retention. He had kirk placed for urinary retention. It's unknown what his PVR was. Denies any voiding symptoms at baseline. But indicated he started having trouble voding the past 24-48 hours. Denies any obstructive symptoms. No previous hx of urinary retention. Denies any hx of Gross hematuria or any hx of UTIs. Review of Systems - Constitutional Reports chills, Denies fever - EENT Ears, nose, mouth and throat: Denies dysphagia, Denies headache - Cardiovascular Reports dyspnea on exertion, Reports shortness of breath, Denies chest pain - Respiratory Reports cough, Reports dyspnea - Gastrointestinal Denies abdominal pain, Denies nausea, Denies vomiting - Genitourinary Reports urinary retention, Denies dysuria, Denies flank pain, Denies hematuria, Denies kidney stones - Neurological Denies confusion, Denies weakness Past Medical History Past Medical History: Coronary Artery Disease (CAD), Chest Pain / Angina, COPD, Diabetes Mellitus, Hyperlipidemia, Hypertension, Pneumonia, Sleep Apnea/CPAP/BIPAP, Thyroid Disorder Additional Past Medical History / Comment(s): hernia bipolar, schizophrenia, History of Any Multi-Drug Resistant Organisms: None Reported Past Surgical History: Coronary Bypass/CABG, Orthopedic Surgery Past Psychological History: No Psychological Hx Reported Smoking Status: Current every day smoker Past Alcohol Use History: None Reported Past Drug Use History: None Reported - Past Family History Father History Unknown: Yes Family Medical History: Dementia Mother History Unknown: Yes Family Medical History: COPD Medications and Allergies Home Medications Medication Instructions Recorded Confirmed Type Aspirin EC [Ecotrin Low Dose] 81 mg PO DAILY@0800 07/30/19 01/10/20 History Atorvastatin [Lipitor] 40 mg PO HS 07/30/19 01/10/20 History Albuterol Inhaler [Ventolin Hfa 2 puff INHALATION RT-QID PRN #1 08/19/19 Rx Inhaler] puff metFORMIN HCL 1,000 mg PO BID #28 tab 08/19/19 01/10/20 Rx Allopurinol [Zyloprim] 100 mg PO BID@0800,199901/10/20 01/10/20 History Divalproex ER [Depakote ER] 1,000 mg PO BID@799,199901/10/20 01/10/20 History Ergocalciferol (Vitamin D2) 50,000 unit PO MO 01/10/20 01/10/20 History [Vitamin D2] Fluticasone Nasal [place] [Flonase 2 spr EA NOSTRIL DAILY PRN 01/10/20 01/10/20 History Nasal [place]] Levothyroxine Sodium [Synthroid] 200 mcg PO DAILY 01/10/20 01/10/20 History Lisinopril [Zestril] 2.5 mg PO DAILY 01/10/20 01/10/20 History Paliperidone IM [Invega Sustenna] 234 mg IM QMONTH 01/10/20 01/10/20 History Torsemide [Demadex] 40 mg PO BID@0700,1600 01/10/20 01/10/20 History Allergies Allergy/AdvReac Type Severity Reaction Status Date / Time No Known Allergies Allergy Verified 01/10/20 09:23 Surgical - Exam Vital Signs Temp Pulse Resp BP Pulse Ox 98.1 F 94 18 120/66 91 L 01/09/20 22:13 01/09/20 22:13 01/09/20 22:13 01/09/20 22:13 01/09/20 22:13 - General no distress, no pain - Eyes normal ocular movement, no pale - ENT normal mucosa, no hearing loss - Respiratory normal expansion, normal respiratory effort - Abdomen Abdomen: soft, non tender, no distended - Psychiatric oriented to time, oriented to person, oriented to place, speech is normal Results - Labs 01/10/20 08:12 01/10/20 08:12 Abnormal Lab Results - Last 24 Hours (Table) 01/10/20 01/11/20 01/11/20 Range/Units 20:08 05:39 06:12 POC Glucose (mg/dL) 197 H 203 H (75-99) mg/dL Hemoglobin A1c 7.0 H (4.0-6.0) % 01/11/20 01/11/20 Range/Units 11:49 16:59 POC Glucose (mg/dL) 324 H 182 H (75-99) mg/dL Hemoglobin A1c (4.0-6.0) % Microbiology - Last 24 Hours (Table) 01/09/20 23:40 Blood Culture - Preliminary Blood No Growth after 24 hours 01/10/20 03:30 Gram Stain - Preliminary Sputum Diabetes panel 01/11/20 Range/Units 05:39 Hemoglobin A1c 7.0 H (4.0-6.0) % Assessment and Plan Assessment: 59 yo male admitted to the hospital with Shortness of breath. Kirk catheter was placed for urinary retention, his PVR is unknown. No voiding symptoms at baseline, but having difficulty voiding the past 24-48 hours -UA -Start flomax 0.4 mg and discharge home on flomax -Keep kirk in place for 7-10 days, can f/u in Urology clinic in 7-10 days for TOV
--- NOTE | 2020-01-11 19:44 | ECHOF ---
Referral Reason:LV function MEASUREMENTS -------- HEIGHT: 170.2 cm WEIGHT: 147.4 kg BP: RVIDd: 4.1 cm (< 3.3) IVSd: 1.5 cm (0.6 - 1.1) LVIDd: 4.9 cm (3.9 - 5.3) LVPWd: 1.5 cm (0.6 - 1.1) IVSs: 2.4 cm LVIDs: 3.4 cm LVPWs: 1.9 cm LA Diam: 3.9 cm (2.7 - 3.8) LAESV Index (A-L): 24.31 ml/m Ao Diam: 3.7 cm (2.0 - 3.7) AV Cusp: 2.5 cm (1.5 - 2.6) MV EXCURSION: 22.667 mm (> 18.000) MV EF SLOPE: 140 mm/s (70 - 150) EPSS: 1.2 cm MV E Adolfo: 1.13 m/s MV DecT: 206 ms MV A Adolfo: 1.14 m/s MV E/A Ratio: 0.99 AV maxP.38 mmHg AV meanP.02 mmHg RAP: 15.00 mmHg RVSP: 47.13 mmHg FINDINGS -------- Sinus rhythm. This was a technically difficult study with suboptimal views. The left ventricular size is normal. There is moderate concentric left ventricular hypertrophy. O verall left ventricular systolic function is normal with, an EF between 60 - 65 %. The right ventricle is moderately enlarged. Normal LA size by volume 22+/-6 ml/m2. The right atrium is normal in size. 5.0mg of Lumason was utilized for enhancement of images Interatrial and interventricular septum intact. The aortic valve is trileaflet and appears structurally normal. The mitral valve is normal. Mild tricuspid regurgitation present. There is mild to moderate pulmonary hypertension. The right ventricular systolic pressure, as measured by Doppler, is 47.13mmHg. Trace/mild (physiologic) pulmonic regurgitation. The aortic root size is normal. The inferior vena cava is dilated with poor inspiratory collapse which is consistent with estimated r ight atrial pressure of 15 mmHg. There is no pericardial effusion. CONCLUSIONS -------- 1. Sinus rhythm. 2. This was a technically difficult study with suboptimal views. 3. The left ventricular size is normal. 4. There is moderate concentric left ventricular hypertrophy. 5. Overall left ventricular systolic function is normal with, an EF between 60 - 65 %. 6. The right ventricle is moderately enlarged. 7. Normal LA size by volume 22+/-6 ml/m2. 8. The right atrium is normal in size. 9. 5.0mg of Lumason was utilized for enhancement of images 10. Interatrial and interventricular septum intact. 11. The aortic valve is trileaflet and appears structurally normal. 12. The mitral valve is normal. 13. Mild tricuspid regurgitation present. 14. There is mild to moderate pulmonary hypertension. 15. The right ventricular systolic pressure, as measured by Doppler, is 47.13mmHg. 16. Trace/mild (physiologic) pulmonic regurgitation. 17. The aortic root size is normal. 18. The inferior vena cava is dilated with poor inspiratory collapse which is consistent with estimat ed right atrial pressure of 15 mmHg. 19. There is no pericardial effusion. GIG TENDER: ROSARIO Xiao
[2020-01-11 20:36] LABS: Glucose,Whole Blood 243 mg/dL (75-99)
[2020-01-11] MEDS: ATORVASTATIN 40 MG TAB PO SCH (21:04)
[2020-01-12] MEDS: IPRATROPIUM-ALBUTEROL 3 ML NEB INHALATION SCH ×6 (00:32→20:28)
[2020-01-12] MEDS: methylPREDNISolone SOD SUCCI 125 MG/2 ML VIAL IV SCH ×5 (01:06→23:35)
[2020-01-12] MEDS: PIPERACILLIN-TAZOBACTAM 3.375 GM in SODIUM CHLORIDE 0.9% 100 ML IVPB SCH ×4 (01:07→23:34)
[2020-01-12] MEDS: LEVOTHYROXINE 100 MCG TAB PO SCH (05:22)
[2020-01-12 07:10] LABS: Glucose,Whole Blood 212 mg/dL (75-99)
[2020-01-12] MEDS: TAMSULOSIN 0.4 MG CAP.ER.24H PO SCH (08:38)
[2020-01-12] MEDS: INSULIN ASPART (NovoLOG) 100 UNIT/ML VIAL SQ SCH ×4 (08:38→21:10)
[2020-01-12] MEDS: LISINOPRIL 2.5 MG TAB PO SCH (08:38)
[2020-01-12] MEDS: ASPIRIN 81 MG PO SCH (08:38)
[2020-01-12] MEDS: DIVALPROEX ER 500 MG TAB.ER.24H PO SCH ×2 (08:38→21:09)
[2020-01-12] MEDS: FUROSEMIDE 10 MG/ML 4 ML VIAL IV SCH ×2 (08:38→21:10)
[2020-01-12] MEDS: ALLOPURINOL 100 MG TAB PO SCH ×2 (08:38→21:09)
[2020-01-12] MEDS: BUDESONIDE 1 MG/2 ML NEBU INHALATION SCH ×2 (08:49→20:27)
[2020-01-12] MEDS: FORMOTEROL FUMARATE 20 MCG/2 ML NEBU INHALATION SCH ×2 (08:49→20:27)
--- NOTE | 2020-01-12 09:17 | XR ---
EXAMINATION TYPE: XR chest 1V portable DATE OF EXAM: 01/12/2020 COMPARISON: 01/10/2020 HISTORY: Shortness of breath TECHNIQUE: Single frontal view of the chest is obtained. FINDINGS: Improved aeration of the lungs is seen. There remains a small right layering pleural effus ion and minimal interstitial pulmonary edema. Enlarged cardiac mediastinal silhouette. Resolved left pleural effusion. No sizable pneumothorax. No acute osseous pathology. IMPRESSION: Improved aeration all lungs and improved fluid overload with small residual right pleura l effusion and associated right basilar atelectasis.
[2020-01-12 09:42] LABS: Calcium 8.2 mg/dL (8.4-10.2); Potassium 5.8 mmol/L (3.5-5.1)
--- NOTE | 2020-01-12 11:46 | P.PN ---
Subjective Progress Note Date: 01/12/20 Principal diagnosis: Acute exacerbation of her suspected systolic versus diastolic congestive heart failure with a COPD exacerbation This is a 59-year-old gentleman residing in an adult foster care setting with visiting physicians. He has a history of coronary artery disease with previous stent stent placement, hypothyroidism, hypertension, schizophrenia, diabetes mellitus. He was brought into the emergency room yesterday with complaints of increasing shortness of breath, cough and congestion. Chest x-ray revealed right basilar atelectasis and can't commit knee effusion with changes of congestive heart failure with vascular congestion. White count 11.4. Hemoglobin 14.6. Sodium 127. Potassium 5.1. Creatinine 1.02. ProBNP 429. Influenza screen was negative. He was admitted to the regular medical floor and placed on BiPAP around midnight. Earlier this morning on dayshift staff found the patient quite obtunded. Arterial blood gases revealed a PaO2 of 88, pCO2 71 and a pH of 7.34 on 50% FiO2. He was given Lasix 40 mg IVP. He is seen today in consultation. He is currently awake and alert in no acute distress. He does have some confusion to time and place. He's been initiated on bronchodilators, IV Solu-Medrol, Zosyn, IV diuretics. He is to be transferred to the selective care unit for closer observation. On 01/11/2020 patient seen in follow-up on selective care unit. He is resting in bed, he is on 5 L of oxygen right now and his pulse ox is 92%, patient has been intermittently vomiting, but he is still attempting to drink his coffee. Denies any abdominal pain, he is afebrile, she did wear the BiPAP last night. Is currently on combination of Zosyn, IV Solu-Medrol, and IV diuretics, his chest x-ray yesterday showed right basilar atelectasis with concomitant effusion, and superimposed changes of congestive heart failure. He is maint aining negative fluid balance, his been in -1780 mL fluid balance. The patient is seen today 01/12/2020 in follow-up on the regular medical floor. He is currently standing up at the bedside. Awake and alert in no acute distress. Currently maintaining O2 saturations in the low 90s on 5 L high flow nasal cannula. He is afebrile. Hemodynamically stable. Sputum cultures positive for Haemophilus influenza. Sodium 126. Potassium 5.8. Chloride 83. Bicarb 35. Creatinine 1.06. He remains on IV diuretics, IV Solu-Medrol, bronchodilators, Zosyn. Objective - Vital Signs Vital signs: Vital Signs Temp 98.0 F 01/12/20 05:41 Pulse 92 01/12/20 09:13 Resp 20 01/12/20 05:41 BP 103/62 01/12/20 05:41 Pulse Ox 92 L 01/12/20 05:41 Intake & Output 01/11/20 01/12/20 01/12/20 18:59 06:59 18:59 Intake Total 1500 Output Total 1700 2200 Balance -1700 -700 Intake: Oral 1500 Output: Urine 1700 2200 Other: Voiding Method Indwelling Catheter # Bowel Movements 1 1 2 - Exam GENERAL EXAM: Alert, obese, 59-year-old male patient on 5 L of oxygen, comfortable in no apparent distress. HEAD: Normocephalic/atraumatic. EYES: Normal reaction of pupils, equal size. Conjunctiva pink, sclera white. NOSE: Clear with pink turbinates. THROAT: No erythema or exudates. NECK: No masses, no JVD, no thyroid enlargement, no adenopathy. CHEST: No chest wall deformity. Symmetrical expansion. LUNGS: Equal air entry with scattered rhonchi CVS: Regular rate and rhythm, normal S1 and S2, no gallops, no murmurs, no rubs ABDOMEN: Soft, obese, nontender. No hepatosplenomegaly, normal bowel sounds, no guarding or rigidity. EXTREMITIES: No clubbing, no edema, no cyanosis, 2+ pulses and upper and lower extremities. MUSCULOSKELETAL: Muscle strength and tone normal. SPINE: No scoliosis or deformity SKIN: No rashes CENTRAL NERVOUS SYSTEM: No focal deficits, tone is normal in all 4 extremities. PSYCHIATRIC: Alert and oriented -3. Appropriate affect. Intact judgment and insight. - Labs CBC & Chem 7: 01/10/20 08:12 01/12/20 09:00 Labs: Abnormal Lab Results - Last 24 Hours (Table) 01/11/20 01/11/20 01/11/20 Range/Units 05:39 11:49 16:59 Sodium (137-145) mmol/L Potassium (3.5-5.1) mmol/L Chloride (98-107) mmol/L Carbon Dioxide (22-30) mmol/L BUN (9-20) mg/dL Glucose (74-99) mg/dL POC Glucose (mg/dL) 324 H 182 H (75-99) mg/dL Hemoglobin A1c 7.0 H (4.0-6.0) % Calcium (8.4-10.2) mg/dL 01/11/20 01/12/20 01/12/20 Range/Units 20:35 07:05 09:00 Sodium 126 L (137-145) mmol/L Potassium 5.8 H (3.5-5.1) mmol/L Chloride 83 L (98-107) mmol/L Carbon Dioxide 35 H (22-30) mmol/L BUN 40 H (9-20) mg/dL Glucose 254 H (74-99) mg/dL POC Glucose (mg/dL) 243 H 212 H (75-99) mg/dL Hemoglobin A1c (4.0-6.0) % Calcium 8.2 L (8.4-10.2) mg/dL Microbiology - Last 24 Hours (Table) 01/10/20 03:30 Gram Stain - Final Sputum Sputum Culture - Final Haemophilus influenzae 01/09/20 23:40 Blood Culture - Preliminary Blood No Growth after 48 hours Assessment and Plan Assessment: 1 Acute hypoxic respiratory failure secondary to an acute exacerbation of di astolic congestive heart failure, acute exacerbation of chronic obstructive pulmonary disease, complicated by Haemophilus Influenza 2 Acute hypercapnic respiratory failure secondary to above 3 Chronic and ongoing tobacco dependence 4 Coronary artery disease with previous stent placement 5 Hypertension 6 Hypothyroidism 7 Schizophrenia 8 Diabetes mellitus Plan: The patient was seen and evaluated by Dr. Javed. The patient is positive for Haemophilus influenza. Sensitive to most antibiotics and will be discharged home on oral antibiotics once cleared medically. In the interim we will c ontinue IV Zosyn, IV Solu-Medrol. Continue IV diuretics. We will continue to follow and make further recommendations based on his clinical status. I, the cosigning physician, performed a history & physical examination of the patient. Lungs sounds with basilar crackles right greater than left. Maintaining good O2 saturations in the 90s on 5 L/m per nasal cannula alternating with BiPAP. I discussed the assessment and plan of care with my nurse practitioner, Darcy Levy. I attest to the above note as dictated by her.
[2020-01-12 12:26] LABS: Glucose,Whole Blood 248 mg/dL (75-99)
[2020-01-12] MEDS ORDERED: SODIUM POLYSTYRENE SULFONATE 15 GM/60 ML BOTTLE PO STA (15:13)
--- NOTE | 2020-01-12 15:21 | P.PN ---
Subjective Progress Note Date: 01/12/20 Principal diagnosis: 59-year-old gentleman residing in an adult foster care setting with visiting physicians. He has a history of coronary artery disease with previous stent stent placement, hypothyroidism, hypertension, schizophrenia, diabetes mellitus. He was brought into the emergency room yesterday with complaints of increasing shortness of breath, cough and congestion. Chest x-ray revealed right basilar atelectasis and can't commit knee effusion with changes of congestive heart failure with vascular congestion. White count 11.4. Hemoglobin 14.6. Sodium 127. Potassium 5.1. Creatinine 1.02. ProBNP 429. Influenza screen was negative. He was admitted to the regular medical floor and placed on BiPAP around midnight. Earlier this morning on dayshift staff found the patient quite obtunded. Arterial blood gases revealed a PaO2 of 88, pCO2 71 and a pH of 7.34 on 50% FiO2. He was given Lasix 40 mg IVP. He is seen today in consultation. He is currently awake and alert in no acute distress. He does have some confusion to time and place. He's been initiated on bronchodilators, IV Solu- Medrol, Zosyn, IV diuretics. He is to be transferred to the [facility] care unit for closer observation. 01/11/2020 Patient is seen in follow-up today on the selected unit as he was requiring BiPAP for shortness of breath and is currently on nasal cannula at 5 L and being closely monitored. Patient continues to remove his oxygen and becomes quite hypoxic. Patient states that his breathing is slightly improved but is currently nothing by mouth as he continues to be quite lethargic and coughing on thin liquids. Possible speech evaluation may be needed. Patient continues on bronchodilators along with IV steroids and IV diuretics at this time. Patient is on IV antibiotics in the form of Zosyn and will continue at this time. No reports of chest pain or palpitations. Patient is afebrile. Will continue to monitor closely. 01/12/2020 Patient is seen in follow-up today and was recently transferred to the [facility] unit and is being closely monitored. Patient currently maintaining oxygen saturations in the low 90s on 5 L via nasal cannula. Patient is currently off the BiPAP and tolerating well. Patient continues to have a cough with no phlegm production. Patient is currently maintained on bronchodilators along with IV steroids and IV Lasix and will continue at this time. Potassium was elevated at 5.8 and will be given a dose of Kayexalate. Will repeat a.m. labs. Sodium is low at 126. No reports of worsening shortness of breath or chest pain. Patient denies palpitations. Is afebrile. No reports of nausea or vomiting and patient is tolerating diet. Objective - Vital Signs Vital signs: Vital Signs Temp 98.1 F 01/12/20 14:24 Pulse 67 01/12/20 14:24 Resp 16 01/12/20 14:24 BP 105/61 01/12/20 14:24 Pulse Ox 93 L 01/12/20 14:24 Intake & Output 01/11/20 01/12/20 01/12/20 18:59 06:59 18:59 Intake Total 1500 100 Output Total 1700 2200 Balance -1700 -700 100 Intake: Intake, IV Titration 100 Amount Piperacillin-Tazobactam 3 100 .375 gm In Sodium Chloride 0.9% 100 ml @ 25 mls/hr IVPB Q8HR [facility] Rx# :[id number] Oral 1500 Output: Urine 1700 2200 Other: Voiding Method Indwelling Catheter # Bowel Movements 1 1 2 - Exam GENERAL EXAM: 59-year-old male sleeping arousable with touch, alert and oriented 2-3, on 5 L nasal cannula, comfortable in no apparent distress. Temp is 98.0F, pulse is 66, respirations are 20, blood pressure is 103/62, oxygen saturation is 92% on 5 L via nasal cannula HEAD: Normocephalic. EYES: Normal reaction of pupils, equal size. NOSE: Clear with pink turbinates. THROAT: No erythema or exudates. NECK: No masses, no JVD. CHEST: No chest wall deformity. LUNGS: Diminished breath sounds at the bases with crackles in the bilateral posterior bases right greater than left CVS: S1 and S2 normal with no audible murmur, regular rhythm. ABDOMEN: No hepatosplenomegaly, normal bowel sounds, no guarding or rigidity. SPINE: No scoliosis or deformity SKIN: No rashes CENTRAL NERVOUS SYSTEM: No focal deficits, tone is normal in all 4 extremities. EXTREMITIES: There is no peripheral edema. No clubbing, no cyanosis. Peripheral pulses are intact. - Labs CBC & Chem 7: 01/10/20 08:12 01/12/20 09:00 Labs: Abnormal Lab Results - Last 24 Hours (Table) 01/11/20 01/11/20 01/12/20 Range/Units 16:59 20:35 07:05 Sodium (137-145) mmol/L Potassium (3.5-5.1) mmol/L Chloride (98-107) mmol/L Carbon Dioxide (22-30) mmol/L BUN (9-20) mg/dL Glucose (74-99) mg/dL POC Glucose (mg/dL) 182 H 243 H 212 H (75-99) mg/dL Calcium (8.4-10.2) mg/dL 01/12/20 01/12/20 Range/Units 09:00 12:20 Sodium 126 L (137-145) mmol/L Potassium 5.8 H (3.5-5.1) mmol/L Chloride 83 L (98-107) mmol/L Carbon Dioxide 35 H (22-30) mmol/L BUN 40 H (9-20) mg/dL Glucose 254 H (74-99) mg/dL POC Glucose (mg/dL) 248 H (75-99) mg/dL Calcium 8.2 L (8.4-10.2) mg/dL Microbiology - Last 24 Hours (Table) 01/10/20 03:30 Gram Stain - Final Sputum Sputum Culture - Final Haemophilus influenzae 01/09/20 23:40 Blood Culture - Preliminary Blood No Growth after 48 hours Assessment and Plan Assessment: 1. Acute hypoxic/hypercapnic respiratory failure secondary to an acute exacerbation of suspected systolic versus diastolic congestive heart failure, acute exacerbation of chronic obstructive pulmonary disease 2. Community-acquired pneumonia 3. Acute exacerbation of chronic CHF 4. Coronary artery disease with previous stent placement 5. Hypertension 6. Hypothyroidism 7. Schizophrenia 8. Diabetes mellitus 2 9. DVT prophylaxis; SCDs/subcu heparin 10.CODE STATUS; full code Recommendations and discussion: Recommend to continue current medications, management, and symptomatic treatment. Will continue to monitor patient closely. Patient is currently off BiPAP and tolerating oxygen via 5 L nasal cannula. Will continue with bronchodilators, IV steroids, IV Lasix at this time. Potassium was slightly elevated and will be given Kayexalate and will be repeating a.m. labs. Will continue with IV antibiotics in the form of Zosyn at this time as well. Sputum cultures preliminary showing Haemophilus influenza and will await finalization. Blood cultures continue to be negative thus far. Case management and social work are following for possible ECF upon discharge. Further recommendations to follow.
[2020-01-12 17:07] LABS: Glucose,Whole Blood 288 mg/dL (75-99)
[2020-01-12 20:49] LABS: Glucose,Whole Blood 203 mg/dL (75-99)
[2020-01-12] MEDS: ATORVASTATIN 40 MG TAB PO SCH (21:09)
[2020-01-13] MEDS: IPRATROPIUM-ALBUTEROL 3 ML NEB INHALATION SCH ×4 (00:37→12:03)
[2020-01-13] MEDS: LEVOTHYROXINE 100 MCG TAB PO SCH (05:53)
[2020-01-13] MEDS: methylPREDNISolone SOD SUCCI 125 MG/2 ML VIAL IV SCH ×2 (05:54→12:37)
[2020-01-13 07:23] LABS: Glucose,Whole Blood 332 mg/dL (75-99)
[2020-01-13] MEDS: TAMSULOSIN 0.4 MG CAP.ER.24H PO SCH (07:57)
[2020-01-13] MEDS: LISINOPRIL 2.5 MG TAB PO SCH (07:57)
[2020-01-13] MEDS: INSULIN ASPART (NovoLOG) 100 UNIT/ML VIAL SQ SCH ×2 (07:58→12:37)
[2020-01-13] MEDS: PIPERACILLIN-TAZOBACTAM 3.375 GM in SODIUM CHLORIDE 0.9% 100 ML IVPB SCH (07:58)
[2020-01-13] MEDS: DIVALPROEX ER 500 MG TAB.ER.24H PO SCH (07:58)
[2020-01-13] MEDS: ASPIRIN 81 MG PO SCH (07:58)
[2020-01-13] MEDS: ALLOPURINOL 100 MG TAB PO SCH (07:58)
[2020-01-13] MEDS: FUROSEMIDE 10 MG/ML 4 ML VIAL IV SCH (07:59)
[2020-01-13] MEDS: FORMOTEROL FUMARATE 20 MCG/2 ML NEBU INHALATION SCH (08:28)
[2020-01-13] MEDS: BUDESONIDE 1 MG/2 ML NEBU INHALATION SCH (08:28)
[2020-01-13 08:49] LABS: African American GFR (CKD) >90 (>60 ml/min/1.73 sqM); Anion Gap 7 mmol/L; Blood Urea Nitrogen 41 mg/dL (9-20); Calcium 8.2 mg/dL (8.4-10.2); Carbon Dioxide 35 mmol/L (22-30); Chloride 86 mmol/L (98-107); Glucose 363 mg/dL (74-99); Non-African American GFR(CKD) 88 (>60 ml/min/1.73 sqM); Potassium 5.4 mmol/L (3.5-5.1); Sodium 128 mmol/L (137-145)
[2020-01-13 11:33] LABS: Glucose,Whole Blood 297 mg/dL (75-99)
[2020-01-13 12:06] VITALS: PULSE 90
--- NOTE | 2020-01-13 12:25 | P.DS ---
Providers Date of admission: 01/10/20 00:42 Expected date of discharge: 01/13/20 Attending physician: Austin Degroot Consults: 01/10/20 06:43 Consult Physician Urgent Consulting Provider: Steve Deras Consult Reason/Comments: pna, requiring bipap, hypoxia Do you want consulting provider notified?: Yes 01/10/20 12:29 Consult Physician Routine Consulting Provider: John Herrera Consult Reason/Comments: urinary retention Do you want consulting provider notified?: Yes Primary care physician: Stated None Hospital Course: Final diagnosis Acute hypoxic, hypercapnic respiratory failure secondary to an acute exacerbation of suspected systolic versus diastolic congestive heart failure, acute exacerbation of chronic obstructive pulmonary disease Community-acquired pneumonia acute exacerbation of chronic CHF Coronary artery disease with previous stent placement Hypertension next line hypothyroidism Schizophrenia Diabetes mellitus type 2 DVT prophylaxis Full code Discharge disposition Patient is being discharged in a stable condition with guarded prognosis to [facility] for continued PT/OT therapy. Patient will continue on a short course of oral antibiotics in the form of Augmentin for the next one week along with a prednisone taper. Total time taken is 35 minutes. History of present illness 59-year-old gentleman residing in an adult foster care setting with visiting physicians. He has a history of coronary artery disease with previous stent placement, hypothyroidism, hypertension, schizophrenia, diabetes mellitus. He was brought into the emergency room yesterday with complaints of increasing shortness of breath, cough and congestion. Chest x-ray revealed right basilar atelectasis and effusion with changes of congestive heart failure with vascular congestion. White count 11.4. Hemoglobin 14.6. Sodium 127. Potassium 5.1. Creatinine 1.02. ProBNP 429. Influenza screen was negative. He was admitted to the regular medical floor and placed on BiPAP around midnight. Earlier this morning on dayshift staff found the patient quite obtunded. Arterial blood gases revealed a PaO2 of 88, pCO2 71 and a pH of 7.34 on 50% FiO2. He was given Lasix 40 mg IVP. He's been initiated on bronchodilators, IV Solu-Medrol, Zosyn, IV diuretics. 01/13/2020 Patient continues on 5 L of oxygen via nasal cannula and is tolerating well noel g with the use of the BiPAP at night and will continue in the outpatient setting. Patient continues to have a mild cough with no phlegm production. Patient will continue on oral antibiotics in the form of Augmentin for 1 week and then may discontinue. Patient will continue on a prednisone taper as well and the outpatient setting. Patient is going to [facility] specialty [facility] for continued PT/OT therapy for strength and mobility as he has been week and unsteady with his gait. Repeat potassium today is improved and will need repeat labs in 2-3 days to monitor electrolytes. Currently patient denies any worsening shortness of breath, chest pain, or or palpitations. Patient is afebrile. Patient denies any nausea or vomiting and has been tolerating diet. Patient would like to go to [facility] today. On exam vital signs are stable. Temp is 98F, pulse is 98, respirations are 22, blood pressure is 125/61, oxygen is 94% on 5 L via nasal cannula. Cardio S1, S2 are muffled. Respiratory system shows diminished breath sounds at the bases with a few scattered rhonchi noted. Some mild expiratory wheezing noted on exam. Abdomen is soft, obese, and nontender. Nervous system shows mild diffuse weakness. Please refer to medication reconciliation sheet for list of medications. Patient Condition at Discharge: Stable Plan - Discharge Summary New Discharge Prescriptions: New Amoxic-Pot Clav 875-125Mg [Augmentin 875-125] 1 tab PO Q12HR 7 Days #14 tablet Ipratropium-Albuterol Nebulize [Duoneb 0.5 mg-3 mg/3 ml Soln] 3 ml INHALATION RT-Q4H ml Tamsulosin [Flomax] 0.4 mg PO PC-BRKFST cap.er.24h INSULIN ASPART (NovoLOG) [NovoLOG (formulary)] 0 unit SQ ACHS vial Formoterol Fumarate [Perforomist] 20 mcg INHALATION RT-BID nebu Budesonide [Pulmicort] 1 mg INHALATION RT-BID ml Continue Atorvastatin [Lipitor] 40 mg PO HS Aspirin EC [Ecotrin Low Dose] 81 mg PO DAILY@0800 Albuterol Inhaler [Ventolin Hfa Inhaler] 2 puff INHALATION RT-QID PRN #1 puff PRN Reason: Shortness Of Breath Or Wheezing metFORMIN HCL 1,000 mg PO BID #28 tab Lisinopril [Zestril] 2.5 mg PO DAILY Paliperidone IM [Invega Sustenna] 234 mg IM QMONTH Fluticasone Nasal [place] [Flonase Nasal [place]] 2 spr EA NOSTRIL DAILY PRN PRN Reason: Allergy Symptoms Divalproex ER [Depakote ER] 1,000 mg PO BID@799,1999 Allopurinol [Zyloprim] 100 mg PO BID@799,1999 Ergocalciferol (Vitamin D2) [Vitamin D2] 50,000 unit PO MO Torsemide [Demadex] 40 mg PO BID@0700,1600 Levothyroxine Sodium [Synthroid] 200 mcg PO DAILY Discharge Medication List Aspirin EC [Ecotrin Low Dose] 81 mg PO DAILY@0800 07/30/19 [History] Atorvastatin [Lipitor] 40 mg PO HS 07/30/19 [History] Albuterol Inhaler [Ventolin Hfa Inhaler] 2 puff INHALATION RT-QID PRN #1 puff 08/19/19 [Rx] metFORMIN HCL 1,000 mg PO BID #28 tab 08/19/19 [Rx] Allopurinol [Zyloprim] 100 mg PO BID@799,199901/10/20 [History] Divalproex ER [Depakote ER] 1,000 mg PO BID@799,199901/10/20 [History] Ergocalciferol (Vitamin D2) [Vitamin D2] 50,000 unit PO MO 01/10/20 [History] Fluticasone Nasal [place] [Flonase Nasal [place]] 2 spr EA NOSTRIL DAILY PRN 01/10/20 [History] Levothyroxine Sodium [Synthroid] 200 mcg PO DAILY 01/10/20 [History] Lisinopril [Zestril] 2.5 mg PO DAILY 01/10/20 [History] Paliperidone IM [Invega Sustenna] 234 mg IM QMONTH 01/10/20 [History] Torsemide [Demadex] 40 mg PO BID@0700,1600 01/10/20 [History] Amoxic-Pot Clav 875-125Mg [Augmentin 875-125] 1 tab PO Q12HR 7 Days #14 tablet 01/13/20 [Rx] Budesonide [Pulmicort] 1 mg INHALATION RT-BID ml 01/13/20 [Rx] Formoterol Fumarate [Perforomist] 20 mcg INHALATION RT-BID nebu 01/13/20 [Rx] INSULIN ASPART (NovoLOG) [NovoLOG (formulary)] 0 unit SQ ACHS vial 01/13/20 [Rx] Ipratropium-Albuterol Nebulize [Duoneb 0.5 mg-3 mg/3 ml Soln] 3 ml INHALATION RT-Q4H ml 01/13/20 [Rx] Tamsulosin [Flomax] 0.4 mg PO PC-BRKFST cap.er.24h 01/13/20 [Rx] Follow up Appointment(s)/Referral(s): Eriberto Rubio MD [REFERRING] - 1-2 days Activity/Diet/Wound Care/Special Instructions: PH Medi Activity as tolerated Continue with oxygen therapy Continue to monitor blood sugars before meals at bedtime and treat accordingly with sliding scale Continue with antibiotics for 1 week and then may discontinue Continue with prednisone taper Follow-up with primary care provider upon discharge Follow-up with pulmonary in the outpatient setting Repeat labs in 2-3 days Continue with consistent carb diet Continue working with physical therapy Continue with BiPAP at night with settings of 12/6 and 45% Discharge Disposition: TRANSFER TO SNF/ECF
[2020-01-13 14:33] VITALS: BP 130/63; RESP 17; TEMP 97.6
--- NOTE | 2020-01-13 16:16 | PN ---
PROGRESS NOTE PULMONARY/CRITICAL CARE PROGRESS NOTE: DATE OF SERVICE: 01/13/2020 This is a 59-year-old male who was admitted back on January 09. His admission diagnosis included acute hypoxemic respiratory failure secondary to diastolic CHF and COPD exacerbation, complicated by Haemophilus influenzae. He also has a history of acute hypercapnic respiratory failure, chronic and ongoing tobacco dependence, CAD, with previous stent placement, hypertension, hypothyroidism, schizophrenia and diabetes. The patient is doing much better. He is much less short of breath. The patient denies any chest pain or chest discomfort. Not coughing up much or any phlegm. He still has some chest congestion. He is short of breath on exertion. He has never been seen by a car repairer in the past. PHYSICAL EXAMINATION: VITAL SIGNS: His vital signs are reviewed. His temperature is 97.6, heart rate 90, respiratory rate 17, blood pressure 130/63, mean 85. Two-liter saturation 93%. GENERAL APPEARANCE: He appears in no acute distress. HEENT EXAMINATION: Grossly unremarkable. Mucous membranes are moist. NECK: Supple. Full range of motion. No adenopathy. Neck veins are flat. CARDIOVASCULAR EXAMINATION: Regular rhythm and rate. S1, S2 normal. No S3, S4 or murmur. LUNGS: Coarse expiratory rhonchi and wheezes. Breath sounds are diminished. There is prolongation on forced maneuver. Adventitious lung sounds are improved but are more prominent on forced maneuver. ABDOMEN: Obese. Bowel sounds are heard. EXTREMITIES: Intact. Mild edema. SKIN: Without rash. NEUROLOGIC: Neurologic examination is brief but nonfocal. LABS/IMAGING: Reviewed. Sodium 128, potassium 5.4, chloride 86, CO2 35, anion gap 7. BUN and creatinine were 41 and 0.94. Calcium 8.2. Microbiology shows evidence of Haemophilus influenzae in the sputum. His most recent chest x-ray done yesterday shows improved aeration in all lung hung with minimal fluid overload residually. There is also some bibasilar atelectasis with small bilateral effusions. Medications are reviewed. ASSESSMENT: 1. Acute hypoxemic respiratory failure, multifactorial, in part related to acute exacerbation of the patient's known history of diastolic congestive heart failure as well as chronic obstructive pulmonary disease exacerbation complicated by Haemophilus influenzae tracheobronchitis. 2. Acute hypercapnic respiratory failure secondary to the above. 3. Chronic and ongoing tobacco dependence. 4. Obesity. 5. Coronary artery disease with previous stent placement. 6. Benign essential hypertension. 7. Hypothyroidism. 8. History of schizophrenia. 9. Diabetes mellitus. PLAN: The patient is doing better. Will continue to follow. His medications are reviewed. The patient should be checked to see whether or not he will need oxygen on discharge when and if he is discharged. He may need oxygen only on exertion. Again the patient is counseled about the importance of smoking cessation and weight loss. We will continue to follow. MMODL / IJN: [id number] /
--- NOTE | 2020-01-15 08:23 | CDI ---
Documentation Clarification Form Date: 01/15/20 From: Johanna Fay Phone: If you have a question about this query, please contact Nereyda Rojas, Rn Mds at [phone] between 8am and 5pm. Admit Date: 01/10/20 Discharge Date:01/13/20 Patient Name: Dario Clifford Visit Number: [id number] ATTENTION: The Clinical Documentation Specialists (CDI) and [facility] Coding Staff appreciate your assistance in clarifying documentation. Please respond to the clarification below the line at the bottom and electronically sign. The CDI & [facility] Coding staff will review the response and follow-up if needed. Please note: Queries are made part of the Legal Health Record. If you have any questions, please contact the author of this message via ITS. Dear Dr. Degroot Exacerbation of suspected systolic versus diastolic CHF is documented in the H&P, pulmonary consult note, discharge summary, your progress notes and Dr. Javed's progress notes. History/Risk Factors: CHF, CAD, hypertension Clinical Indicators: Shortness of breath, cough congestion VS/Pulse OX: T. 98.1, P. 94, R. 18, BP 120/66, Pulse Ox. 91 BNP: 429 Echocardiogram Results: LV systolic function is normal with an EF between 60 - 65% Chest X Ray: Moderate right pleural effusion increased compared to last exam. This could relate to mild chronic congestive heart failure. Right lower lobe pneumonia not excluded. Treatment: IV Lasix 40 mg Q 12 In your professional opinion, can you please clarify the type of CHF if known? Systolic Heart Failure: Diastolic Heart Failure: Systolic & Diastolic Heart Failure: Unable to Determine Other, please specify Diastolic Heart Failure: MTDD
== END 2020-01-13 15:28 | DRG 291 ==
LOC: EC 21:33 → 6NMEDSUR 01-10 00:42 → 3SCARD 01-10 14:46 → 6NMEDSUR 01-11 19:21
PROVIDERS: ADMIT Hospitalist; ATTEND Hospitalist
DX: I11.0 Hypertensive heart disease with heart failure (principal); J18.9 Pneumonia, unspecified organism; J96.01 Acute respiratory failure with hypoxia; J44.0 Chronic obstructive pulmonary disease with (acute) lower respiratory infection; J44.1 Chronic obstructive pulmonary disease with (acute) exacerbation; J98.11 Atelectasis; I50.33 Acute on chronic diastolic (congestive) heart failure; E03.9 Hypothyroidism, unspecified; F17.210 Nicotine dependence, cigarettes, uncomplicated; E11.9 Type 2 diabetes mellitus without complications; E66.01 Morbid (severe) obesity due to excess calories; E78.5 Hyperlipidemia, unspecified; I25.10 Atherosclerotic heart disease of native coronary artery without angina pectoris; G47.30 Sleep apnea, unspecified; R33.9 Retention of urine, unspecified; F20.9 Schizophrenia, unspecified; Z79.82 Long term (current) use of aspirin; Z79.84 Long term (current) use of oral hypoglycemic drugs; Z79.890 Hormone replacement therapy; Z79.899 Other long term (current) drug therapy; Z95.1 Presence of aortocoronary bypass graft; Z95.5 Presence of coronary angioplasty implant and graft; Z87.01 Personal history of pneumonia (recurrent); Z91.14 Patient's other noncompliance with medication regimen; Z82.5 Family history of asthma and other chronic lower respiratory diseases
CPT/HCPCS: 36415; 36600; 71045; 71046; 80048; 80053; 82140; 82805; 83036; 83605; 83880; 84484; 85025; 85610; 85730; 86140; 87040; 87070; 87205; 87502; 93005; 93306; 94640; 94660; 94760; 96361; 96365; 96375; 99285

== ENCOUNTER → 2020-02-18 | Outpatient (CLI) | payer MEDICARE, OTHER ==
[2020-02-18 16:07] LABS: Anion Gap 14.1 mmol/L (4.00-12.00); Carbon Dioxide 32.9 mmol/L (21.6-31.8); Potassium 4.4 mmol/L (3.5-5.5); Valproic Acid (Depakene) 78.4 ug/mL (50.0-100.0)
== END | disposition home or self-care (01) ==
LOC: LABWHC1 11:23
PROVIDERS: ATTEND Nurse Practitioner Psychiatric/Mental Health
DX: F25.0 Schizoaffective disorder, bipolar type (principal); Z79.899 Other long term (current) drug therapy
CPT/HCPCS: 36415; 80051; 80164

== ENCOUNTER 2020-04-29 23:26 | Emergency (ER) | payer MEDICARE, OTHER ==
[2020-04-29 23:51] VITALS: BP 116/72; PULSE 104; RESP 18; TEMP 98.4
[2020-04-30] MEDS ORDERED: ACET/COD 300 MG/30 MG STARTER PACK 6 TAB BTL PO STA (00:01)
[2020-04-30] MEDS ORDERED: DEXAMETHASONE 4 MG TAB PO STA (00:01)
[2020-04-30] MEDS ORDERED: Acetaminophen-Codeine 300-30mg TAB PO STA (00:01)
[2020-04-30] MEDS ORDERED: KETOROLAC 60 MG/2 ML VIAL IM STA (00:01)
--- NOTE | 2020-04-30 00:04 | ED ---
Extremity Problem HPI - General Chief complaint: Extremity Problem,Nontraumatic Stated complaint: Foot cramping Time Seen by Provider: 04/29/20 23:52 Source: patient, RN notes reviewed, old records reviewed Mode of arrival: ambulatory Limitations: no limitations - History of Present Illness Initial comments: This is a 58-year-old male DF for evaluation patient with us today for evaluation of bilateral foot pain. Patient has bilateral foot pain and swelling tingling. She has increased gout in both of his feet he is able ambulate without difficulty has no trauma. MD Complaint: extremity pain, joint swelling (Bilateral feet), joint pain -: days(s) Location: left, right -: Yes arthralgia Radiation: proximal Severity scale (1-10): 3 Quality: aching Consistency: intermittent Improves with: nothing Worsens with: nothing - Related Data Home Medications Medication Instructions Recorded Confirmed Aspirin EC [Ecotrin Low Dose] 81 mg PO DAILY@0800 07/30/19 01/10/20 Atorvastatin [Lipitor] 40 mg PO HS 07/30/19 01/10/20 Allopurinol [Zyloprim] 100 mg PO BID@0800,199901/10/20 01/10/20 Divalproex ER [Depakote ER] 1,000 mg PO BID@0800,199901/10/20 01/10/20 Ergocalciferol (Vitamin D2) 50,000 unit PO MO 01/10/20 01/10/20 [Vitamin D2] Fluticasone Nasal [place] [Flonase 2 spr EA NOSTRIL DAILY PRN 01/10/20 01/10/20 Nasal [place]] Levothyroxine Sodium [Synthroid] 200 mcg PO DAILY 01/10/20 01/10/20 Lisinopril [Zestril] 2.5 mg PO DAILY 01/10/20 01/10/20 Paliperidone IM [Invega Sustenna] 234 mg IM QMONTH 01/10/20 01/10/20 Torsemide [Demadex] 40 mg PO BID@0700,1600 01/10/20 01/10/20 Previous Rx's Medication Instructions Recorded Albuterol Inhaler (Mhu) [Ventolin 2 puff INHALATION RT-QID PRN #1 08/19/19 Hfa Inhaler (Mhu)] puff metFORMIN HCL 1,000 mg PO BID #28 tab 08/19/19 Amoxic-Pot Clav 875-125Mg 1 tab PO Q12HR 7 Days #14 tablet 01/13/20 [Augmentin 875-125] Budesonide [Pulmicort] 1 mg INHALATION RT-BID ml 01/13/20 Formoterol Fumarate [Perforomist] 20 mcg INHALATION RT-BID nebu 01/13/20 INSULIN ASPART (NovoLOG) [NovoLOG 0 unit SQ ACHS vial 01/13/20 (formulary)] Ipratropium-Albuterol Nebulize 3 ml INHALATION RT-Q4H ml 01/13/20 [Duoneb 0.5 mg-3 mg/3 ml Soln] Tamsulosin [Flomax] 0.4 mg PO PC-BRKFST cap.er.24h 01/13/20 Indomethacin [Indocin] 50 mg PO TID #15 capsule 04/30/20 Allergies Allergy/AdvReac Type Severity Reaction Status Date / Time No Known Allergies Allergy Verified 04/29/20 23:50 Review of Systems ROS Statement: Those systems with pertinent positive or pertinent negative responses have been documented in the HPI. ROS Other: All systems not noted in ROS Statement are negative. Past Medical History Past Medical History: Coronary Artery Disease (CAD), Chest Pain / Angina, COPD, Diabetes Mellitus, Hyperlipidemia, Hypertension, Pneumonia, Sleep Apnea/CPAP/BIPAP, Thyroid Disorder Additional Past Medical History / Comment(s): hernia bipolar, schizophrenia, History of Any Multi-Drug Resistant Organisms: None Reported Past Surgical History: Coronary Bypass/CABG, Orthopedic Surgery Past Psychological History: Bipolar, Schizophrenia Smoking Status: Current every day smoker Past Alcohol Use History: None Reported Past Drug Use History: None Reported - Past Family History Father History Unknown: Yes Family Medical History: Dementia Mother History Unknown: Yes Family Medical History: COPD General Exam Limitations: no limitations General appearance: alert, in no apparent distress Head exam: Present: atraumatic, normocephalic, normal inspection Eye exam: Present: normal appearance, PERRL, EOMI. Absent: scleral icterus, conjunctival injection, periorbital swelling ENT exam: Present: normal exam, mucous membranes moist Neck exam: Present: normal inspection. Absent: tenderness, meningismus, lymphadenopathy Respiratory exam: Present: normal lung sounds bilaterally. Absent: respiratory distress, wheezes, rales, rhonchi, stridor Cardiovascular Exam: Present: regular rate, normal rhythm, normal heart sounds. Absent: systolic murmur, diastolic murmur, rubs, gallop, clicks GI/Abdominal exam: Present: soft, normal bowel sounds. Absent: distended, tenderness, guarding, rebound, rigid Extremities exam: Present: normal inspection, full ROM, normal capillary refill. Absent: tenderness, pedal edema, joint swelling, calf tenderness Back exam: Present: normal inspection Neurological exam: Present: alert, oriented X3, CN II-XII intact Psychiatric exam: Present: normal affect, normal mood Skin exam: Present: warm, dry, intact, normal color. Absent: rash Course Vital Signs 04/29/20 04/30/20 23:45 00:21 Temperature 98.4 F 98.4 F Pulse Rate 104 H 104 H Respiratory 18 18 Rate Blood Pressure 116/72 116/72 O2 Sat by Pulse 91 L 91 L Oximetry - Reevaluation(s) Reevaluation #1: Medical record is reviewed patient symptoms feel better here in the ER is able to ambulate without difficulty Medical Decision Making - Medical Decision Making 60 male presented today for bilateral gouty arthritis no current pain. Patient given medication for pain and symptom management home Disposition Clinical Impression: Morbid obesity, Gouty arthritis of both feet Disposition: HOME SELF-CARE Condition: Good Instructions (If sedation given, give patient instructions): Gout (ED) Prescriptions: Indomethacin [Indocin] 50 mg PO TID #15 capsule Is patient prescribed a controlled substance at d/c from ED?: No Referrals: Srini Lacey NPC [Primary Care Provider] - 1-2 days
== END 2020-04-30 00:22 | disposition home or self-care (01) ==
LOC: EC 23:26
DX: M10.072 Idiopathic gout, left ankle and foot (principal); M10.071 Idiopathic gout, right ankle and foot; E66.01 Morbid (severe) obesity due to excess calories; Z68.43 Body mass index [BMI] 50.0-59.9, adult; I25.119 Atherosclerotic heart disease of native coronary artery with unspecified angina pectoris; J44.9 Chronic obstructive pulmonary disease, unspecified; I10 Essential (primary) hypertension; E78.5 Hyperlipidemia, unspecified; E11.9 Type 2 diabetes mellitus without complications; E07.9 Disorder of thyroid, unspecified; F17.200 Nicotine dependence, unspecified, uncomplicated; Z79.82 Long term (current) use of aspirin; Z79.890 Hormone replacement therapy; Z79.899 Other long term (current) drug therapy; Z95.1 Presence of aortocoronary bypass graft; Z99.89 Dependence on other enabling machines and devices
CPT/HCPCS: 99283; 96372; J8540; J1885

== ENCOUNTER 2020-06-25 22:10 | Emergency (ER) | payer MEDICARE, OTHER ==
[2020-06-25 22:20] VITALS: RESP 18
[2020-06-25 23:21] LABS: Amphetamine Screen,Urine Not Detected (NotDetected); Barbiturate Screen,Urine Not Detected (NotDetected); Benzodiazepines Screen,Urine Not Detected (NotDetected); Cocaine Screen,Urine Not Detected (NotDetected); Methadone Screen, Urine Not Detected (NotDetected); Opiate Screen,Urine Not Detected (NotDetected); Oxycodone Screen, Urine Not Detected (NotDetected); Phencyclidine Screen,Urine Not Detected (NotDetected); Tricyclic Antidepressant,Urine Not Detected (NotDetected); Urn Cannabinoid Scrn Not Detected (NotDetected)
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
[2020-06-26 00:56] VITALS: BP 106/62; PULSE 97; TEMP 98.2
== END 2020-06-26 01:00 | disposition home or self-care (01) ==
LOC: EC 22:10
DX: F43.20 Adjustment disorder, unspecified (principal); I10 Essential (primary) hypertension; I25.110 Atherosclerotic heart disease of native coronary artery with unstable angina pectoris; G47.30 Sleep apnea, unspecified; E07.9 Disorder of thyroid, unspecified; E78.5 Hyperlipidemia, unspecified; F31.9 Bipolar disorder, unspecified; F20.9 Schizophrenia, unspecified; F17.200 Nicotine dependence, unspecified, uncomplicated; Z79.82 Long term (current) use of aspirin; Z79.890 Hormone replacement therapy; Z79.899 Other long term (current) drug therapy; Z99.89 Dependence on other enabling machines and devices; Z59.0 Homelessness
CPT/HCPCS: 80306; 82075; 99284

== ENCOUNTER → 2020-11-22 | Outpatient (CLI) | payer MEDICARE, OTHER ==
--- NOTE | 2020-11-22 18:25 | CONS ---
CONSULTATION REASON FOR CONSULTATION: Sleep apnea. This is a 60-year-old male patient who lives in an [facility] home. The patient used to live in the [facility] prior to that. He underwent a sleep study and sleep evaluation back then through one of the sleep centers around [place], and the patient was given a Dream Station, which is currently running at a CPAP pressure of 13 cm of water. The patient states that he was benefitting from the treatment; however, he has not been able to achieve adequate compliancy on his CPAP. Based on that, he did not have his machine paid off by insurance. For now, there is a standing balance on the CPAP unit through [facility]. Nevertheless, the patient is in financial trouble and has not been able to pay any of these bills. He wants the treatment to keep on going, knowing that he has benefitted from the treatment. He does have an Joann View full-face mask which is quite old, and the inner mask is ripped off and it is leaking. He does have typical features of obstructive sleep apnea, including loud snoring, sleep fragmentation, frequent nocturnal arousals and excessive hypersomnia or sleepiness. His typical sleep pattern is between 9 p.m. and 3 a.m. in the morning. He gets around 6 hours of sleep and he takes naps during the day. The patient is taking approximately 2 or 3 naps. His weight is up, and he is currently weighing around 360 pounds. Overall he has gained around 80 pounds over these past 10 years. These naps are quite long naps; they may be up to 2-hour naps. No sleep paralysis. No hallucinations. No cataplexy. PAST MEDICAL HISTORY: 1. Obesity. 2. Obstructive sleep apnea. 3. Chronic anxiety and depression and bipolar disorder/schizophrenia. 4. Diabetes mellitus. 5. Hyperlipidemia. 6. Hypertension. 7. Coronary artery disease with previous cardiac stent placement. PAST SURGICAL HISTORY: Past surgical history includes insertion of a stent, probably in his coronary artery, although this is not absolutely sure. DRUG ALLERGIES: NOT KNOWN. OUTPATIENT MEDICATION LIST: His outpatient medication list includes: 1. Aspirin 81 mg p.o. daily. 2. Lipitor 40 mg p.o. daily. 3. Ventolin rescue inhaler on an as-needed basis. 4. Metformin 1 gram twice a day. 5. Allopurinol 100 mg p.o. b.i.d. 6. Vitamin D2 50,000 units daily. 7. Flonase nose spray. 8. Levothyroxine 200 mcg p.o. daily. 9. Zestril 2.5 mg p.o. daily. 10.Invega 234 mg IM q. month. 11.Demadex 40 mg p.o. twice a day. SOCIAL HISTORY: The patient lives in an [facility] home. No history of alcoholism. No history of IV drug use. Smoker of one pack of cigarettes a day. FAMILY HISTORY: Not known. Mother had apparently dementia, and COPD also run in the family. REVIEW OF SYSTEMS: Fourteen-point review of systems was done, and the positive findings were all mentioned above in the history of present illness. He is excessively tired and sleepy and he has no exposure to COVID-19. His [place] score is 13. PHYSICAL EXAMINATION: VITAL SIGNS: BP is 96/62, pulse 90, respirations 16, temperature 98.7. Height is 5 feet 7 inches. Weight is 286. Auxvasse score is 13. Neck size is 18 inches and BMI is 44.9, saturation 94% on room air. GENERAL APPEARANCE: Calm, comfortable. No acute distress. HEAD: Atraumatic, normocephalic. NECK: Supple. No JVD. No goiter or neck masses. Mallampati class IV. LUNGS: Clear to auscultation. HEART: Heart sounds are regular rate and rhythm. Normal S1, S2. No S3, S4. No murmurs. ABDOMEN: Soft, nontender. No organomegaly. EXTREMITIES: No edema. No cyanosis or clubbing. NEUROLOGIC: Awake and alert. There is no focal neurological deficit. PSYCHIATRIC: Positive for history of schizophrenia. IMPRESSION: 1. Chronic hypersomnia with an Auxvasse score of 13 related to obstructive sleep apnea. The patient is not receiving any treatment for now. 2. Obstructive sleep apnea. The patient currently has a Dream Station CPAP unit which is adjusted at the pressure of 13 cm of water in addition to an AmaraView full-face mask, large size. No compliance data on his machine, as the patient is not utilizing his machine due to lack of any appropriate equipment, including the mask. 3. Coronary artery disease with previous coronary stent insertion and possible bypass. 4. Hypertension. 5. Hypothyroidism. 6. Diabetes mellitus. 7. History of chronic anxiety/depression/schizophrenia. 8. Morbid obesity with a BMI of 44.9. 9. History of smoking. PLAN: 1. The patient is coming in for CPAP therapy. He has a functional machine and I suggested him going back on his Dream Station at the pressure of 13 cm of water. 2. I offered the patient two masks. One of them was an Joann View large size and the other one was an AirFit F30 medium-sized full-face mask. 3. The mask site was checked in the sleep center and it was good. As such, we will initiate the treatment and the patient will have a compliance check with me in 4-6 months' time. 4. Encourage weight loss. 5. Optimize sleep hygiene measures. 6. Optimize chronic cardiovascular risk factors, including smoking. 7. He is an [facility] resident. I discussed the case with his caregiver. I will see him back in 6 months' time in followup. JANES / CYNDIE: [id number] /
== END | disposition home or self-care (01) ==
LOC: SLEEP 13:44
PROVIDERS: ATTEND Internal Medicine Critical Care Medicine
DX: G47.33 Obstructive sleep apnea (adult) (pediatric) (principal); I25.10 Atherosclerotic heart disease of native coronary artery without angina pectoris; I10 Essential (primary) hypertension; E03.9 Hypothyroidism, unspecified; E11.9 Type 2 diabetes mellitus without complications; E66.01 Morbid (severe) obesity due to excess calories; Z87.891 Personal history of nicotine dependence; Z68.41 Body mass index [BMI] 40.0-44.9, adult; Z86.59 Personal history of other mental and behavioral disorders; Z79.82 Long term (current) use of aspirin; Z79.891 Long term (current) use of opiate analgesic; Z79.899 Other long term (current) drug therapy; Z79.890 Hormone replacement therapy; Z95.5 Presence of coronary angioplasty implant and graft
CPT/HCPCS: 99211

== ENCOUNTER → 2021-05-23 | Outpatient (CLI) | payer MEDICARE, OTHER ==
--- NOTE | 2021-05-23 13:26 | P.PN ---
Subjective Progress Note Date: 05/23/21 61-year-old male patient with used to live in an [facility] home in [facility] currently being seen in the sleep center for a follow-up regarding his obstructive sleep apnea. His last evaluation was done in November 2020. At that time the patient was checked and he had a dream station with a CPAP pressure of 13 cm of water. I switched him around to airfit F30 fullface mask and I asked the patient to continue using his CPAP machine and same level of pressure. He has multiple medical problems and comorbidities. He is known to be morbidly obese and has generalized anxiety/depression/bipolar disorder/schizophrenia in addition to diabetes mellitus and coronary artery disease with previous insertion of coronary stents, hypertension, hyperlipidemia, diabetes mellitus and hypothyroidism. He is a chronic smoker also. On today's evaluation, I checked the compliance data on the machine. Over the past 30 days, the patient has been utilizing his machine on average of 3.1 hours. He is in the process of moving his compliant CPAP based on that went down. He is in excellent mask fit of 98%. His AHI 1 tube is down to 1.2. He continues to use the same mask interface. His weight has remained stable at 24 and there is no recent weight gain or weight loss. Essentially obtaining his supplies regarding his CPAP unit. No other significant events otherwise. He isn't somnolent and sleepy. He is still smoking. His current upper scor is at 8 medications include allopurinol 100 mg by mouth daily, aspirin 81 mg by mouth daily, Depakote x-ray are 5 mg twice a day, ibuprofen an as-needed basis, Lipitor 40 mg by mouth daily, lisinopril 5 mg by mouth daily, Synthroid 200 g by mouth daily, Flomax 0.4 mg by mouth daily, torsemide 20 mg by mouth daily and vitamin B12. Objective - Exam GENERAL EXAM: Alert, obese, 61-year-old male patient on RA O2, his blood pressure is currently at 105/65, pulse of 81, respiration of 16, temperature of 92, weight of 284, body mass index of 44.5, and saturation of 97% on room air oxygen. HEAD: Normocephalic/atraumatic. EYES: Normal reaction of pupils, equal size. Conjunctiva pink, sclera white. NOSE: Clear with pink turbinates. THROAT: No erythema or exudates. NECK: No masses, no JVD, no thyroid enlargement, no adenopathy. CHEST: No chest wall deformity. Symmetrical expansion. LUNGS: Equal air entry with scattered rhonchi CVS: Regular rate and rhythm, normal S1 and S2, no gallops, no murmurs, no rubs ABDOMEN: Soft, obese, nontender. No hepatosplenomegaly, normal bowel sounds, no guarding or rigidity. EXTREMITIES: No clubbing, no edema, no cyanosis, 2+ pulses and upper and lower extremities. MUSCULOSKELETAL: Muscle strength and tone normal. SPINE: No scoliosis or deformity SKIN: No rashes CENTRAL NERVOUS SYSTEM: No focal deficits, tone is normal in all 4 extremities. PSYCHIATRIC: Alert and oriented -3. Appropriate affect. Intact judgment and insight. Assessment and Plan Plan: 1 HEATHER, being treated successfully with a CPAP pressure of 13 cm of water. 2 Diastolic congestive heart failure, 3 COPD 4 Coronary artery disease with previous stent placement 5 Hypertension 6 Hypothyroidism 7 Schizophrenia 8 Diabetes mellitus 9 obesity with a BMI of 44.5 10 hyperuricemia 11 chronic anxiety/depression/bipolar disorder Plan Continue CPAP therapy at 13 cm of water. we'll keep the patient on same mask interface for now and the patient is using airfit F30 full facemask Ialong with that, we will reorder the shelters and the rest of the supplies including tubing. Encourage weight loss. Optimizedcomorbidities and implement good sleep hygiene measures. His machine is functional for now. I will see him back in a year time in follow-up.
== END | disposition home or self-care (01) ==
LOC: SLEEP 12:55
PROVIDERS: ATTEND Internal Medicine Critical Care Medicine
DX: G47.33 Obstructive sleep apnea (adult) (pediatric) (principal); I11.0 Hypertensive heart disease with heart failure; I25.10 Atherosclerotic heart disease of native coronary artery without angina pectoris; J44.9 Chronic obstructive pulmonary disease, unspecified; E03.9 Hypothyroidism, unspecified; F20.9 Schizophrenia, unspecified; E11.9 Type 2 diabetes mellitus without complications; E79.0 Hyperuricemia without signs of inflammatory arthritis and tophaceous disease; E78.5 Hyperlipidemia, unspecified; F31.9 Bipolar disorder, unspecified; F41.8 Other specified anxiety disorders; F17.200 Nicotine dependence, unspecified, uncomplicated; E66.9 Obesity, unspecified; Z68.41 Body mass index [BMI] 40.0-44.9, adult; Z79.82 Long term (current) use of aspirin; Z79.899 Other long term (current) drug therapy; Z79.890 Hormone replacement therapy; Z95.5 Presence of coronary angioplasty implant and graft

== ENCOUNTER 2023-03-13 20:52 | Inpatient (IN) | payer MEDICARE, OTHER ==
[2023-03-13] MEDS ORDERED: HEPARIN SODIUM 1,000 UN/ML (10ML VL) IV PRN (21:43)
[2023-03-13] MEDS ORDERED: HEPARIN SOD,PORK IN 0.45% NACL 25,000 UNIT in 0.45% NACL 1 250ML.BAG IV SCH (21:45)
[2023-03-13 22:26] LABS: Basophils % (A) 0 %; Eosinophils % (A) 1 %; HCT 45.1 % (39.0-53.0); Lymphocytes # (A) 0.7 k/uL (1.0-4.8); Lymphocytes % (A) 12 %; MCH 27.8 pg (25.0-35.0); MCV 89.8 fL (80.0-100.0); Mean Platelet Volume 7.2; Monocytes # (A) 0.2 k/uL (0-1.0); Monocytes % (A) 3 %; Neutrophils # (A) 4.8 k/uL (1.3-7.7); Neutrophils % (A) 83 %; Platelet Count 255 k/uL (150-450); RBC 5.03 m/uL (4.30-5.90); RDW 14.1 % (11.5-15.5); WBC 5.7 k/uL (3.8-10.6)
[2023-03-13 22:33] LABS: Partial Thromboplastin Time 24.7 sec (22.0-30.0); Prothrombin Time 10.7 sec (9.0-12.0)
[2023-03-13 22:35] LABS: ALT 16 U/L (4-49); AST 17 U/L (17-59); African American GFR (CKD) >90 (>60 ml/min/1.73 sqM); Albumin 3.3 g/dL (3.5-5.0); Alkaline Phosphatase 47 U/L (38-126); Anion Gap 5 mmol/L; Blood Urea Nitrogen 18 mg/dL (9-20); Calcium 8.2 mg/dL (8.4-10.2); Carbon Dioxide 37 mmol/L (22-30); Chloride 89 mmol/L (98-107); Glucose 169 mg/dL (74-99); Non-African American GFR(CKD) >90 (>60 ml/min/1.73 sqM); Potassium 4.9 mmol/L (3.5-5.1); Sodium 131 mmol/L (137-145); Total Bilirubin 0.3 mg/dL (0.2-1.3); Total Protein 6.1 g/dL (6.3-8.2)
--- NOTE | 2023-03-13 22:46 | ED ---
General Adult HPI - General Chief complaint: Shortness of Breath Stated complaint: CHF, chest pain Time Seen by Provider: 03/13/23 21:07 Source: EMS, RN notes reviewed, old records reviewed Mode of arrival: EMS Limitations: no limitations - History of Present Illness Initial comments: 62 yo male who presented as transfer from outside hospital. Patient was seen and evaluated for progressive dyspnea over the past 2 or 3 weeks. No reported fever. No chest pain. Patient does have a history of congestive heart failure and is a current smoker. Patient had been noted to have an elevated BNP as well as a mildly elevated troponin. He was transferred to this institution for further evaluation including cardiology consultation. Patient has no complaints time my evaluation. - Related Data Home Medications Medication Instructions Recorded Confirmed Aspirin EC [Ecotrin Low Dose] 81 mg PO DAILY 07/30/19 03/13/23 Atorvastatin [Lipitor] 40 mg PO HS 07/30/19 03/13/23 Divalproex ER [Depakote ER] 1,000 mg PO BID 01/10/20 03/13/23 Levothyroxine Sodium [Synthroid] 200 mcg PO DAILY 01/10/20 03/13/23 Torsemide [Demadex] 40 mg PO DAILY 01/10/20 03/13/23 allopurinoL [Zyloprim] 100 mg PO BID 01/10/20 03/13/23 Ascorbic Acid [Vitamin C] 500 mg PO BID 03/13/23 03/13/23 Chlorpheniramine/Dextromethorp 1 tab PO Q6H PRN 03/13/23 03/13/23 [Coricidin Hbp Cough & Cold Tab] Cholecalciferol [Vitamin D3 (125 125 mcg PO DAILY 03/13/23 03/13/23 Mcg = 5000 Iu)] Cyanocobalamin (Vitamin B-12) 1,000 mcg PO DAILY 03/13/23 03/13/23 [Vitamin B-12] Tamsulosin [Flomax] 0.4 mg PO DAILY 03/13/23 03/13/23 Torsemide [Demadex] 20 mg PO DAILY PRN 03/13/23 03/13/23 Zinc Sulfate [Orazinc] 220 mg PO DAILY 03/13/23 03/13/23 lisinopriL [Zestril] 5 mg PO DAILY 03/13/23 03/13/23 Allergies Allergy/AdvReac Type Severity Reaction Status Date / Time No Known Allergies Allergy Verified 03/13/23 22:29 Review of Systems ROS Statement: Those systems with pertinent positive or pertinent negative responses have been documented in the HPI. ROS Other: All systems not noted in ROS Statement are negative. Past Medical History Past Medical History: Coronary Artery Disease (CAD), Chest Pain / Angina, COPD, Diabetes Mellitus, Hyperlipidemia, Hypertension, Pneumonia, Sleep Apnea/CPAP/BIPAP, Thyroid Disorder Additional Past Medical History / Comment(s): hernia bipolar, schizophrenia, History of Any Multi-Drug Resistant Organisms: None Reported Past Surgical History: Coronary Bypass/CABG, Orthopedic Surgery Past Psychological History: Bipolar, Schizophrenia Smoking Status: Current every day smoker Past Alcohol Use History: None Reported Past Drug Use History: None Reported - Past Family History Father History Unknown: Yes Family Medical History: Dementia Mother History Unknown: Yes Family Medical History: COPD General Exam Limitations: no limitations General appearance: alert, in no apparent distress Head exam: Present: atraumatic, normocephalic Eye exam: Present: normal appearance, PERRL ENT exam: Present: normal exam Neck exam: Present: normal inspection. Absent: tenderness, meningismus Respiratory exam: Present: rales, decreased breath sounds. Absent: respiratory distress Cardiovascular Exam: Present: regular rate, normal rhythm GI/Abdominal exam: Present: soft. Absent: distended, tenderness, guarding Extremities exam: Present: pedal edema Neurological exam: Present: alert, oriented X3, CN II-XII intact. Absent: motor sensory deficit Psychiatric exam: Present: normal affect, normal mood Skin exam: Present: warm, dry, intact. Absent: cyanosis, diaphoretic Course Vital Signs 03/13/23 03/13/23 21:32 23:20 Temperature 98.9 F 98.0 F Pulse Rate 87 85 Respiratory 20 18 Rate Blood Pressure 129/80 135/82 O2 Sat by Pulse 95 95 Oximetry Medical Decision Making - Medical Decision Making Was pt. sent in by a medical professional or institution (, PA, [employer], urgent care, hospital, or correction...) When possible be specific @ -[No] Did you speak to anyone other than the patient for history (EMS, parent, family, police, friend...)? What history was obtained from this source @ -[No] Did you review nursing and triage notes (agree or disagree)? Why? @ -[I reviewed and agree with nursing and triage notes] Were old charts reviewed (outside hosp., previous admission, EMS record, old EKG, old radiological studies, urgent care reports/EKG's, correction records)? Report findings @ -Chart review from previous ER visit Differential Diagnosis (chest pain, altered mental status, abdominal pain women, abdominal pain men, vaginal bleeding, weakness, fever, dyspnea, syncope, headache, dizziness, GI bleed, back pain, seizure, CVA, palpatations, mental health, musculoskeletal)? @ -Differential Dyspnea: Coronary syndrome, arrhythmia, tamponade, asthma, COPD, pulmonary embolism, pneumonia, pneumothorax, pulmonary effusion, anaphylaxis, diabetic ketoacidosis, flailed chest, pulmonary contusion, diaphragmatic rupture, anemia, neuromuscular, this is not meant to be an all-inclusive list. EKG interpreted by me (3pts min.). @ -[As above] X-rays interpreted by me (1pt min.). @ -[None done] CT interpreted by me (1pt min.). @ -[None done] U/S interpreted by me (1pt. min.). @ -[None done] What testing was considered but not performed or refused? (CT, X-rays, U/S, labs)? Why? @ -States was ordered shows multiple pulmonary nodules, no definitive pulmonary embolism What meds were considered but not given or refused? Why? @ -[None] Did you discuss the management of the patient with other professionals (professionals i.e. , PA, [employer], lab, RT, psych nurse, social economist, city comptroller, teacher, founder and chief technical officer, briefcase sewer)? Give summary @ -Case discussed with Dr. Chandler who will admit Was smoking cessation discussed for >3mins.? @ -[No] Was critical care preformed (if so, how long)? @ -yes Were there social determinants of health that impacted care today? How? (Homelessness, low income, unemployed, alcoholism, drug addiction, transportation, low edu. Level, literacy, decrease access to med. care, snf, rehab)? @ -[No] Was there de-escalation of care discussed even if they declined (Discuss DNR or withdrawal of care, Hospice)? DNR status @ -[No] What co-morbidities impacted this encounter? (DM, HTN, Smoking, COPD, CAD, Cancer, CVA, ARF, Chemo, Hep., AIDS, mental health diagnosis, sleep apnea, morbid obesity)? @ -Hypertension, CHF, COPD Was patient admitted / discharged? Hospital course, mention meds given and route, prescriptions, significant lab abnormalities, going to OR and other p ertinent info. @ -62 male who was transferred from outside hospital for CHF, elevated troponin. He's had increased dyspnea over the past several weeks. I do suspect a component of COPD as well. Patient had minimally elevated troponin this level will be trended. He was started on heparin at outside hospital will be continued on heparin. Laboratory tests will be repeated. He will be admitted to internal medicine with cardiology on consult. Undiagnosed new problem with uncertain prognosis? @ -[No] Drug Therapy requiring intensive monitoring for toxicity (Heparin, Nitro, Insulin, Cardizem)? @ -[No] Were any procedures done? @ -[No] Diagnosis/symptom? @ -[COPD, CHF, troponin elevated, pulmonary nodule] Acute, or Chronic, or Acute on Chronic? @ -[acute] Uncomplicated (without systemic symptoms) or Complicated (systemic symptoms)? @ -[Complicated Side effects of treatment? @ -[No] Exacerbation, Progression, or Severe Exacerbation? @ -[No] Poses a threat to life or bodily function? How? (Chest pain, [place], [place], pneumonia, PE, COPD, DKA, ARF, appy, cholecystitis, CVA, Diverticulitis, Homicidal, Suicidal, threat to staff... and all critical care pts) @ -[Yes, worsening respiratory failure, hypoxia, cardiopulmonary arrest - Lab Data Result diagrams: 03/13/23 21:57 03/13/23 21:57 Lab Results 03/13/23 03/13/23 03/13/23 Range/Units 21:57 21:57 21:57 WBC 5.7 (3.8-10.6) k/uL RBC 5.03 (4.30-5.90) m/uL Hgb 14.0 (13.0-17.5) gm/dL Hct 45.1 (39.0-53.0) % MCV 89.8 (80.0-100.0) fL MCH 27.8 (25.0-35.0) pg MCHC 31.0 (31.0-37.0) g/dL RDW 14.1 (11.5-15.5) % Plt Count 255 (150-450) k/uL MPV 7.2 Neutrophils % 83 % Lymphocytes % 12 % Monocytes % 3 % Eosinophils % 1 % Basophils % 0 % Neutrophils # 4.8 (1.3-7.7) k/uL Lymphocytes # 0.7 L (1.0-4.8) k/uL Monocytes # 0.2 (0-1.0) k/uL Eosinophils # 0.0 (0-0.7) k/uL Basophils # 0.0 (0-0.2) k/uL PT 10.7 (9.0-12.0) sec INR 1.0 (<1.2) APTT 24.7 (22.0-30.0) sec D-Dimer (<0.60) mg/L FEU Sodium 131 L (137-145) mmol/L Potassium 4.9 (3.5-5.1) mmol/L Chloride 89 L (98-107) mmol/L Carbon Dioxide 37 H (22-30) mmol/L Anion Gap 5 mmol/L BUN 18 (9-20) mg/dL Creatinine 0.75 (0.66-1.25) mg/dL Est GFR (CKD-EPI)AfAm >90 (>60 ml/min/1.73 sqM) Est GFR (CKD-EPI)NonAf >90 (>60 ml/min/1.73 sqM) Glucose 169 H (74-99) mg/dL Calcium 8.2 L (8.4-10.2) mg/dL Total Bilirubin 0.3 (0.2-1.3) mg/dL AST 17 (17-59) U/L ALT 16 (4-49) U/L Alkaline Phosphatase 47 (38-126) U/L Troponin I (0.000-0.034) ng/mL NT-Pro-B Natriuret Pep pg/mL Total Protein 6.1 L (6.3-8.2) g/dL Albumin 3.3 L (3.5-5.0) g/dL 03/13/23 03/13/23 03/13/23 Range/Units 21:57 21:57 21:57 WBC (3.8-10.6) k/uL RBC (4.30-5.90) m/uL Hgb (13.0-17.5) gm/dL Hct (39.0-53.0) % MCV (80.0-100.0) fL MCH (25.0-35.0) pg MCHC (31.0-37.0) g/dL RDW (11.5-15.5) % Plt Count (150-450) k/uL MPV Neutrophils % % Lymphocytes % % Monocytes % % Eosinophils % % Basophils % % Neutrophils # (1.3-7.7) k/uL Lymphocytes # (1.0-4.8) k/uL Monocytes # (0-1.0) k/uL Eosinophils # (0-0.7) k/uL Basophils # (0-0.2) k/uL PT (9.0-12.0) sec INR (<1.2) APTT (22.0-30.0) sec D-Dimer 0.68 H (<0.60) mg/L FEU Sodium (137-145) mmol/L Potassium (3.5-5.1) mmol/L Chloride (98-107) mmol/L Carbon Dioxide (22-30) mmol/L Anion Gap mmol/L BUN (9-20) mg/dL Creatinine (0.66-1.25) mg/dL Est GFR (CKD-EPI)AfAm (>60 ml/min/1.73 sqM) Est GFR (CKD-EPI)NonAf (>60 ml/min/1.73 sqM) Glucose (74-99) mg/dL Calcium (8.4-10.2) mg/dL Total Bilirubin (0.2-1.3) mg/dL AST (17-59) U/L ALT (4-49) U/L Alkaline Phosphatase (38-126) U/L Troponin I 0.036 H* (0.000-0.034) ng/mL NT-Pro-B Natriuret Pep 648 pg/mL Total Protein (6.3-8.2) g/dL Albumin (3.5-5.0) g/dL Critical Care Time Critical Care Time: Yes Total Critical Care Time: 35 Disposition Clinical Impression: Congestive heart failure, Acute exacerbation of chronic obstructive pulmonary disease Disposition: ADMITTED IP TO THIS [facility] Condition: Stable Is patient prescribed a controlled substance at d/c from ED?: No Referrals: Trey Carmen MD [Primary Care Provider] - 1-2 days Time of Disposition: 01:52
--- NOTE | 2023-03-14 01:41 | CT ---
EXAM: CT Angiography Chest With Intravenous Contrast CLINICAL HISTORY: heidy TECHNIQUE: Axial computed tomographic angiography images of the chest with intravenous contrast. CTDI is 55.78 mGy and DLP is 980.8 mGy-cm. This CT exam was performed using one or more of the following dose reduction techniques: automated exposure control, adjustment of the mA and/or kV according to patient size, and/or use of iterative reconstruction technique. MIP reconstructed images were created and reviewed. COMPARISON: No relevant prior studies available. FINDINGS: Limitations: There is extensive respiratory artifact, which degrades image quality throughout the examination. Pulmonary arteries: Accounting for limitations with extensive respiratory artifact, there is no definite evidence for pulmonary embolism. Aorta: No acute findings. No thoracic aortic aneurysm. Lungs: There are multiple pulmonary nodules noted throughout the left lung, most prominent in the left lower lobe, measuring up to 13 mm in diameter. There are also a few subcentimeter pulmonary nodules noted in the right upper lobe, measuring up to 5 mm. Peribronchial cuffing and diffuse interlobular septal thickening are noted bilaterally. Curvilinear subsegmental changes noted along the inferior aspect of the right middle lobe and right lower lobe. Pleural space: Layering bilateral pleural effusions noted measuring up to 3 cm on the right. No loculation. No pneumothorax. Heart: The cardiac chambers are normal in size. Coronary artery calcification is noted in the proximal to mid LAD distribution. No significant pericardial effusion. Bones/joints: No acute fracture. No dislocation. Soft tissues: Unremarkable. Lymph nodes: Nonspecific subcentimeter paratracheal and prevascular lymph nodes. IMPRESSION: 1. Accounting for limitations with extensive respiratory artifact, there is no definite evidence for pulmonary embolism. 2. There are multiple pulmonary nodules noted throughout the left lung, most prominent in the left lower lobe, measuring up to 13 mm in diameter. There are also a few subcentimeter pulmonary nodules noted in the right upper lobe, measuring up to 5 mm. Findings are highly suspicious for metastatic disease. Septic emboli or pneumonia are considered less likely. Please correlate clinically. 3. Peribronchial cuffing and diffuse interlobular septal thickening are noted bilaterally. There are layering bilateral pleural effusions identified. Findings are most consistent with coexisting vascular congestion. 4. Curvilinear subsegmental changes noted along the inferior aspect of the right middle lobe and right lower lobe. This is suspected rounded atelectasis. However, a subtle underlying mass lesion in these areas is difficult to exclude.
[2023-03-14] MEDS ORDERED: NALOXONE 0.4 MG/ML 1 ML VIAL IVP PRN (01:48)
[2023-03-14] MEDS ORDERED: ACETAMINOPHEN TAB 325 MG TAB PO PRN (01:48)
[2023-03-14 04:27] LABS: Basophils % (A) 0 %; Eosinophils % (A) 1 %; HCT 50.5 % (39.0-53.0); Hypochromasia Slight; Lymphocytes # (A) 0.9 k/uL (1.0-4.8); Lymphocytes % (A) 18 %; MCH 28.7 pg (25.0-35.0); MCHC 31.7 g/dL (31.0-37.0); MCV 90.4 fL (80.0-100.0); Mean Platelet Volume 7.1; Monocytes # (A) 0.1 k/uL (0-1.0); Monocytes % (A) 2 %; Neutrophils # (A) 4.1 k/uL (1.3-7.7); Neutrophils % (A) 79 %; Platelet Count 276 k/uL (150-450); RBC 5.58 m/uL (4.30-5.90); RDW 14.2 % (11.5-15.5); WBC 5.3 k/uL (3.8-10.6)
[2023-03-14 04:40] LABS: INR 1.1 (<1.2); Partial Thromboplastin Time 24.8 sec (22.0-30.0); Prothrombin Time 11.1 sec (9.0-12.0)
[2023-03-14] MEDS: methylPREDNISolone SOD SUCCI 125 MG/2 ML VIAL IV SCH ×3 (07:25→21:06)
[2023-03-14] MEDS: IPRATROPIUM-ALBUTEROL 3 ML NEB INHALATION SCH ×4 (08:22→20:58)
[2023-03-14] MEDS: FUROSEMIDE 10 MG/ML 4 ML VIAL IV SCH ×2 (08:57→21:06)
[2023-03-14] MEDS: DIVALPROEX ER 500 MG TAB.ER.24H PO SCH ×2 (11:33→21:00)
[2023-03-14] MEDS: ASPIRIN 81 MG PO SCH (11:33)
[2023-03-14] MEDS: allopurinoL 100 MG TAB PO SCH ×2 (11:33→21:00)
[2023-03-14] MEDS: CYANOCOBALAMIN 500 MCG TAB PO SCH (11:33)
[2023-03-14] MEDS: LEVOTHYROXINE 100 MCG TAB PO SCH (11:34)
[2023-03-14] MEDS: TAMSULOSIN 0.4 MG CAP.ER.24H PO SCH (11:34)
[2023-03-14] MEDS: ZINC SULFATE 220 MG CAP PO SCH (11:34)
--- NOTE | 2023-03-14 14:37 | P.CRDCN ---
History of Present Illness Consult date: 03/14/23 Reason for Consult (text): Troponin elevation History of present illness: History of present illness: This is a 62 year old male with past medical history of hyperlipidemia, hypertension, hypothyroidism, history of coronary artery disease with previous CABG details unknown, active tobacco use and dependence, obstructive sleep apnea not using CPAP. Patient states he presented to the hospital due to choking on food. He denies having any chest pain. According to the ER notes, patient has had progressive dyspnea over the last 2-3 weeks. Patient is an active smoker of 2 packs per day. He denies any marijuana use or alcohol use. He is followed in the past with Dr. Deras for sleep study but does not have CPAP. Patient is seen in the emergency center waiting for a bed on the cardiac stepdown unit. Patient has been started on a heparin drip. Patient initially presented to [facility] where EKG was a sinus rhythm. D-dimer 0.68. Troponin 0.064. WBC 8.0, hemoglobin 13.4. BUN 17 creatinine 0.8, potassium 4.5. BNP 1030. Covid 19 and influenza AMB were not detected. EKG sinus rhythm with no acute ST changes CBC unremarkable. INR 1.1. Sodium 131, potassium 4.9, chloride 89, CO2 37, BUN 18 and creatinine 0.75. Blood sugar 169. Troponin 0.036 and 0.019, 0.015. Liver function tests are normal. CT angiogram of the chest revealed no definite pulmonary embolism. Multiple pulmonary nodules throughout the left lung highly suspicious for metastatic disease. Peribronchial cuffing, bilateral pleural effusions consistent with vascular congestion. Atelectasis. Home cardiac medications: Aspirin 81 mg daily, Lipitor 40 mg at bedtime, lisinopril 5 mg daily, Demadex 40 mg daily and 20 mg as needed, levothyroxine 200 g daily Echocardiogram 2020 revealed EF of 60-65% moderate concentric left hypertrophy, mild tricuspid regurgitation, mild to moderate pulmonary hypertension. Constitutional: No fever, no chills. No weakness, fatigue or lethargy. EENT: No headache. No dizziness. Lungs: Reports shortness of breath, reports cough, no sputum production. No wheezing. Cardiovascular: No chest pain, no lower extremity edema. No palpitations. No paroxysmal nocturnal dyspnea. No orthopnea. No lightheadedness or dizziness. No syncopal episodes. Abdominal: No abdominal pain. No nausea, vomiting. No diarrhea. Musculoskeletal: No myalgias. No muscle weakness, no frequent falls. Neurologic: No aphasia. No facial droop. No change in mentation. No head injury. No headache. Physical examination: Gen: This is a morbidly obese 62-year-old male. His resting on a stretcher appears to be comfortable in no acute distress. VS: reviewed HEENT: Head is atraumatic, normocephalic. Pupils equal, round. Sclerae is anicteric. NECK: Supple. No JVD. LUNGS: Bilateral rhonchi. No intercostal retractions. HEART: Regular rate and rhythm. Systolic murmur. ABDOMEN: Soft No tenderness. EXTREMITIES: Bilateral pedal edema. N NEUROLOGICAL: Patient is awake, alert and oriented x3. Assessment:elevated troponins consistent with myocardial injury COPD exacerbation Acute diastolic heart failure Coronary artery disease Hypertension Hyperlipidemia Hypothyroidism Active tobacco use and dependence Obstructive sleep apnea not on CPAP Plan: Discontinue heparin drip and start patient on heparin subcut Resume patient's home cardiac medications except for Demadex, continue patient on Lasix 40 mg IV every 12 hours Obtain 2-D echocardiogram and Doppler study to assess cardiac structure and function Consult with pulmonary medicine for COPD exacerbation Further recommendations to follow based upon clinical course Thank you kindly for this consultation. Nurse practitioner note has been reviewed, I agree with documented findings and plan of care. Patient was seen and examined. Past Medical History Past Medical History: Coronary Artery Disease (CAD), Chest Pain / Angina, COPD, Diabetes Mellitus, Hyperlipidemia, Hypertension, Pneumonia, Sleep Apnea/C PAP/BIPAP, Thyroid Disorder Additional Past Medical History / Comment(s): hernia bipolar, schizophrenia, History of Any Multi-Drug Resistant Organisms: None Reported Past Surgical History: Coronary Bypass/CABG, Orthopedic Surgery Past Psychological History: Bipolar, Schizophrenia Smoking Status: Current every day smoker Past Alcohol Use History: None Reported Past Drug Use History: None Reported - Past Family History Father History Unknown: Yes Family Medical History: Dementia Mother History Unknown: Yes Family Medical History: COPD Medications and Allergies Home Medications Medication Instructions Recorded Confirmed Type Aspirin EC [Ecotrin Low Dose] 81 mg PO DAILY 07/30/19 03/13/23 History Atorvastatin [Lipitor] 40 mg PO HS 07/30/19 03/13/23 History Divalproex ER [Depakote ER] 1,000 mg PO BID 01/10/20 03/13/23 History Levothyroxine Sodium [Synthroid] 200 mcg PO DAILY 01/10/20 03/13/23 History Torsemide [Demadex] 40 mg PO DAILY 01/10/20 03/13/23 History allopurinoL [Zyloprim] 100 mg PO BID 01/10/20 03/13/23 History Ascorbic Acid [Vitamin C] 500 mg PO BID 03/13/23 03/13/23 History Chlorpheniramine/Dextromethorp 1 tab PO Q6H PRN 03/13/23 03/13/23 History [Coricidin Hbp Cough & Cold Tab] Cholecalciferol [Vitamin D3 (125 125 mcg PO DAILY 03/13/23 03/13/23 History Mcg = 5000 Iu)] Cyanocobalamin (Vitamin B-12) 1,000 mcg PO DAILY 03/13/23 03/13/23 History [Vitamin B-12] Tamsulosin [Flomax] 0.4 mg PO DAILY 03/13/23 03/13/23 History Torsemide [Demadex] 20 mg PO DAILY PRN 03/13/23 03/13/23 History Zinc Sulfate [Orazinc] 220 mg PO DAILY 03/13/23 03/13/23 History lisinopriL [Zestril] 5 mg PO DAILY 03/13/23 03/13/23 History Allergies Allergy/AdvReac Type Severity Reaction Status Date / Time No Known Allergies Allergy Verified 03/13/23 22:29 Physical Exam Vitals: Vital Signs Temp Pulse Resp BP Pulse Ox 03/14/23 11:39 97.8 F 98 18 104/66 98 03/14/23 11:24 90 18 03/14/23 11:14 88 18 03/14/23 08:29 90 18 03/14/23 08:22 90 18 98 03/14/23 05:17 90 16 118/65 95 03/14/23 02:19 84 18 118/65 94 L 03/13/23 23:20 98.0 F 85 18 135/82 95 03/13/23 21:32 98.9 F 87 20 129/80 95 Intake and Output 03/13/23 03/14/23 03/14/23 22:59 06:59 14:59 Output Total 400 Balance -400 Output: Other 400 Other: Weight 136.078 kg Results 03/14/23 04:13 03/13/23 21:57 Cardiac Enzymes 03/13/23 03/13/23 03/14/23 Range/Units 21:57 21:57 06:49 AST 17 (17-59) U/L Troponin I 0.036 H* 0.019 (0.000-0.034) ng/mL 03/14/23 Range/Units 10:32 AST (17-59) U/L Troponin I 0.015 (0.000-0.034) ng/mL Coagulation 03/13/23 03/14/23 03/14/23 Range/Units 21:57 04:07 10:32 PT 10.7 11.1 (9.0-12.0) sec APTT 24.7 24.8 24.6 (22.0-30.0) sec CBC 03/13/23 03/14/23 Range/Units 21:57 04:13 WBC 5.7 5.3 (3.8-10.6) k/uL RBC 5.03 5.58 (4.30-5.90) m/uL Hgb 14.0 16.0 (13.0-17.5) gm/dL Hct 45.1 50.5 (39.0-53.0) % Plt Count 255 276 (150-450) k/uL Comprehensive Metabolic Panel 03/13/23 Range/Units 21:57 Sodium 131 L (137-145) mmol/L Potassium 4.9 (3.5-5.1) mmol/L Chloride 89 L (98-107) mmol/L Carbon Dioxide 37 H (22-30) mmol/L BUN 18 (9-20) mg/dL Creatinine 0.75 (0.66-1.25) mg/dL Glucose 169 H (74-99) mg/dL Calcium 8.2 L (8.4-10.2) mg/dL AST 17 (17-59) U/L ALT 16 (4-49) U/L Alkaline Phosphatase 47 (38-126) U/L Total Protein 6.1 L (6.3-8.2) g/dL Albumin 3.3 L (3.5-5.0) g/dL Current Medications Generic Name Dose Route Start Last Admin Trade Name Freq PRN Reason Stop Dose Admin Acetaminophen 650 mg 03/14/23 01:48 Acetaminophen Tab 325 Mg Tab PO Q4HR PRN Mild Pain or Fever > 100.5 Albuterol/Ipratropium 3 ml 03/14/23 01:48 Ipratropium-Albuterol 3 Ml Neb INHALATION RT-Q2H PRN Shortness Of Breath Or Wheezing Albuterol/Ipratropium 3 ml 03/14/23 08:00 03/14/23 11:14 Ipratropium-Albuterol 3 Ml Neb INHALATION 3 ml RT-QID SUKI Administration Allopurinol 100 mg 03/14/23 10:30 03/14/23 11:33 Allopurinol 100 Mg Tab PO 100 mg BID SUKI Administration Ascorbic Acid 500 mg 03/14/23 21:00 Ascorbic Acid 500 Mg Tab PO BID [facility] Aspirin 81 mg 03/14/23 10:30 03/14/23 11:33 Aspirin 81 Mg PO 81 mg DAILY SUKI Administration Atorvastatin Calcium 40 mg 03/14/23 21:00 Atorvastatin 40 Mg Tab PO HS [facility] Cholecalciferol 125 mcg 03/15/23 09:00 Cholecalciferol 125 Mcg (5000 Iu) Tablet PO DAILY [facility] Cyanocobalamin 1,000 mcg 03/14/23 10:30 03/14/23 11:33 Cyanocobalamin 500 Mcg Tab PO 1,000 mcg DAILY [facility] Administration Divalproex Sodium 1,000 mg 03/14/23 10:30 03/14/23 11:33 Divalproex Er 500 Mg Tab.Er.24h PO 1,000 mg BID [facility] Administration Furosemide 40 mg 03/14/23 09:00 03/14/23 08:57 Furosemide 10 Mg/Ml 4 Ml Vial IV 40 mg Q12HR SUKI Administration Heparin Sodium (Porcine) 5,000 unit 03/14/23 21:00 Heparin Sodium,Porcine/Pf 5,000 Unit/0.5 Ml Syringe SQ Q12HR [facility] Levothyroxine Sodium 200 mcg 03/14/23 10:30 03/14/23 11:34 Levothyroxine 100 Mcg Tab PO 200 mcg DAILY@0630 [facility] Administration Lisinopril 5 mg 03/14/23 21:00 Lisinopril 5 Mg Tab PO HS [facility] Methylprednisolone Sodium Succinate 60 mg 03/14/23 06:00 03/14/23 11:33 Methylprednisolone Sod Succi 125 Mg/2 Ml Vial IV 60 mg Q6HR SUKI Administration Naloxone HCl 0.2 mg 03/14/23 01:48 Naloxone 0.4 Mg/Ml 1 Ml Vial IVP Q2M PRN Opioid Reversal Tamsulosin HCl 0.4 mg 03/14/23 10:30 03/14/23 11:34 Tamsulosin 0.4 Mg Cap.Er.24h PO 0.4 mg DAILY SUKI Administration Zinc Sulfate 220 mg 03/14/23 10:30 03/14/23 11:34 Zinc Sulfate 220 Mg Cap PO 220 mg DAILY SUKI Administration Intake and Output 03/13/23 03/14/23 03/14/23 22:59 06:59 14:59 Output Total 400 Balance -400 Output: Other 400 Other: Weight 136.078 kg 03/14/23 04:13 03/13/23 21:57
[2023-03-14 20:05] LABS: Glucose,Whole Blood 256 mg/dL (70-110)
[2023-03-14] MEDS: HEPARIN SODIUM,PORCINE/PF 5,000 UNIT/0.5 ML SYRINGE SQ SCH (21:00)
[2023-03-14] MEDS: ATORVASTATIN 40 MG TAB PO SCH (21:00)
[2023-03-14] MEDS ORDERED: lisinopriL 5 MG TAB PO SCH (21:00)
[2023-03-14] MEDS: ASCORBIC ACID 500 MG TAB PO SCH (21:00)
--- NOTE | 2023-03-14 21:11 | P.HPIM ---
History of Present Illness H&P Date: 03/14/23 Chief Complaint: Short of breath This is a 62-year-old patient, follows with visiting physicians Dr. Carmen. Patient was transferred here from an outside hospital. Patient been having cough shortness of breath with significant brown sputum. Has weakness in the ER 2. He also has orthopnea. Appetite has been okay. Having chills. Also had some lower extremity edema. Patient is a smoker. Sitting up in a chair. Shortness of breath. Review of systems: GEN.: Tired EYES: None HEENT: None NECK: None RESPIRATORY: As above CARDIOVASCULAR: As above GASTROINTESTINAL: None GENITOURINARY: None MUSCULOSKELETAL: Joint pains LYMPHATICS: None HEMATOLOGICAL: None PSYCHIATRY: Bit slow to answer questions NEUROLOGICAL: None Past medical history to include: CAD, COPD, diabetes, hyperlipidemia, hypertension, obstructive sleep apnea, hypothyroid, bipolar, schizophrenia, Social history: Lives at the [facility] home. Smoker. Physical examination: VITAL SIGNS: 98.9, 87, 20, 129/80, 95% on 2 L upon presentation] GENERAL: BMI 47, sitting up in a chair awake, tired. EYES: Pupils equal. Conjunctiva normal. HEENT: External appearance of nose and ears normal, oral cavity grossly normal. NECK: JVD not raised; masses not palpable. HEART: First and second heart sounds are normal; no edema. LUNGS: Respiratory rate increased; decreased breath sound some wheezing, crackles. ABDOMEN: Soft, nontender, liver spleen not palpable, no masses palpable. PSYCH: Able tonsil simple questions. Motor affect normall. MUSCULOSKELETAL:No Clubbing/cyanosis;muscles-grossly intact NEUROLOGICAL: Cranial nerves grossly intact; no facial asymmetry, power and sensation grossly intact. LYMPHATICS: No lymph nodes palpable in the axilla and neck INVESTIGATIONS, reviewed in the clinical context: White count 5.3 hemoglobin 16 platelets 276 sodium 131 potassium 4.9 creatinine 0.75 Troponin I 0.036, 0.019, 0.015. ProBNP 648 CTA chest: No obvious PE. Multiple pulmonary nodules throughout the left lung. Also some in the right upper lobe. Peribronchial cuffing and diffuse interlob ular septal thickening bilaterally. EKG tracing personally reviewed by me-normal sinus rhythm. Assessment and plan: -Pneumonia with thick brown sputum. Suspect gram-negative organism IV ceftriaxone. Blood culture. Sputum for Gram stain and culture -Troponin leak from hemodynamic mismatch. No ACS -Mild to moderate cognitive impairment -Hyperlipidemia Lipitor 40 mg daily at bedtime -Hypouricemia Allopurinol 100 mg twice a day -Bipolar Depakote ER thousand milligrams twice a day Hypothyroid Synthroid 200 g a day -BPH Flomax 0.4 mg a day -CAD with a prior history of coronary bypass -Chronic cigarette smoker Nicotine patch 21 -Acute COPD exacerbation in a current smoker DuoNeb. IV Solu-Medrol. Mucinex. -Obstructive sleep apnea Consult pulmonary -Acute congestive heart failure, EF not known Cardiology on the case. IV Lasix. Past Medical History Past Medical History: Coronary Artery Disease (CAD), Chest Pain / Angina, COPD, Diabetes Mellitus, Hyperlipidemia, Hypertension, Pneumonia, Sleep Apnea/CPAP/BIPAP, Thyroid Disorder Additional Past Medical History / Comment(s): hernia bipolar, schizophrenia, History of Any Multi-Drug Resistant Organisms: None Reported Past Surgical History: Coronary Bypass/CABG, Orthopedic Surgery Past Psychological History: Bipolar, Schizophrenia Smoking Status: Current every day smoker Past Alcohol Use History: None Reported Past Drug Use History: None Reported - Past Family History Father History Unknown: Yes Family Medical History: Dementia Mother History Unknown: Yes Family Medical History: COPD Medications and Allergies Home Medications Medication Instructions Recorded Confirmed Type Aspirin EC [Ecotrin Low Dose] 81 mg PO DAILY 07/30/19 03/13/23 History Atorvastatin [Lipitor] 40 mg PO HS 07/30/19 03/13/23 History Divalproex ER [Depakote ER] 1,000 mg PO BID 01/10/20 03/13/23 History Levothyroxine Sodium [Synthroid] 200 mcg PO DAILY 01/10/20 03/13/23 History Torsemide [Demadex] 40 mg PO DAILY 01/10/20 03/13/23 History allopurinoL [Zyloprim] 100 mg PO BID 01/10/20 03/13/23 History Ascorbic Acid [Vitamin C] 500 mg PO BID 03/13/23 03/13/23 History Chlorpheniramine/Dextromethorp 1 tab PO Q6H PRN 03/13/23 03/13/23 History [Coricidin Hbp Cough & Cold Tab] Cholecalciferol [Vitamin D3 (125 125 mcg PO DAILY 03/13/23 03/13/23 History Mcg = 5000 Iu)] Cyanocobalamin (Vitamin B-12) 1,000 mcg PO DAILY 03/13/23 03/13/23 History [Vitamin B-12] Tamsulosin [Flomax] 0.4 mg PO DAILY 03/13/23 03/13/23 History Torsemide [Demadex] 20 mg PO DAILY PRN 03/13/23 03/13/23 History Zinc Sulfate [Orazinc] 220 mg PO DAILY 03/13/23 03/13/23 History lisinopriL [Zestril] 5 mg PO DAILY 03/13/23 03/13/23 History Allergies Allergy/AdvReac Type Severity Reaction Status Date / Time No Known Allergies Allergy Verified 03/13/23 22:29 Physical Exam Vitals: Vital Signs Temp Pulse Resp BP Pulse Ox 03/14/23 08:29 90 18 03/14/23 08:22 90 18 98 03/14/23 05:17 90 16 118/65 95 03/14/23 02:19 84 18 118/65 94 L 03/13/23 23:20 98.0 F 85 18 135/82 95 03/13/23 21:32 98.9 F 87 20 129/80 95 Intake and Output 03/13/23 03/14/23 03/14/23 22:59 06:59 14:59 Output Total 400 Balance -400 Output: Other 400 Other: Weight 136.078 kg Results CBC & Chem 7: 03/14/23 04:13 03/13/23 21:57 Labs: Abnormal Lab Results - Last 24 Hours (Table) 03/13/23 03/13/23 03/13/23 Range/Units 21:57 21:57 21:57 Lymphocytes # 0.7 L (1.0-4.8) k/uL D-Dimer (<0.60) mg/L FEU Sodium 131 L (137-145) mmol/L Chloride 89 L (98-107) mmol/L Carbon Dioxide 37 H (22-30) mmol/L Glucose 169 H (74-99) mg/dL Calcium 8.2 L (8.4-10.2) mg/dL Troponin I 0.036 H* (0.000-0.034) ng/mL Total Protein 6.1 L (6.3-8.2) g/dL Albumin 3.3 L (3.5-5.0) g/dL 03/13/23 03/14/23 Range/Units 21:57 04:13 Lymphocytes # 0.9 L (1.0-4.8) k/uL D-Dimer 0.68 H (<0.60) mg/L FEU Sodium (137-145) mmol/L Chloride (98-107) mmol/L Carbon Dioxide (22-30) mmol/L Glucose (74-99) mg/dL Calcium (8.4-10.2) mg/dL Troponin I (0.000-0.034) ng/mL Total Protein (6.3-8.2) g/dL Albumin (3.5-5.0) g/dL
[2023-03-14] MEDS: methylPREDNISolone SOD SUCCI 40 MG/ML 1 ML VIAL IV SCH (21:22)
[2023-03-14] MEDS: guaiFENesin 600 MG TABLET.ER PO SCH (21:57)
[2023-03-15] MEDS: LEVOTHYROXINE 100 MCG TAB PO SCH (05:59)
[2023-03-15] MEDS: methylPREDNISolone SOD SUCCI 40 MG/ML 1 ML VIAL IV SCH (05:59)
[2023-03-15 06:06] LABS: Basophils % (A) 0 %; Eosinophils # (A) 0.1 k/uL (0-0.7); Eosinophils % (A) 1 %; HCT 43.1 % (39.0-53.0); HGB 13.5 gm/dL (13.0-17.5); Lymphocytes # (A) 1.3 k/uL (1.0-4.8); Lymphocytes % (A) 11 %; MCH 28.4 pg (25.0-35.0); MCHC 31.3 g/dL (31.0-37.0); MCV 90.5 fL (80.0-100.0); Mean Platelet Volume 6.7; Monocytes # (A) 0.8 k/uL (0-1.0); Monocytes % (A) 7 %; Neutrophils # (A) 9.4 k/uL (1.3-7.7); Neutrophils % (A) 81 %; Platelet Count 298 k/uL (150-450); RBC 4.77 m/uL (4.30-5.90); RDW 14.1 % (11.5-15.5); WBC 11.7 k/uL (3.8-10.6)
[2023-03-15 06:15] LABS: ALT 17 U/L (4-49); AST 18 U/L (17-59); African American GFR (CKD) >90 (>60 ml/min/1.73 sqM); Albumin 3.1 g/dL (3.5-5.0); Alkaline Phosphatase 43 U/L (38-126); Anion Gap 3 mmol/L; Blood Urea Nitrogen 40 mg/dL (9-20); Calcium 8.1 mg/dL (8.4-10.2); Carbon Dioxide 39 mmol/L (22-30); Chloride 87 mmol/L (98-107); Glucose 221 mg/dL (74-99); Non-African American GFR(CKD) 88 (>60 ml/min/1.73 sqM); Potassium 5.6 mmol/L (3.5-5.1); Sodium 129 mmol/L (137-145); Total Bilirubin 0.3 mg/dL (0.2-1.3); Total Protein 5.8 g/dL (6.3-8.2)
[2023-03-15 06:27] LABS: Glucose,Whole Blood 215 mg/dL (70-110)
[2023-03-15] MEDS: IPRATROPIUM-ALBUTEROL 3 ML NEB INHALATION SCH ×4 (08:14→21:06)
[2023-03-15] MEDS: ASPIRIN 81 MG PO SCH (09:53)
[2023-03-15] MEDS: DIVALPROEX ER 500 MG TAB.ER.24H PO SCH ×2 (09:53→20:33)
[2023-03-15] MEDS: CHOLECALCIFEROL 125 MCG (5000 IU) TABLET PO SCH (09:53)
[2023-03-15] MEDS: CYANOCOBALAMIN 500 MCG TAB PO SCH (09:53)
[2023-03-15] MEDS: guaiFENesin 600 MG TABLET.ER PO SCH ×4 (09:53→20:35)
[2023-03-15] MEDS: ZINC SULFATE 220 MG CAP PO SCH (09:53)
[2023-03-15] MEDS: TAMSULOSIN 0.4 MG CAP.ER.24H PO SCH (09:53)
[2023-03-15] MEDS: ASCORBIC ACID 500 MG TAB PO SCH ×2 (09:53→20:33)
[2023-03-15] MEDS: HEPARIN SODIUM,PORCINE/PF 5,000 UNIT/0.5 ML SYRINGE SQ SCH ×2 (09:57→20:32)
[2023-03-15] MEDS: allopurinoL 100 MG TAB PO SCH ×2 (09:57→20:33)
[2023-03-15] MEDS: hydrALAZINE HCL 25 MG TAB PO SCH ×3 (10:08→20:33)
--- NOTE | 2023-03-15 10:42 | CA ---
Transthoracic Echo Report Name: Dario Clifford Age: 62 Gender: M : 1960 Exam Date: 03/15/2023 08:19 Exam Location: [facility] Ht (in): 67 Wt (lb): 300 Ordering Physician: Bonnie Anderson Attending/Referring Phys: [id number], Monica Brainer Fernando Ramsay, RDCS Procedure CPT: Indications: LVF Cardiac Hx: HTN; High Chol.; DM; Severe SOB; Over-obesity; Technical Quality: Very technically difficult study Contrast 1: Lumason Total Dose (mL): 8 Contrast 2: Total Dose (mL): MEASUREMENTS (Male / Female) Normal Values 2D ECHO LV Diastolic Diameter PLAX 3.9 cm 4.2 - 5.9 / 3.9 - 5.3 cm LV Systolic Diameter PLAX 3.1 cm LV Fractional Shortening PLAX 19.6 % IVS Diastolic Thickness 1.1 cm 0.6 - 1.0 / 0.6 - 0.9 cm IVS Systolic Thickness 1.7 cm LVPW Diastolic Thickness 1.0 cm 0.6 - 1.0 / 0.6 - 0.9 cm LVPW Systolic Thickness 1.5 cm LV Relative Wall Thickness 0.5 RV Internal Dim ED PLAX 3.9 cm LA Systolic Diameter LX 3.8 cm 3.0 - 4.0 / 2.7 - 3.8 cm DOPPLER AV Peak Velocity 160.3 cm/s AV Peak Gradient 10.3 mmHg Mitral E Point Velocity 92.5 cm/s Mitral A Point Velocity 105.5 cm/s Mitral E to A Ratio 0.9 MV Deceleration Time 102.0 ms MV E' Velocity 11.3 cm/s Mitral E to MV E' Ratio 8.2 TR Peak Velocity 169.8 cm/s TR Peak Gradient 11.5 mmHg Right Ventricular Systolic Press 21.5 mmHg FINDINGS Left Ventricle Left ventricular ejection fraction is estimated at 55 %.mild concentric left ventricular hypertrophy. Grade 1 diastolic dysfunction. Reduced global left ventricular systolic function. Right Ventricle Right ventricle not well visualized. RVSP-22 mm Hg. Right Atrium Right atrium not well visualized. Left Atrium Mild left atrial dilatation. Mitral Valve Mitral valve not well visualized. Trace to mild mitral regurgitation. Aortic Valve Aortic valve not well visualized. Tricuspid Valve Tricuspid valve not well visualized. Mild tricuspid regurgitation. Pulmonic Valve Pulmonic valve not well visualized. Pericardium Not well visualized Aorta Aortic root and proximal ascending aorta not well visualized. CONCLUSIONS Technically difficult study with very suboptimal acoustic windows but LV function appears to be preserved. Previewed by: Dr. Gareth Pearson MD (Electronically Signed) Final Date: 15 March 2023 10:41
[2023-03-15 11:26] LABS: Glucose,Whole Blood 262 mg/dL (70-110)
[2023-03-15] MEDS: FUROSEMIDE 40 MG TAB PO SCH ×2 (12:12→18:55)
[2023-03-15] MEDS: methylPREDNISolone SOD SUCCI 125 MG/2 ML VIAL IV SCH ×3 (12:12→23:12)
--- NOTE | 2023-03-15 13:32 | P.CNPUL ---
History of Present Illness Consult date: 03/15/23 Requesting physician: Andrew Chandler Reason for consult: dyspnea, COPD, abnormal CXR/CT Chief complaint: Shortness of breath, abnormal CAT scan. History of present illness: Pulmonary consult dated 03/15/2023. 62-year-old male who resides in assisted living. He sees a visiting physician. He was brought into the emergency room on March 13, complaining of shortness of breath, and chest pain. He was transferred from an outside hospital. Apparently he been having shortness of breath which is been progressive, for 2 or 3 weeks prior to admission. He denied any fever or chest pain. The patient does have a history of heavy tobacco use, smoking 42 years at 1-2 packs a day. The patient apparently was noted to have an elevated troponin level, and BNP, at the outside hospital. For that reason he was evaluated in the emergency room. We see him today, and room 372. The patient's currently on 2 L of oxygen. He's not receiving any IV fluids. He has a history of CAD, diabetes, COPD, hy perlipidemia, hypertension, pneumonia, sleep apnea syndrome, and hypothyroidism. In addition, he's had bypass surgery in the past. Unfortunately, he does continue to smoke cigarettes. White count 11.7, hemoglobin 13.5, hematocrit 43.1, and platelet count was normal. Sodium 129, potassium 5.6, chloride 87, CO2 39, BUN 40, creatinine 0.92. Albumin is 3.1. The patient had a CT angiogram performed, that was negative for PE. Of note, or multiple pulmonary nodules, noted throughout the left lung, most prominent in the left lower lobe. In addition, some nodules in the right lung as well. This was thought to be consistent with possible metastatic disease. Review of Systems REVIEW OF SYSTEMS: CONSTITUTIONAL: [Negative.] NEUROLOGIC: [ Negative.] HEENT: [ Negative.] CARDIAC: [Negative.] PULMONARY: Shortness of breath. GI: [Negative.] : [Negative.] RHEUMATOLOGIC: [ Negative.] IMMUNOLOGIC: [ Negative.] ENDOCRINE: [Negative. ] DERMATOLOGIC: [Negative.] Past Medical History Past Medical History: Coronary Artery Disease (CAD), Chest Pain / Angina, COPD, Diabetes Mellitus, Hyperlipidemia, Hypertension, Pneumonia, Sleep Apnea/CPAP/BIPAP, Thyroid Disorder Additional Past Medical History / Comment(s): hernia bipolar, schizophrenia, History of Any Multi-Drug Resistant Organisms: None Reported Past Surgical History: Coronary Bypass/CABG, Orthopedic Surgery Past Psychological History: Bipolar, Schizophrenia Smoking Status: Current every day smoker Past Alcohol Use History: None Reported Past Drug Use History: None Reported - Past Family History Father History Unknown: Yes Family Medical History: Dementia Mother History Unknown: Yes Family Medical History: COPD Medications and Allergies Home Medications Medication Instructions Recorded Confirmed Type Aspirin EC [Ecotrin Low Dose] 81 mg PO DAILY 07/30/19 03/13/23 History Atorvastatin [Lipitor] 40 mg PO HS 07/30/19 03/13/23 History Divalproex ER [Depakote ER] 1,000 mg PO BID 01/10/20 03/13/23 History Levothyroxine Sodium [Synthroid] 200 mcg PO DAILY 01/10/20 03/13/23 History Torsemide [Demadex] 40 mg PO DAILY 01/10/20 03/13/23 History allopurinoL [Zyloprim] 100 mg PO BID 01/10/20 03/13/23 History Ascorbic Acid [Vitamin C] 500 mg PO BID 03/13/23 03/13/23 History Chlorpheniramine/Dextromethorp 1 tab PO Q6H PRN 03/13/23 03/13/23 History [Coricidin Hbp Cough & Cold Tab] Cholecalciferol [Vitamin D3 (125 125 mcg PO DAILY 03/13/23 03/13/23 History Mcg = 5000 Iu)] Cyanocobalamin (Vitamin B-12) 1,000 mcg PO DAILY 03/13/23 03/13/23 History [Vitamin B-12] Tamsulosin [Flomax] 0.4 mg PO DAILY 03/13/23 03/13/23 History Torsemide [Demadex] 20 mg PO DAILY PRN 03/13/23 03/13/23 History Zinc Sulfate [Orazinc] 220 mg PO DAILY 03/13/23 03/13/23 History lisinopriL [Zestril] 5 mg PO DAILY 03/13/23 03/13/23 History Allergies Allergy/AdvReac Type Severity Reaction Status Date / Time No Known Allergies Allergy Verified 03/13/23 22:29 Physical Exam Osteopathic Statement: *. No significant issues noted on an osteopathic structural exam other than those noted in the History and Physical/Consult. Vitals: Vital Signs Temp Pulse Pulse Resp BP BP Pulse Ox 03/15/23 12:01 64 03/15/23 11:49 60 03/15/23 04:00 85 16 108/67 92 L 03/14/23 23:18 98.7 F 86 16 88/52 91 L 03/14/23 19:44 99.0 F 89 16 109/65 92 L 03/14/23 18:56 92 18 120/64 93 L 03/14/23 18:31 98.2 F 82 19 126/88 91 L 03/14/23 15:19 90 18 03/14/23 15:15 98 F 73 20 110/51 92 L 03/14/23 15:11 100 18 Intake and Output 03/14/23 03/15/23 03/15/23 22:59 06:59 14:59 Intake Total 535 1735 358 Balance 535 1735 358 Intake: Intake, IV Titration 50 Amount cefTRIAXone 1 gm In 50 Sodium Chloride 0.9% 50 ml @ 100 mls/hr IVPB Q12HR [facility] Rx#:[id number] Oral 485 1735 358 Other: Voiding Method Toilet Toilet # Voids 1 2 No acute distress, oriented 3. Currently on 3 L of oxygen. Saturations are in the mid 90s. HEENT examination is grossly unremarkable. Neck supple. Full range of motion. No adenopathy thyromegaly or neck vein distention. Cardiovascular examination reveals regular rhythm rate. S1-S2 normal. No S3 or S4. No discernible murmur noted. Heart sounds are distant. Heart rate 64 beats per minute. Lungs reveal diffuse inspiratory and expiratory wheezes and rhonchi. The patient's quite bronchospastic. No crackles. Breath sounds equal bilaterally. Abdomen soft bowel sounds are heard. No masses or tenderness. Extremities are intact. No cyanosis clubbing or edema. Skin is without rash or lesion. Neurologic examination is brief but nonfocal. Results - Laboratory Findings CBC and BMP: 03/15/23 05:50 03/15/23 05:50 PT/INR, D-dimer PT 11.1 sec (9.0-12.0) 03/14/23 04:07 INR 1.1 (<1.2) 03/14/23 04:07 D-Dimer 0.68 mg/L FEU (<0.60) H 03/13/23 21:57 Abnormal lab findings: Abnormal Labs 03/13/23 03/13/23 03/13/23 21:57 21:57 21:57 WBC Neutrophils # Lymphocytes # 0.7 L D-Dimer Sodium 131 L Potassium Chloride 89 L Carbon Dioxide 37 H BUN Glucose 169 H POC Glucose (mg/dL) Calcium 8.2 L Troponin I 0.036 H* Total Protein 6.1 L Albumin 3.3 L 03/13/23 03/14/23 03/14/23 21:57 04:13 20:04 WBC Neutrophils # Lymphocytes # 0.9 L D-Dimer 0.68 H Sodium Potassium Chloride Carbon Dioxide BUN Glucose POC Glucose (mg/dL) 256 H Calcium Troponin I Total Protein Albumin 03/15/23 03/15/23 03/15/23 05:50 05:50 06:25 WBC 11.7 H Neutrophils # 9.4 H Lymphocytes # D-Dimer Sodium 129 L Potassium 5.6 H Chloride 87 L Carbon Dioxide 39 H BUN 40 H Glucose 221 H POC Glucose (mg/dL) 215 H Calcium 8.1 L Troponin I Total Protein 5.8 L Albumin 3.1 L 03/15/23 11:25 WBC Neutrophils # Lymphocytes # D-Dimer Sodium Potassium Chloride Carbon Dioxide BUN Glucose POC Glucose (mg/dL) 262 H Calcium Troponin I Total Protein Albumin - Diagnostic Findings Chest x-ray: image reviewed Assessment and Plan Assessment: Acute hypoxemic respiratory failure, multifactorial, secondary to an acute exac erbation of COPD, and possible CHF. Heavy and ongoing history of tobacco use and nicotine addiction. Multiple pulmonary nodules, which may relate to metastatic disease, doubt septic emboli. History of CAD, with previous bypass grafting. History of diabetes mellitus. History of hypertension. History of hyperlipidemia. History of sleep apnea syndrome. History of pneumonia. History of hypothyroidism. History of bipolar disorder/schizophrenia. Plan: Plan dated 03/15/2023. The patient's medications are reviewed and adjusted accordingly. The patient will be placed on albuterol sulfate and ipratropium bromide. Received budesonide 1 mg twice a day mixed with formoterol 20 g twice a day. In addition, we will make sure the patient has Solu-Medrol. The patient has been smoking for 42 years, at one to 2 packs a day. He was smoking up until the time of his admission. He is counseled about the importance of smoking cessation. The patient will need an outpatient PET scan. Time with Patient: Greater than 30
--- NOTE | 2023-03-15 14:11 | P.PN ---
Subjective Progress Note Date: 03/15/23 History of present illness: This is a 62 year old male with past medical history of hyperlipidemia, hypert ension, hypothyroidism, history of coronary artery disease with previous CABG details unknown, active tobacco use and dependence, obstructive sleep apnea not using CPAP. Patient states he presented to the hospital due to choking on food. He denies having any chest pain. According to the ER notes, patient has had progressive dyspnea over the last 2-3 weeks. Patient is an active smoker of 2 packs per day. He denies any marijuana use or alcohol use. He is followed in the past with Dr. Deras for sleep study but does not have CPAP. Patient is seen in the emergency center waiting for a bed on the cardiac stepdown unit. Patient has been started on a heparin drip. Patient initially presented to [facility] where EKG was a sinus rhythm. D-dimer 0.68. Troponin 0.064. WBC 8.0, hemoglobin 13.4. BUN 17 creatinine 0.8, potassium 4.5. BNP 1030. Covid 19 and influenza AMB were not detected. EKG sinus rhythm with no acute ST changes CBC unremarkable. INR 1.1. Sodium 131, potassium 4.9, chloride 89, CO2 37, BUN 18 and creatinine 0.75. Blood sugar 169. Troponin 0.036 and 0.019, 0.015. Liver function tests are normal. CT angiogram of the chest revealed no definite pulmonary embolism. Multiple pulmonary nodules throughout the left lung highly suspicious for metastatic disease. Peribronchial cuffing, bilateral pleural effusions consistent with vascular congestion. Atelectasis. Home cardiac medications: Aspirin 81 mg daily, Lipitor 40 mg at bedtime, lisinopril 5 mg daily, Demadex 40 mg daily and 20 mg as needed, levothyroxine 200 g daily Echocardiogram 2019 revealed EF of 60-65% moderate concentric left hypertrophy, mild tricuspid regurgitation, mild to moderate pulmonary hypertension. 03/15 Patient is seen today in follow-up on the cardiac stepdown unit. Heart rate has been running in the 60s, blood pressure 98/50, pulse ox 91% on 3 L. Repeat blood work reveals sodium of 129, potassium 5.6, chloride 87, CO2 39, BUN 40 creatinine 0.9. Echocardiogram reveals technically difficult study with suboptimal acoustic windows but LV function appears to be preserved. Pulmonary as following for acute exacerbation of COPD. Physical examination: Gen: This is a morbidly obese 62-year-old male. His resting in bed and appears to be comfortable in no acute distress. VS: reviewed HEENT: Head is atraumatic, normocephalic. Pupils equal, round. Sclerae is anicteric. NECK: Supple. No JVD. LUNGS: Bilateral expiratory wheeze and rhonchi. No intercostal retractions. HEART: Regular rate and rhythm. Systolic murmur. ABDOMEN: Soft No tenderness. EXTREMITIES: Bilateral pedal edema. NEUROLOGICAL: Patient is awake, alert and oriented x3. Assessment: Elevated troponins not consistent with myocardial injury COPD exacerbation Acute diastolic heart failure Coronary artery disease Hypertension Hyperlipidemia Hypothyroidism Active tobacco use and dependence Obstructive sleep apnea not on CPAP Plan: Continue heparin subcut Continue patient's home cardiac medications Transition IV Lasix to oral 40 mg daily Add hydralazine 25 mg 3 times daily Discontinue lisinopril Further recommendations to follow based upon clinical course Nurse practitioner note has been reviewed, I agree with documented findings and plan of care. Patient was seen and examined. Objective - Vital Signs Vital signs: Vital Signs Temp 98.7 F 03/14/23 23:18 Pulse 85 03/15/23 04:00 Resp 16 03/15/23 04:00 BP 108/67 03/15/23 04:00 Pulse Ox 92 L 03/15/23 04:00 FiO2 Intake & Output 03/14/23 03/15/23 03/15/23 18:59 06:59 18:59 Intake Total 2270 358 Balance 2270 358 Intake: Intake, IV Titration 50 Amount cefTRIAXone 1 gm In 50 Sodium Chloride 0.9% 50 ml @ 100 mls/hr IVPB Q12HR [facility] Rx#:[id number] Oral 2220 358 Other: Voiding Method Toilet # Voids 2 - Labs CBC & Chem 7: 03/15/23 05:50 03/15/23 05:50 Labs: Abnormal Lab Results - Last 24 Hours (Table) 03/14/23 03/15/23 03/15/23 Range/Units 20:04 05:50 05:50 WBC 11.7 H (3.8-10.6) k/uL Neutrophils # 9.4 H (1.3-7.7) k/uL Sodium 129 L (137-145) mmol/L Potassium 5.6 H (3.5-5.1) mmol/L Chloride 87 L (98-107) mmol/L Carbon Dioxide 39 H (22-30) mmol/L BUN 40 H (9-20) mg/dL Glucose 221 H (74-99) mg/dL POC Glucose (mg/dL) 256 H (70-110) mg/dL Calcium 8.1 L (8.4-10.2) mg/dL Total Protein 5.8 L (6.3-8.2) g/dL Albumin 3.1 L (3.5-5.0) g/dL 03/15/23 Range/Units 06:25 WBC (3.8-10.6) k/uL Neutrophils # (1.3-7.7) k/uL Sodium (137-145) mmol/L Potassium (3.5-5.1) mmol/L Chloride (98-107) mmol/L Carbon Dioxide (22-30) mmol/L BUN (9-20) mg/dL Glucose (74-99) mg/dL POC Glucose (mg/dL) 215 H (70-110) mg/dL Calcium (8.4-10.2) mg/dL Total Protein (6.3-8.2) g/dL Albumin (3.5-5.0) g/dL
[2023-03-15 16:29] LABS: Glucose,Whole Blood 369 mg/dL (70-110)
[2023-03-15] MEDS ORDERED: DEXTROSE 50% SYRINGE 50 ML IVP PRN ×2 (17:31)
[2023-03-15] MEDS: SODIUM ZIRCONIUM CYCLOSILICATE 10 GM PACKET PO SCH ×2 (18:15→23:12)
[2023-03-15] MEDS: INSULIN ASPART (NovoLOG) 100 UNIT/ML VIAL SQ SCH ×2 (18:16→20:32)
[2023-03-15] MEDS: FUROSEMIDE 10 MG/ML 4 ML VIAL IV SCH (18:33)
--- NOTE | 2023-03-15 18:33 | P.PN ---
Progress Note - Text Progress Note Date: 03/15/23 Chief Complaint: Short of breath This is a 62-year-old patient, follows with visiting physicians Dr. Carmen. Patient was transferred here from an outside hospital. Patient been having cough shortness of breath with significant brown sputum. Has weakness in the ER 2. He also has orthopnea. Appetite has been okay. Having chills. Also had some lower extremity edema. Patient is a smoker. Sitting up in a chair. Shortness of breath. Admitted with pneumonia, COPD exacerbation, CHF exacerbation. Started on ceftriaxone, bronchodilators, IV Solu-Medrol March 15: Appetite good. Feeling better. Congested cough. Decrease sputum. Per cardiology Lasix changed over to oral. Lisinopril discontinued. Lokelma added for hyperkalemia. Discussed with patient. Active Medications Acetaminophen (Acetaminophen Tab 325 Mg Tab) 650 mg PO Q4HR PRN PRN Reason: Mild Pain or Fever > 100.5 Albuterol/Ipratropium (Ipratropium-Albuterol 3 Ml Neb) 3 ml INHALATION RT-Q2H PRN PRN Reason: Shortness Of Breath Or Wheezing Albuterol/Ipratropium (Ipratropium-Albuterol 3 Ml Neb) 3 ml INHALATION RT-QID [facility] Last Admin: 03/15/23 15:48 Dose: 3 ml Allopurinol (Allopurinol 100 Mg Tab) 100 mg PO BID [facility] Last Admin: 03/15/23 09:57 Dose: 100 mg Ascorbic Acid (Ascorbic Acid 500 Mg Tab) 500 mg PO BID [facility] Last Admin: 03/15/23 09:53 Dose: 500 mg Aspirin (Aspirin 81 Mg) 81 mg PO DAILY [facility] Last Admin: 03/15/23 09:53 Dose: 81 mg Atorvastatin Calcium (Atorvastatin 40 Mg Tab) 40 mg PO HS [facility] Last Admin: 03/14/23 21:00 Dose: 40 mg Budesonide (Budesonide 1 Mg/2 Ml Nebu) 1 mg INHALATION RT-BID [facility] Cholecalciferol (Cholecalciferol 125 Mcg (5000 Iu) Tablet) 125 mcg PO DAILY [facility] Last Admin: 03/15/23 09:53 Dose: 125 mcg Cyanocobalamin (Cyanocobalamin 500 Mcg Tab) 1,000 mcg PO DAILY [facility] Last Admin: 03/15/23 09:53 Dose: 1,000 mcg Dextrose/Water (Dextrose 50% Syringe 50 Ml) 25 ml IVP PER PROTOCOL PRN; Protocol PRN Reason: Hypoglycemia Dextrose/Water (Dextrose 50% Syringe 50 Ml) 50 ml IVP PER PROTOCOL PRN; Protocol PRN Reason: Hypoglycemia Divalproex Sodium (Divalproex Er 500 Mg Tab.Er.24h) 1,000 mg PO BID [facility] Last Admin: 03/15/23 09:53 Dose: 1,000 mg Formoterol Fumarate (Formoterol Fumarate 20 Mcg/2 Ml Nebu) 20 mcg INHALATION RT-BID [facility] Furosemide (Furosemide 40 Mg Tab) 40 mg PO DAILY [facility] Last Admin: 03/15/23 12:12 Dose: 40 mg Guaifenesin (Guaifenesin 600 Mg Tablet.Er) 600 mg PO QID [facility] Last Admin: 03/15/23 18:15 Dose: 600 mg Heparin Sodium (Porcine) (Heparin Sodium,Porcine/Pf 5,000 Unit/0.5 Ml Syringe) 5,000 unit SQ Q12HR [facility] Last Admin: 03/15/23 09:57 Dose: 5,000 unit Hydralazine HCl (Hydralazine Hcl 25 Mg Tab) 25 mg PO TID [facility] Last Admin: 03/15/23 17:16 Dose: Not Given Ceftriaxone Sodium 1 gm/ (Sodium Chloride) 50 mls @ 100 mls/hr IVPB Q12HR [facility]; Protocol Last Admin: 03/15/23 09:54 Dose: 100 mls/hr Insulin Aspart (Insulin Aspart (Novolog) 100 Unit/Ml Vial) 0 unit SQ ACHS [facility]; Protocol Last Admin: 03/15/23 18:16 Dose: 10 unit Levothyroxine Sodium (Levothyroxine 100 Mcg Tab) 200 mcg PO DAILY@0630 [facility] Last Admin: 03/15/23 05:59 Dose: 200 mcg Methylprednisolone Sodium Succinate (Methylprednisolone Sod Succi 125 Mg/2 Ml Vial) 60 mg IV Q6HR [facility] Last Admin: 03/15/23 18:15 Dose: 60 mg Naloxone HCl (Naloxone 0.4 Mg/Ml 1 Ml Vial) 0.2 mg IVP Q2M PRN PRN Reason: Opioid Reversal Tamsulosin HCl (Tamsulosin 0.4 Mg Cap.Er.24h) 0.4 mg PO DAILY [facility] Last Admin: 03/15/23 09:53 Dose: 0.4 mg Zinc Sulfate (Zinc Sulfate 220 Mg Cap) 220 mg PO DAILY [facility] Last Admin: 03/15/23 09:53 Dose: 220 mg Past medical history to include: CAD, COPD, diabetes, hyperlipidemia, hypertension, obstructive sleep apnea, hypothyroid, bipolar, schizophrenia, Social history: Lives at the [facility] home. Smoker. Physical examination: VITAL SIGNS: 98.4, 80, 20, 103/56, 93% on 4 L GENERAL: BMI 47, upright chair, shortness of breath EYES: Pupils equal. Conjunctiva normal. HEENT: External appearance of nose and ears normal, oral cavity grossly normal. NECK: JVD not raised; masses not palpable. HEART: First and second heart sounds are normal; no edema. LUNGS: Respiratory rate increased; decreased breath sound some wheezing,. ABDOMEN: Soft, nontender, liver spleen not palpable, no masses palpable. PSYCH: Able to answer simple questions. MUSCULOSKELETAL:No Clubbing/cyanosis;muscles-grossly intact NEUROLOGICAL: Cranial nerves grossly intact; no facial asymmetry, power and sensation grossly intact. LYMPHATICS: No lymph nodes palpable in the axilla and neck INVESTIGATIONS, reviewed in the clinical context: 2-D echocardiogram [March 15] EF 55%. Technically difficult study March 15: White count 11.7 hemoglobin 13.5 platelets 298 sodium 129 potassium 5.6 creatinine 0.92 White count 5.3 hemoglobin 16 platelets 276 sodium 131 potassium 4.9 creatinine 0.75 Troponin I 0.036, 0.019, 0.015. ProBNP 648 CTA chest: No obvious PE. Multiple pulmonary nodules throughout the left lung. Also some in the right upper lobe. Peribronchial cuffing and diffuse in terlobular septal thickening bilaterally. EKG tracing personally reviewed by me-normal sinus rhythm. Assessment and plan: -Pneumonia with thick brown sputum. Suspect gram-negative organism: Slow to respond IV ceftriaxone. Blood culture. Sputum for Gram stain and culture -Troponin leak from hemodynamic mismatch. No ACS -Hyponatremia from diuresis Lasix cutback. -Acute hyperkalemia from diuresis and lisinopril: New diagnosis *Lokelma -Mild to moderate cognitive impairment -Hyperlipidemia Lipitor 40 mg daily at bedtime -Hypouricemia Allopurinol 100 mg twice a day -Bipolar Depakote ER thousand milligrams twice a day Hypothyroid Synthroid 200 g a day -BPH Flomax 0.4 mg a day -CAD with a prior history of coronary bypass -Chronic cigarette smoker Nicotine patch 21 -Acute COPD exacerbation in a current smoker DuoNeb. IV Solu-Medrol. Mucinex. -Obstructive sleep apnea Consult pulmonary -Acute congestive heart failure, from diastolic dysfunction EF 55%: [facility] on the case. IV Lasix changed to oral Lasix IV Lasix changed over to by mouth Lasix.*Lokelma. Continue bronchodilators IV steroids antibiotics.
[2023-03-15 20:17] LABS: Glucose,Whole Blood 368 mg/dL (70-110)
[2023-03-15] MEDS: ATORVASTATIN 40 MG TAB PO SCH (20:32)
[2023-03-15] MEDS: FORMOTEROL FUMARATE 20 MCG/2 ML NEBU INHALATION SCH (21:06)
[2023-03-15] MEDS: BUDESONIDE 1 MG/2 ML NEBU INHALATION SCH (21:06)
[2023-03-16] MEDS: IPRATROPIUM-ALBUTEROL 3 ML NEB INHALATION PRN ×2 (04:15→22:45)
[2023-03-16 06:03] LABS: Glucose,Whole Blood 280 mg/dL (70-110)
[2023-03-16] MEDS: methylPREDNISolone SOD SUCCI 125 MG/2 ML VIAL IV SCH ×4 (06:36→20:44)
[2023-03-16] MEDS: INSULIN ASPART (NovoLOG) 100 UNIT/ML VIAL SQ SCH ×4 (06:36→20:44)
[2023-03-16] MEDS: LEVOTHYROXINE 100 MCG TAB PO SCH (06:36)
[2023-03-16] MEDS: CHOLECALCIFEROL 125 MCG (5000 IU) TABLET PO SCH (09:53)
[2023-03-16] MEDS: ZINC SULFATE 220 MG CAP PO SCH (09:53)
[2023-03-16] MEDS: ASCORBIC ACID 500 MG TAB PO SCH ×2 (09:53→19:45)
[2023-03-16] MEDS: allopurinoL 100 MG TAB PO SCH ×2 (09:53→19:45)
[2023-03-16] MEDS: TAMSULOSIN 0.4 MG CAP.ER.24H PO SCH (09:53)
[2023-03-16] MEDS: CYANOCOBALAMIN 500 MCG TAB PO SCH (09:53)
[2023-03-16] MEDS: guaiFENesin 600 MG TABLET.ER PO SCH ×4 (09:53→20:44)
[2023-03-16] MEDS: FORMOTEROL FUMARATE 20 MCG/2 ML NEBU INHALATION SCH ×2 (09:54→20:35)
[2023-03-16] MEDS: IPRATROPIUM-ALBUTEROL 3 ML NEB INHALATION SCH ×4 (09:54→20:35)
[2023-03-16] MEDS: BUDESONIDE 1 MG/2 ML NEBU INHALATION SCH ×2 (09:54→20:35)
[2023-03-16] MEDS: DIVALPROEX ER 500 MG TAB.ER.24H PO SCH ×2 (09:54→19:45)
[2023-03-16] MEDS: HEPARIN SODIUM,PORCINE/PF 5,000 UNIT/0.5 ML SYRINGE SQ SCH ×2 (09:56→19:44)
[2023-03-16] MEDS: ASPIRIN 81 MG PO SCH (09:56)
[2023-03-16] MEDS: hydrALAZINE HCL 25 MG TAB PO SCH ×3 (09:57→20:39)
[2023-03-16 10:27] LABS: African American GFR (CKD) >90 (>60 ml/min/1.73 sqM); Anion Gap 4 mmol/L; Blood Urea Nitrogen 43 mg/dL (9-20); Calcium 8.1 mg/dL (8.4-10.2); Carbon Dioxide 35 mmol/L (22-30); Chloride 88 mmol/L (98-107); Glucose 321 mg/dL (74-99); Non-African American GFR(CKD) >90 (>60 ml/min/1.73 sqM); Potassium 5.5 mmol/L (3.5-5.1); Sodium 127 mmol/L (137-145)
[2023-03-16 11:45] LABS: Glucose,Whole Blood 300 mg/dL (70-110)
--- NOTE | 2023-03-16 12:08 | P.PN ---
Subjective Progress Note Date: 03/16/23 Principal diagnosis: Shortness of breath. Pulmonary consult dated 03/15/2023. 62-year-old male who resides in assisted living. He sees a visiting physician. He was brought into the emergency room on March 13, complaining of shortness of breath, and chest pain. He was transferred from an outside hospital. Apparently he been having shortness of breath which is been progressive, for 2 or 3 weeks prior to admission. He denied any fever or chest pain. The patient does have a history of heavy tobacco use, smoking 42 years at 1-2 packs a day. The patient apparently was noted to have an elevated troponin level, and BNP, at the outside hospital. For that reason he was evaluated in the emergency room. We see him today, and room 372. The patient's currently on 2 L of oxygen. He's not receiving any IV fluids. He has a history of CAD, diabetes, COPD, hyperlipidemia, hypertension, pneumonia, sleep apnea syndrome, and hypothyroidism. In addition, he's had bypass surgery in the past. Unfortunately, he does continue to smoke cigarettes. White count 11.7, hemoglobin 13.5, hematocrit 43.1, and platelet count was normal. Sodium 129, potassium 5.6, chloride 87, CO2 39, BUN 40, creatinine 0.92. Albumin is 3.1. The patient had a CT angiogram performed, that was negative for PE. Of note, or multiple pulmonary nodules, noted throughout the left lung, most prominent in the left lower lobe. In addition, some nodules in the right lung as well. This was thought to be consistent with possible metastatic disease. Progress note dated 03/16/2023. The patient is seen today in room 372. Consultation was done yesterday. Please see the note above. The patient's currently on 3 L of oxygen. He is not receiving any IV fluids. He remains on Rocephin. Labs include a sodium 127, potassium 5.5, chlorides 88, CO2 35, anion gap 4, BUN 43, and creatinine 0.84. Glucose 321. Culture data is as far negative. Objective - Vital Signs Vital signs: Vital Signs Temp 98.0 F 03/16/23 08:00 Pulse 88 03/16/23 10:20 Resp 20 03/16/23 08:00 BP 116/65 03/16/23 08:00 Pulse Ox 94 L 03/16/23 09:54 FiO2 Intake & Output 03/15/23 03/16/23 03/16/23 18:59 06:59 18:59 Intake Total 109 0454 306 Balance 716 8614 240 Weight 139.8 kg Intake: Intake, IV Titration 50 Amount cefTRIAXone 1 gm In 50 Sodium Chloride 0.9% 50 ml @ 100 mls/hr IVPB Q12HR [facility] Rx#:[id number] Oral [id number] Other: Voiding Method Toilet Toilet Toilet # Voids 2 - Exam No acute distress, oriented 3. Currently on 3 L of oxygen. Saturations are in the mid 90s. HEENT examination is grossly unremarkable. Neck supple. Full range of motion. No adenopathy thyromegaly or neck vein distention. Cardiovascular examination reveals regular rhythm rate. S1-S2 normal. No S3 or S4. No discernible murmur noted. Heart sounds are distant. Heart rate 88 beats per minute. Lungs reveal diffuse inspiratory and expiratory wheezes and rhonchi. The patient's quite bronchospastic. No crackles. Breath sounds equal bilaterally. Abdomen soft bowel sounds are heard. No masses or tenderness. Extremities are intact. No cyanosis clubbing or edema. Skin is without rash or lesion. Neurologic examination is brief but nonfocal. - Labs CBC & Chem 7: 03/15/23 05:50 03/16/23 09:34 Labs: Abnormal Lab Results - Last 24 Hours (Table) 03/15/23 03/15/23 03/16/23 Range/Units 16:27 20:15 06:01 Sodium (137-145) mmol/L Potassium (3.5-5.1) mmol/L Chloride (98-107) mmol/L Carbon Dioxide (22-30) mmol/L BUN (9-20) mg/dL Glucose (74-99) mg/dL POC Glucose (mg/dL) 369 H 368 H 280 H (70-110) mg/dL Calcium (8.4-10.2) mg/dL 03/16/23 03/16/23 Range/Units 09:34 11:31 Sodium 127 L (137-145) mmol/L Potassium 5.5 H (3.5-5.1) mmol/L Chloride 88 L (98-107) mmol/L Carbon Dioxide 35 H (22-30) mmol/L BUN 43 H (9-20) mg/dL Glucose 321 H (74-99) mg/dL POC Glucose (mg/dL) 300 H (70-110) mg/dL Calcium 8.1 L (8.4-10.2) mg/dL Microbiology - Last 24 Hours (Table) 03/15/23 21:20 Sputum Culture - Preliminary Sputum 03/14/23 21:54 Blood Culture - Preliminary Blood No Growth after 24 hours Assessment and Plan Assessment: Acute hypoxemic respiratory failure, multifactorial, secondary to an acute exacerbation of COPD, and possible CHF. Heavy and ongoing history of tobacco use and nicotine addiction. Multiple pulmonary nodules, which may relate to metastatic disease, doubt septic emboli. History of CAD, with previous bypass grafting. History of diabetes mellitus. History of hypertension. History of hyperlipidemia. History of sleep apnea syndrome. History of pneumonia. History of hypothyroidism. History of bipolar disorder/schizophrenia. Plan: Plan dated 03/15/2023. The patient's medications are reviewed and adjusted accordingly. The patient will be placed on albuterol sulfate and ipratropium bromide. Received budesonide 1 mg twice a day mixed with formoterol 20 g twice a day. In addition, we will make sure the patient has Solu-Medrol. The patient has been smoking for 42 years, at one to 2 packs a day. He was smoking up until the time of his admission. He is counseled about the importance of smoking cessation. The patient will need an outpatient PET scan. Plan dated 03/16/2023. The patient appears to be doing better with his breathing. He was placed on updrafts, including albuterol sulfate, ipratropium bromide, budesonide, and formoterol. In addition, the patient's receiving IV Solu-Medrol. The patient's been smoking 2 packs a day for 42 years. We will continue to follow make recommendations along the way. Labs, x-rays, and medications are reviewed. He will need an outpatient PET scan. Time with Patient: Less than 30
--- NOTE | 2023-03-16 14:30 | P.PN ---
Subjective Progress Note Date: 03/16/23 History of present illness: This is a 62 year old male with past medical history of hyperlipidemia, hypert ension, hypothyroidism, history of coronary artery disease with previous CABG details unknown, active tobacco use and dependence, obstructive sleep apnea not using CPAP. Patient states he presented to the hospital due to choking on food. He denies having any chest pain. According to the ER notes, patient has had progressive dyspnea over the last 2-3 weeks. Patient is an active smoker of 2 packs per day. He denies any marijuana use or alcohol use. He is followed in the past with Dr. Deras for sleep study but does not have CPAP. Patient is seen in the emergency center waiting for a bed on the cardiac stepdown unit. Patient has been started on a heparin drip. Patient initially presented to [facility] where EKG was a sinus rhythm. D-dimer 0.68. Troponin 0.064. WBC 8.0, hemoglobin 13.4. BUN 17 creatinine 0.8, potassium 4.5. BNP 1030. Covid 19 and influenza AMB were not detected. EKG sinus rhythm with no acute ST changes CBC unremarkable. INR 1.1. Sodium 131, potassium 4.9, chloride 89, CO2 37, BUN 18 and creatinine 0.75. Blood sugar 169. Troponin 0.036 and 0.019, 0.015. Liver function tests are normal. CT angiogram of the chest revealed no definite pulmonary embolism. Multiple pulmonary nodules throughout the left lung highly suspicious for metastatic disease. Peribronchial cuffing, bilateral pleural effusions consistent with vascular congestion. Atelectasis. Home cardiac medications: Aspirin 81 mg daily, Lipitor 40 mg at bedtime, lisinopril 5 mg daily, Demadex 40 mg daily and 20 mg as needed, levothyroxine 200 g daily Echocardiogram 2019 revealed EF of 60-65% moderate concentric left hypertrophy, mild tricuspid regurgitation, mild to moderate pulmonary hypertension. 03/15 Patient is seen today in follow-up on the cardiac stepdown unit. Heart rate has been running in the 60s, blood pressure 98/50, pulse ox 91% on 3 L. Repeat blood work reveals sodium of 129, potassium 5.6, chloride 87, CO2 39, BUN 40 creatinine 0.9. Echocardiogram reveals technically difficult study with suboptimal acoustic windows but LV function appears to be preserved. Pulmonary as following for acute exacerbation of COPD. 03/16 He reports + cough, but overall breathing is improved, currently on 3L NC O2. Na 127, K+ 5.5, creat 0.84. Blood pressure is well controlled. Physical examination: Gen: This is a morbidly obese 62-year-old male. His resting in bedside chair and appears to be comfortable in no acute distress. VS: reviewed HEENT: Head is atraumatic, normocephalic. Pupils equal, round. Sclerae is anicteric. NECK: Supple. No JVD. LUNGS: Bilateral expiratory wheeze and rhonchi. On NC O2. No intercostal retractions. HEART: Regular rate and rhythm. Systolic murmur. ABDOMEN: Soft No tenderness. EXTREMITIES: Bilateral pedal edema. NEUROLOGICAL: Patient is awake, alert and oriented x3. Assessment: Elevated troponins not consistent with myocardial injury COPD exacerbation Acute diastolic heart failure Coronary artery disease Hypertension Hyperlipidemia Hypothyroidism Active tobacco use and dependence Obstructive sleep apnea not on CPAP Hyperkalemia Plan: Overall his breathing is better, but not at his baseline. Continue with diuresis. Blood pressure is well controlled. Continue current medications. We will follow. Nurse practitioner note has been reviewed, I agree with documented findings and plan of care. Patient was seen and examined. Objective - Vital Signs Vital signs: Vital Signs Temp 98.0 F 03/16/23 08:00 Pulse 88 03/16/23 10:20 Resp 20 03/16/23 08:00 BP 116/65 03/16/23 08:00 Pulse Ox 94 L 03/16/23 09:54 FiO2 Intake & Output 03/15/23 03/16/23 03/16/23 18:59 06:59 18:59 Intake Total 716 4457 240 Balance 716 1735 240 Weight 139.8 kg Intake: Intake, IV Titration 50 Amount cefTRIAXone 1 gm In 50 Sodium Chloride 0.9% 50 ml @ 100 mls/hr IVPB Q12HR [facility] Rx#:[id number] Oral [id number] Other: Voiding Method Toilet Toilet Toilet # Voids 2 - Labs CBC & Chem 7: 03/15/23 05:50 03/16/23 09:34 Labs: Abnormal Lab Results - Last 24 Hours (Table) 03/15/23 03/15/23 03/15/23 Range/Units 11:25 16:27 20:15 Sodium (137-145) mmol/L Potassium (3.5-5.1) mmol/L Chloride (98-107) mmol/L Carbon Dioxide (22-30) mmol/L BUN (9-20) mg/dL Glucose (74-99) mg/dL POC Glucose (mg/dL) 262 H 369 H 368 H (70-110) mg/dL Calcium (8.4-10.2) mg/dL 03/16/23 03/16/23 Range/Units 06:01 09:34 Sodium 127 L (137-145) mmol/L Potassium 5.5 H (3.5-5.1) mmol/L Chloride 88 L (98-107) mmol/L Carbon Dioxide 35 H (22-30) mmol/L BUN 43 H (9-20) mg/dL Glucose 321 H (74-99) mg/dL POC Glucose (mg/dL) 280 H (70-110) mg/dL Calcium 8.1 L (8.4-10.2) mg/dL Microbiology - Last 24 Hours (Table) 03/15/23 21:20 Sputum Culture - Preliminary Sputum 03/14/23 21:54 Blood Culture - Preliminary Blood No Growth after 24 hours
[2023-03-16 16:46] LABS: Glucose,Whole Blood 275 mg/dL (70-110)
--- NOTE | 2023-03-16 18:32 | P.PN ---
Progress Note - Text Progress Note Date: 03/16/23 Chief Complaint: Short of breath This is a 62-year-old patient, follows with visiting physicians Dr. Carmen. Patient was transferred here from an outside hospital. Patient been having cough shortness of breath with significant brown sputum. Has weakness in the ER 2. He also has orthopnea. Appetite has been okay. Having chills. Also had some lower extremity edema. Patient is a smoker. Sitting up in a chair. Shortness of breath. Admitted with pneumonia, COPD exacerbation, CHF exacerbation. Started on ceftriaxone, bronchodilators, IV Solu-Medrol March 15: Appetite good. Feeling better. Congested cough. Decrease sputum. Per cardiology Lasix changed over to oral. Lisinopril discontinued. Lokelma added for hyperkalemia. Discussed with patient. March 16: Sitting up in a chair. Eating 100%. Breathing better. Decreased congested cough. DuoNeb. IV Solu-Medrol to be cut back. Potassium still high. Lokelma. Add low potassium diet Active Medications Acetaminophen (Acetaminophen Tab 325 Mg Tab) 650 mg PO Q4HR PRN PRN Reason: Mild Pain or Fever > 100.5 Last Admin: 03/16/23 18:03 Dose: 650 mg Albuterol/Ipratropium (Ipratropium-Albuterol 3 Ml Neb) 3 ml INHALATION RT-Q2H PRN PRN Reason: Shortness Of Breath Or Wheezing Last Admin: 03/16/23 04:15 Dose: 3 ml Albuterol/Ipratropium (Ipratropium-Albuterol 3 Ml Neb) 3 ml INHALATION RT-QID [facility] Last Admin: 03/16/23 16:08 Dose: 3 ml Allopurinol (Allopurinol 100 Mg Tab) 100 mg PO BID [facility] Last Admin: 03/16/23 09:53 Dose: 100 mg Ascorbic Acid (Ascorbic Acid 500 Mg Tab) 500 mg PO BID [facility] Last Admin: 03/16/23 09:53 Dose: 500 mg Aspirin (Aspirin 81 Mg) 81 mg PO DAILY [facility] Last Admin: 03/16/23 09:56 Dose: 81 mg Atorvastatin Calcium (Atorvastatin 40 Mg Tab) 40 mg PO HS [facility] Last Admin: 03/15/23 20:32 Dose: 40 mg Budesonide (Budesonide 1 Mg/2 Ml Nebu) 1 mg INHALATION RT-BID [facility] Last Admin: 03/16/23 09:54 Dose: 1 mg Cholecalciferol (Cholecalciferol 125 Mcg (5000 Iu) Tablet) 125 mcg PO DAILY [facility] Last Admin: 03/16/23 09:53 Dose: 125 mcg Cyanocobalamin (Cyanocobalamin 500 Mcg Tab) 1,000 mcg PO DAILY [facility] Last Admin: 03/16/23 09:53 Dose: 1,000 mcg Dextrose/Water (Dextrose 50% Syringe 50 Ml) 25 ml IVP PER PROTOCOL PRN; Pr otocol PRN Reason: Hypoglycemia Dextrose/Water (Dextrose 50% Syringe 50 Ml) 50 ml IVP PER PROTOCOL PRN; Protocol PRN Reason: Hypoglycemia Divalproex Sodium (Divalproex Er 500 Mg Tab.Er.24h) 1,000 mg PO BID [facility] Last Admin: 03/16/23 09:54 Dose: 1,000 mg Formoterol Fumarate (Formoterol Fumarate 20 Mcg/2 Ml Nebu) 20 mcg INHALATION RT-BID [facility] Last Admin: 03/16/23 09:54 Dose: 20 mcg Furosemide (Furosemide 40 Mg Tab) 40 mg PO DAILY [facility] Last Admin: 03/15/23 18:55 Dose: Not Given Guaifenesin (Guaifenesin 600 Mg Tablet.Er) 600 mg PO QID [facility] Last Admin: 03/16/23 18:01 Dose: 600 mg Heparin Sodium (Porcine) (Heparin Sodium,Porcine/Pf 5,000 Unit/0.5 Ml Syringe) 5,000 unit SQ Q12HR [facility] Last Admin: 03/16/23 09:56 Dose: 5,000 unit Hydralazine HCl (Hydralazine Hcl 25 Mg Tab) 25 mg PO TID [facility] Last Admin: 03/16/23 18:01 Dose: Not Given Ceftriaxone Sodium 1 gm/ (Sodium Chloride) 50 mls @ 100 mls/hr IVPB Q12HR [facility]; Protocol Last Admin: 03/16/23 09:54 Dose: 100 mls/hr Insulin Aspart (Insulin Aspart (Novolog) 100 Unit/Ml Vial) 0 unit SQ ACHS [facility]; Protocol Last Admin: 03/16/23 18:01 Dose: 6 unit Levothyroxine Sodium (Levothyroxine 100 Mcg Tab) 200 mcg PO DAILY@0630 [facility] Last Admin: 03/16/23 06:36 Dose: 200 mcg Methylprednisolone Sodium Succinate (Methylprednisolone Sod Succi 125 Mg/2 Ml Vial) 60 mg IV Q6HR [facility] Last Admin: 03/16/23 18:00 Dose: 60 mg Naloxone HCl (Naloxone 0.4 Mg/Ml 1 Ml Vial) 0.2 mg IVP Q2M PRN PRN Reason: Opioid Reversal Tamsulosin HCl (Tamsulosin 0.4 Mg Cap.Er.24h) 0.4 mg PO DAILY [facility] Last Admin: 03/16/23 09:53 Dose: 0.4 mg Zinc Sulfate (Zinc Sulfate 220 Mg Cap) 220 mg PO DAILY [facility] Last Admin: 03/16/23 09:53 Dose: 220 mg Past medical history to include: CAD, COPD, diabetes, hyperlipidemia, hypertension, obstructive sleep apnea, hypothyroid, bipolar, schizophrenia, Social history: Lives at the [facility] home. Smoker. Physical examination: VITAL SIGNS: 98, 74, 20, 1.6 x 65, 94% on 4 L GENERAL: BMI 47, up in chair chair, shortness of breath better EYES: Pupils equal. Conjunctiva normal. HEENT: External appearance of nose and ears normal, oral cavity grossly normal. NECK: JVD not raised; masses not palpable. HEART: First and second heart sounds are normal; no edema. LUNGS: Respiratory rate increased; decreased breath sound ABDOMEN: Soft, nontender, liver spleen not palpable, no masses palpable. PSYCH: Able to answer simple questions. INVESTIGATIONS, reviewed in the clinical context: March 16: Sodium 127 potassium 5.5 creatinine 0.84 2-D echocardiogram [March 15] EF 55%. Technically difficult study March 15: White count 11.7 hemoglobin 13.5 platelets 298 sodium 129 potassium 5.6 creatinine 0.92 White count 5.3 hemoglobin 16 platelets 276 sodium 131 potassium 4.9 creatinine 0.75 Troponin I 0.036, 0.019, 0.015. ProBNP 648 CTA chest: No obvious PE. Multiple pulmonary nodules throughout the left lung. Also some in the right upper lobe. Peribronchial cuffing and diffuse int erlobular septal thickening bilaterally. EKG tracing personally reviewed by me-normal sinus rhythm. Assessment and plan: -Pneumonia with thick brown sputum. Suspect gram-negative organism: Improving IV ceftriaxone. Blood culture. Sputum for Gram stain and culture -Troponin leak from hemodynamic mismatch. No ACS -Hyponatremia from diuresis Lasix 40 mg by mouth -Acute hyperkalemia from diuresis and lisinopril: Slow to respond *Lokelma -Mild to moderate cognitive impairment -Hyperlipidemia Lipitor 40 mg daily at bedtime -Hypouricemia Allopurinol 100 mg twice a day -Bipolar Depakote ER thousand milligrams twice a day Hypothyroid Synthroid 200 g a day -BPH Flomax 0.4 mg a day -CAD with a prior history of coronary bypass -Chronic cigarette smoker Nicotine patch 21 -Acute COPD exacerbation in a current smoker: Slow to respond DuoNeb. IV Solu-Medrol 40 mg every 8. Mucinex. -Obstructive sleep apnea Consult pulmonary -Acute congestive heart failure, from diastolic dysfunction EF 55%: [facility] on the case. IV Lasix changed to oral Lasix Continue Lokelma. IV Solu-Medrol 40 mg every 8. Bronchodilators. Discussed with patient.
[2023-03-16] MEDS ORDERED: BENZONATATE 100 MG CAP PO PRN (18:48)
[2023-03-16] MEDS: SODIUM ZIRCONIUM CYCLOSILICATE 10 GM PACKET PO SCH ×3 (19:44→23:03)
[2023-03-16] MEDS: ATORVASTATIN 40 MG TAB PO SCH (19:45)
[2023-03-16 20:09] LABS: Glucose,Whole Blood 356 mg/dL (70-110)
[2023-03-17 06:02] LABS: Glucose,Whole Blood 196 mg/dL (70-110)
[2023-03-17] MEDS: LEVOTHYROXINE 100 MCG TAB PO SCH (06:27)
[2023-03-17] MEDS: methylPREDNISolone SOD SUCCI 125 MG/2 ML VIAL IV SCH ×3 (06:27→20:37)
[2023-03-17] MEDS: INSULIN ASPART (NovoLOG) 100 UNIT/ML VIAL SQ SCH ×4 (06:28→20:37)
[2023-03-17] MEDS: BUDESONIDE 1 MG/2 ML NEBU INHALATION SCH ×2 (08:21→19:54)
[2023-03-17] MEDS: IPRATROPIUM-ALBUTEROL 3 ML NEB INHALATION SCH ×4 (08:21→19:54)
[2023-03-17] MEDS: FORMOTEROL FUMARATE 20 MCG/2 ML NEBU INHALATION SCH ×2 (08:37→19:54)
[2023-03-17] MEDS: ZINC SULFATE 220 MG CAP PO SCH (08:57)
[2023-03-17] MEDS: CHOLECALCIFEROL 125 MCG (5000 IU) TABLET PO SCH (08:57)
[2023-03-17] MEDS: CYANOCOBALAMIN 500 MCG TAB PO SCH (08:57)
[2023-03-17] MEDS: FUROSEMIDE 40 MG TAB PO SCH (08:57)
[2023-03-17] MEDS: TAMSULOSIN 0.4 MG CAP.ER.24H PO SCH (08:57)
[2023-03-17] MEDS: guaiFENesin 600 MG TABLET.ER PO SCH ×4 (08:57→20:30)
[2023-03-17] MEDS: ASPIRIN 81 MG PO SCH (08:57)
[2023-03-17] MEDS: ASCORBIC ACID 500 MG TAB PO SCH ×2 (08:58→20:37)
[2023-03-17] MEDS: SODIUM ZIRCONIUM CYCLOSILICATE 10 GM PACKET PO SCH ×2 (08:58→18:25)
[2023-03-17] MEDS: DIVALPROEX ER 500 MG TAB.ER.24H PO SCH ×2 (08:58→20:37)
[2023-03-17] MEDS: allopurinoL 100 MG TAB PO SCH ×2 (08:58→20:37)
[2023-03-17] MEDS: HEPARIN SODIUM,PORCINE/PF 5,000 UNIT/0.5 ML SYRINGE SQ SCH ×2 (08:58→20:37)
[2023-03-17 11:47] LABS: African American GFR (CKD) >90 (>60 ml/min/1.73 sqM); Anion Gap 3 mmol/L; Blood Urea Nitrogen 33 mg/dL (9-20); Calcium 8.4 mg/dL (8.4-10.2); Carbon Dioxide 38 mmol/L (22-30); Chloride 86 mmol/L (98-107); Glucose 231 mg/dL (74-99); Non-African American GFR(CKD) >90 (>60 ml/min/1.73 sqM); Potassium 5.4 mmol/L (3.5-5.1); Sodium 127 mmol/L (137-145)
[2023-03-17 12:02] LABS: Glucose,Whole Blood 241 mg/dL (70-110)
--- NOTE | 2023-03-17 12:49 | P.PN ---
Subjective Progress Note Date: 03/17/23 Principal diagnosis: Shortness of breath. Pulmonary consult dated 03/15/2023. 62-year-old male who resides in assisted living. He sees a visiting physician. He was brought into the emergency room on March 13, complaining of shortness of breath, and chest pain. He was transferred from an outside hospital. Apparently he been having shortness of breath which is been progressive, for 2 or 3 weeks prior to admission. He denied any fever or chest pain. The patient does have a history of heavy tobacco use, smoking 42 years at 1-2 packs a day. The patient apparently was noted to have an elevated troponin level, and BNP, at the outside hospital. For that reason he was evaluated in the emergency room. We see him today, and room 372. The patient's currently on 2 L of oxygen. He's not receiving any IV fluids. He has a history of CAD, diabetes, COPD, hyperlipidemia, hypertension, pneumonia, sleep apnea syndrome, and hypothyroidism. In addition, he's had bypass surgery in the past. Unfortunately, he does continue to smoke cigarettes. White count 11.7, hemoglobin 13.5, hematocrit 43.1, and platelet count was normal. Sodium 129, potassium 5.6, chloride 87, CO2 39, BUN 40, creatinine 0.92. Albumin is 3.1. The patient had a CT angiogram performed, that was negative for PE. Of note, or multiple pulmonary nodules, noted throughout the left lung, most prominent in the left lower lobe. In addition, some nodules in the right lung as well. This was thought to be consistent with possible metastatic disease. Progress note dated 03/16/2023. The patient is seen today in room 372. Consultation was done yesterday. Please see the note above. The patient's currently on 3 L of oxygen. He is not receiving any IV fluids. He remains on Rocephin. Labs include a sodium 127, potassium 5.5, chlorides 88, CO2 35, anion gap 4, BUN 43, and creatinine 0.84. Glucose 321. Culture data is as far negative. Progress note dated 03/17/2023. 62-year-old male seen in consultation 2 days ago. He came into the emergency department on March 13 complaining of shortness of breath and chest pain. He was transferred from an outside hospital. Currently, the patient appears to be doing better. He is currently on 3 L of oxygen. He's not receiving any IV fluids. He states that he is feeling better. Most recent laboratory data includes a sodium 127, potassium 5.4, chloride 86, CO2 38, BUN 33, creatinine 0.75. Calcium is 8.4. Sputum and blood sampling are thus far negative. Objective - Vital Signs Vital signs: Vital Signs Temp 97.9 F 03/17/23 08:00 Pulse 86 03/17/23 12:36 Resp 20 03/17/23 08:00 BP 114/68 03/17/23 08:00 Pulse Ox 91 L 03/17/23 08:00 FiO2 Intake & Output 03/16/23 03/17/23 03/17/23 18:59 06:59 18:59 Intake Total 1640 1710 480 Balance 1640 1710 480 Weight 140.5 kg Intake: Oral 1640 1710 480 Other: Voiding Method Toilet Toilet Toilet # Voids 2 # Bowel Movements 1 - Exam No acute distress, oriented 3. Currently on 3 L of oxygen. Saturations are 93%. HEENT examination is grossly unremarkable. Neck supple. Full range of motion. No adenopathy thyromegaly or neck vein distention. Cardiovascular examination reveals regular rhythm rate. S1-S2 normal. No S3 or S4. No discernible murmur noted. Heart sounds are distant. Heart rate 86 beats per minute. Lungs reveal diffuse inspiratory and expiratory wheezes and rhonchi. The pa tient's quite bronchospastic. No crackles. Breath sounds equal bilaterally. Saturations are 93% on 3 L nasal cannula. Abdomen soft bowel sounds are heard. No masses or tenderness. Extremities are intact. No cyanosis clubbing or edema. Skin is without rash or lesion. Neurologic examination is brief but nonfocal. - Labs CBC & Chem 7: 03/15/23 05:50 03/17/23 10:22 Labs: Abnormal Lab Results - Last 24 Hours (Table) 03/15/23 03/16/23 03/16/23 Range/Units 05:50 16:31 20:07 Sodium (137-145) mmol/L Potassium (3.5-5.1) mmol/L Chloride (98-107) mmol/L Carbon Dioxide (22-30) mmol/L BUN (9-20) mg/dL Glucose (74-99) mg/dL POC Glucose (mg/dL) 275 H 356 H (70-110) mg/dL Hemoglobin A1c 7.1 H (0.0-6.0) % 03/17/23 03/17/23 03/17/23 Range/Units 06:00 10:22 11:43 Sodium 127 L (137-145) mmol/L Potassium 5.4 H (3.5-5.1) mmol/L Chloride 86 L (98-107) mmol/L Carbon Dioxide 38 H (22-30) mmol/L BUN 33 H (9-20) mg/dL Glucose 231 H (74-99) mg/dL POC Glucose (mg/dL) 196 H 241 H (70-110) mg/dL Hemoglobin A1c (0.0-6.0) % Microbiology - Last 24 Hours (Table) 03/15/23 21:20 Gram Stain - Preliminary Sputum Sputum Culture - Preliminary 03/14/23 21:54 Blood Culture - Preliminary Blood No Growth after 48 hours Assessment and Plan Assessment: Acute hypoxemic respiratory failure, multifactorial, secondary to an acute exacerbation of COPD, and possible CHF. Heavy and ongoing history of tobacco use and nicotine addiction. Multiple pulmonary nodules, which may relate to metastatic disease, doubt septic emboli. History of CAD, with previous bypass grafting. History of diabetes mellitus. History of hypertension. History of hyperlipidemia. History of sleep apnea syndrome. History of pneumonia. History of hypothyroidism. History of bipolar disorder/schizophrenia. Plan: Plan dated 03/15/2023. The patient's medications are reviewed and adjusted accordingly. The patient will be placed on albuterol sulfate and ipratropium bromide. Received budesonide 1 mg twice a day mixed with formoterol 20 g twice a day. In addition, we will make sure the patient has Solu-Medrol. The patient has been smoking for 42 years, at one to 2 packs a day. He was smoking up until the time of his admission. He is counseled about the importance of smoking cessation. The patient will need an outpatient PET scan. Plan dated 03/16/2023. The patient appears to be doing better with his breathing. He was placed on updrafts, including albuterol sulfate, ipratropium bromide, budesonide, and formoterol. In addition, the patient's receiving IV Solu-Medrol. The patient's been smoking 2 packs a day for 42 years. We will continue to follow make recommendations along the way. Labs, x-rays, and medications are reviewed. He will need an outpatient PET scan. Plan dated 03/17/2023. Labs, x-rays, and medications are reviewed. His COPD exacerbation is improving slowly. He remains on albuterol sulfate, ipratropium bromide, budesonide 1 mg, and formoterol, 20 g. In addition he is receiving Solu-Medrol, IV. The patient has had a long history of tobacco use, 42 years, 2 packs a day. The patient remains on Rocephin empirically. His pro-calcitonin level is 0.03 both on the 14th and 15th. Antibiotics can be discontinued. We will continue to fo llow the patient make recommendations along the way. Time with Patient: Less than 30
--- NOTE | 2023-03-17 14:08 | P.PN ---
Subjective Progress Note Date: 03/17/23 History of present illness: This is a 62 year old male with past medical history of hyperlipidemia, hypert ension, hypothyroidism, history of coronary artery disease with previous CABG details unknown, active tobacco use and dependence, obstructive sleep apnea not using CPAP. Patient states he presented to the hospital due to choking on food. He denies having any chest pain. According to the ER notes, patient has had progressive dyspnea over the last 2-3 weeks. Patient is an active smoker of 2 packs per day. He denies any marijuana use or alcohol use. He is followed in the past with Dr. Deras for sleep study but does not have CPAP. Patient is seen in the emergency center waiting for a bed on the cardiac stepdown unit. Patient has been started on a heparin drip. Patient initially presented to [facility] where EKG was a sinus rhythm. D-dimer 0.68. Troponin 0.064. WBC 8.0, hemoglobin 13.4. BUN 17 creatinine 0.8, potassium 4.5. BNP 1030. Covid 19 and influenza AMB were not detected. EKG sinus rhythm with no acute ST changes CBC unremarkable. INR 1.1. Sodium 131, potassium 4.9, chloride 89, CO2 37, BUN 18 and creatinine 0.75. Blood sugar 169. Troponin 0.036 and 0.019, 0.015. Liver function tests are normal. CT angiogram of the chest revealed no definite pulmonary embolism. Multiple pulmonary nodules throughout the left lung highly suspicious for metastatic disease. Peribronchial cuffing, bilateral pleural effusions consistent with vascular congestion. Atelectasis. Home cardiac medications: Aspirin 81 mg daily, Lipitor 40 mg at bedtime, lisinopril 5 mg daily, Demadex 40 mg daily and 20 mg as needed, levothyroxine 200 g daily Echocardiogram 2019 revealed EF of 60-65% moderate concentric left hypertrophy, mild tricuspid regurgitation, mild to moderate pulmonary hypertension. 03/15 Patient is seen today in follow-up on the cardiac stepdown unit. Heart rate has been running in the 60s, blood pressure 98/50, pulse ox 91% on 3 L. Repeat blood work reveals sodium of 129, potassium 5.6, chloride 87, CO2 39, BUN 40 creatinine 0.9. Echocardiogram reveals technically difficult study with suboptimal acoustic windows but LV function appears to be preserved. Pulmonary as following for acute exacerbation of COPD. 03/16 He reports + cough, but overall breathing is improved, currently on 3L NC O2. Na 127, K+ 5.5, creat 0.84. Blood pressure is well controlled. 03/17 Sitting up in bedside chair, on 3L NC O2. Breathing is the same, still feels short of breath and coughing. Denies any chest pain. Refusing hydralizine at times. Creatinine stable 0.75. NA 127, K+ 5.4. Physical examination: Gen: This is a morbidly obese 62-year-old male. His resting in bedside chair and appears to be comfortable in no acute distress. VS: reviewed HEENT: Head is atraumatic, normocephalic. Pupils equal, round. Sclerae is anicteric. NECK: Supple. No JVD. LUNGS: Bilateral expiratory wheeze and rhonchi. On NC O2. No intercostal retractions. HEART: Regular rate and rhythm. Systolic murmur. ABDOMEN: Soft No tenderness. EXTREMITIES: Bilateral pedal edema. NEUROLOGICAL: Patient is awake, alert and oriented x3. Assessment: Elevated troponins not consistent with myocardial injury COPD exacerbation Acute diastolic heart failure Coronary artery disease Hypertension Hyperlipidemia Hypothyroidism Active tobacco use and dependence Obstructive sleep apnea not on CPAP Hyperkalemia Plan: Still requiring supplemental oxygen. Check BMP this am. Continue with diuresis. Blood pressure is well controlled, discussed medication compliance. Continue current medications. We will follow. Nurse practitioner note has been reviewed, I agree with documented findings and plan of care. Patient was seen and examined. Objective - Vital Signs Vital signs: Vital Signs Temp 97.8 F 03/16/23 20:00 Pulse 88 03/17/23 08:49 Resp 18 03/17/23 04:00 BP 151/76 03/17/23 04:00 Pulse Ox 92 L 03/17/23 04:00 FiO2 Intake & Output 03/16/23 03/17/23 03/17/23 18:59 06:59 18:59 Intake Total 1640 1710 Balance 1640 1710 Weight 140.5 kg Intake: Oral 1640 1710 Other: Voiding Method Toilet Toilet # Voids 2 # Bowel Movements 1 - Labs CBC & Chem 7: 03/15/23 05:50 03/17/23 10:22 Labs: Abnormal Lab Results - Last 24 Hours (Table) 0403/16/23 03/16/23 Range/Units 05:50 09:34 11:31 Sodium 127 L (137-145) mmol/L Potassium 5.5 H (3.5-5.1) mmol/L Chloride 88 L (98-107) mmol/L Carbon Dioxide 35 H (22-30) mmol/L BUN 43 H (9-20) mg/dL Glucose 321 H (74-99) mg/dL POC Glucose (mg/dL) 300 H (70-110) mg/dL Hemoglobin A1c 7.1 H (0.0-6.0) % Calcium 8.1 L (8.4-10.2) mg/dL 03/16/23 03/16/23 03/17/23 Range/Units 16:31 20:07 06:00 Sodium (137-145) mmol/L Potassium (3.5-5.1) mmol/L Chloride (98-107) mmol/L Carbon Dioxide (22-30) mmol/L BUN (9-20) mg/dL Glucose (74-99) mg/dL POC Glucose (mg/dL) 275 H 356 H 196 H (70-110) mg/dL Hemoglobin A1c (0.0-6.0) % Calcium (8.4-10.2) mg/dL Microbiology - Last 24 Hours (Table) 03/15/23 21:20 Gram Stain - Preliminary Sputum Sputum Culture - Preliminary 03/14/23 21:54 Blood Culture - Preliminary Blood No Growth after 48 hours
[2023-03-17] MEDS: hydrALAZINE HCL 25 MG TAB PO SCH ×3 (15:45→20:30)
[2023-03-17 16:31] LABS: Glucose,Whole Blood 306 mg/dL (70-110)
[2023-03-17] MEDS ORDERED: SODIUM POLYSTYRENE SULFONATE 15 GM/60 ML BOTTLE PO STA (17:34)
--- NOTE | 2023-03-17 17:34 | P.PN ---
Progress Note - Text Progress Note Date: 03/17/23 Chief Complaint: Short of breath This is a 62-year-old patient, follows with visiting physicians Dr. Carmen. Patient was transferred here from an outside hospital. Patient been having cough shortness of breath with significant brown sputum. Has weakness in the ER 2. He also has orthopnea. Appetite has been okay. Having chills. Also had some lower extremity edema. Patient is a smoker. Sitting up in a chair. Shortness of breath. Admitted with pneumonia, COPD exacerbation, CHF exacerbation. Started on ceftriaxone, bronchodilators, IV Solu-Medrol March 15: Appetite good. Feeling better. Congested cough. Decrease sputum. Per cardiology Lasix changed over to oral. Lisinopril discontinued. Lokelma added for hyperkalemia. Discussed with patient. March 16: Sitting up in a chair. Eating 100%. Breathing better. Decreased congested cough. DuoNeb. IV Solu-Medrol to be cut back. Potassium still high. Lokelma. Add low potassium diet March 17: Up in a chair. Eating well. Short of breath. Occasional cough. DuoNeb, IV Solu-Medrol. Cultures pending. On fluid restriction 1500 mL. Low potassium diet. Active Medications Acetaminophen (Acetaminophen Tab 325 Mg Tab) 650 mg PO Q4HR PRN PRN Reason: Mild Pain or Fever > 100.5 Last Admin: 03/16/23 18:03 Dose: 650 mg Albuterol/Ipratropium (Ipratropium-Albuterol 3 Ml Neb) 3 ml INHALATION RT-Q2H PRN PRN Reason: Shortness Of Breath Or Wheezing Last Admin: 03/16/23 22:45 Dose: 3 ml Albuterol/Ipratropium (Ipratropium-Albuterol 3 Ml Neb) 3 ml INHALATION RT-QID [facility] Last Admin: 03/17/23 16:19 Dose: 3 ml Allopurinol (Allopurinol 100 Mg Tab) 100 mg PO BID [facility] Last Admin: 03/17/23 08:58 Dose: 100 mg Ascorbic Acid (Ascorbic Acid 500 Mg Tab) 500 mg PO BID [facility] Last Admin: 03/17/23 08:58 Dose: 500 mg Aspirin (Aspirin 81 Mg) 81 mg PO DAILY [facility] Last Admin: 03/17/23 08:57 Dose: 81 mg Atorvastatin Calcium (Atorvastatin 40 Mg Tab) 40 mg PO HS [facility] Last Admin: 03/16/23 19:45 Dose: 40 mg Benzonatate (Benzonatate 100 Mg Cap) 100 mg PO TID PRN PRN Reason: Cough Last Admin: 03/17/23 08:57 Dose: 100 mg Budesonide (Budesonide 1 Mg/2 Ml Nebu) 1 mg INHALATION RT-BID [facility] Last Admin: 03/17/23 08:21 Dose: 1 mg Cholecalciferol (Cholecalciferol 125 Mcg (5000 Iu) Tablet) 125 mcg PO DAILY [facility] Last Admin: 03/17/23 08:57 Dose: 125 mcg Cyanocobalamin (Cyanocobalamin 500 Mcg Tab) 1,000 mcg PO DAILY [facility] Last Admin: 03/17/23 08:57 Dose: 1,000 mcg Dextrose/Water (Dextrose 50% Syringe 50 Ml) 25 ml IVP PER PROTOCOL PRN; Protocol PRN Reason: Hypoglycemia Dextrose/Water (Dextrose 50% Syringe 50 Ml) 50 ml IVP PER PROTOCOL PRN; Pro tocol PRN Reason: Hypoglycemia Divalproex Sodium (Divalproex Er 500 Mg Tab.Er.24h) 1,000 mg PO BID [facility] Last Admin: 03/17/23 08:58 Dose: 1,000 mg Formoterol Fumarate (Formoterol Fumarate 20 Mcg/2 Ml Nebu) 20 mcg INHALATION RT-BID [facility] Last Admin: 03/17/23 08:37 Dose: 20 mcg Furosemide (Furosemide 40 Mg Tab) 40 mg PO DAILY [facility] Last Admin: 03/17/23 08:57 Dose: 40 mg Guaifenesin (Guaifenesin 600 Mg Tablet.Er) 600 mg PO QID [facility] Last Admin: 03/17/23 15:46 Dose: Not Given Heparin Sodium (Porcine) (Heparin Sodium,Porcine/Pf 5,000 Unit/0.5 Ml Syringe) 5,000 unit SQ Q12HR [facility] Last Admin: 03/17/23 08:58 Dose: 5,000 unit Hydralazine HCl (Hydralazine Hcl 25 Mg Tab) 25 mg PO TID [facility] Last Admin: 03/17/23 15:45 Dose: Not Given Insulin Aspart (Insulin Aspart (Novolog) 100 Unit/Ml Vial) 0 unit SQ ACHS [facility]; Protocol Last Admin: 03/17/23 12:53 Dose: 4 unit Levothyroxine Sodium (Levothyroxine 100 Mcg Tab) 200 mcg PO DAILY@0630 [facility] Last Admin: 03/17/23 06:27 Dose: 200 mcg Methylprednisolone Sodium Succinate (Methylprednisolone Sod Succi 125 Mg/2 Ml Vial) 40 mg IV Q8H [facility] Last Admin: 03/17/23 15:46 Dose: Not Given Naloxone HCl (Naloxone 0.4 Mg/Ml 1 Ml Vial) 0.2 mg IVP Q2M PRN PRN Reason: Opioid Reversal Tamsulosin HCl (Tamsulosin 0.4 Mg Cap.Er.24h) 0.4 mg PO DAILY [facility] Last Admin: 03/17/23 08:57 Dose: 0.4 mg Zinc Sulfate (Zinc Sulfate 220 Mg Cap) 220 mg PO DAILY [facility] Last Admin: 03/17/23 08:57 Dose: 220 mg Past medical history to include: CAD, COPD, diabetes, hyperlipidemia, hypertension, obstructive sleep apnea, hypothyroid, bipolar, schizophrenia, Social history: Lives at the [facility]. Smoker. Physical examination: VITAL SIGNS: Afebrile, 74, 18, 127/61, 94% on 3 L GENERAL: BMI 47, up in chair chair, shortness of breath better EYES: Pupils equal. Conjunctiva normal. HEENT: External appearance of nose and ears normal, oral cavity grossly normal. NECK: JVD not raised; masses not palpable. HEART: First and second heart sounds are normal; no edema. LUNGS: Respiratory rate increased; decreased breath sound ABDOMEN: Soft, nontender, liver spleen not palpable, no masses palpable. PSYCH: Able to answer simple questions. INVESTIGATIONS, reviewed in the clinical context: March 17: Sodium 127 potassium 5.4 creatinine 0.75 March 16: Sodium 127 potassium 5.5 creatinine 0.84 2-D echocardiogram [March 15] EF 55%. Technically difficult study March 15: White count 11.7 hemoglobin 13.5 platelets 298 sodium 129 potassium 5.6 creatinine 0.92 White count 5.3 hemoglobin 16 platelets 276 sodium 131 potassium 4.9 creatinine 0.75 Troponin I 0.036, 0.019, 0.015. ProBNP 648 CTA chest: No obvious PE. Multiple pulmonary nodules throughout the left lung. Also some in the right upper lobe. Peribronchial cuffing and diffuse interlobular septal thickening bilaterally. EKG tracing personally reviewed by me-normal sinus rhythm. Assessment and plan: -Pneumonia with thick brown sputum. Suspect gram-negative organism: Improving IV ceftriaxone. Blood culture. Sputum for Gram stain and culture-pending -Troponin leak from hemodynamic mismatch. No ACS -Hyponatremia from diuresis Lasix 40 mg by mouth -Acute hyperkalemia from diuresis and lisinopril: Slow to respond *Lokelma. We will give 1 dose of Kayexalate -Mild to moderate cognitive impairment -Hyperlipidemia Lipitor 40 mg daily at bedtime -Hypouricemia Allopurinol 100 mg twice a day -Bipolar Depakote ER thousand milligrams twice a day Hypothyroid Synthroid 200 g a day -BPH Flomax 0.4 mg a day -CAD with a prior history of coronary bypass -Chronic cigarette smoker Nicotine patch 21 -Acute COPD exacerbation in a current smoker: Slow to respond DuoNeb. IV Solu-Medrol 40 mg every 8. Mucinex. -Obstructive sleep apnea Consult pulmonary -Acute congestive heart failure, from diastolic dysfunction EF 55%: [facility] on the case. IV Lasix changed to oral Lasix Potassium still up in spite of Lokelma. We'll give 1 dose of Kayexalate. IV Solu-Medrol 40 mg every 8. Bronchodilators. Discussed with patient. Discharge in next 24-48 hours
[2023-03-17 20:07] LABS: Glucose,Whole Blood 192 mg/dL (70-110)
[2023-03-17] MEDS: ATORVASTATIN 40 MG TAB PO SCH (20:37)
[2023-03-18 05:59] LABS: Glucose,Whole Blood 127 mg/dL (70-110)
[2023-03-18] MEDS: methylPREDNISolone SOD SUCCI 125 MG/2 ML VIAL IV SCH ×3 (06:01→22:33)
[2023-03-18] MEDS: LEVOTHYROXINE 100 MCG TAB PO SCH (06:01)
[2023-03-18] MEDS: INSULIN ASPART (NovoLOG) 100 UNIT/ML VIAL SQ SCH ×4 (06:11→20:22)
[2023-03-18 08:01] LABS: African American GFR (CKD) >90 (>60 ml/min/1.73 sqM); Blood Urea Nitrogen 30 mg/dL (9-20); Calcium 8.1 mg/dL (8.4-10.2); Chloride 89 mmol/L (98-107); Glucose 129 mg/dL (74-99); Non-African American GFR(CKD) >90 (>60 ml/min/1.73 sqM); Potassium 4.7 mmol/L (3.5-5.1); Sodium 132 mmol/L (137-145)
[2023-03-18 08:07] LABS: Anion Gap 1 mmol/L
[2023-03-18 08:32] LABS: Carbon Dioxide 42 mmol/L (22-30)
[2023-03-18] MEDS: FORMOTEROL FUMARATE 20 MCG/2 ML NEBU INHALATION SCH ×2 (08:45→20:29)
[2023-03-18] MEDS: BUDESONIDE 1 MG/2 ML NEBU INHALATION SCH ×2 (08:45→20:29)
[2023-03-18] MEDS: IPRATROPIUM-ALBUTEROL 3 ML NEB INHALATION SCH ×4 (08:46→20:29)
[2023-03-18] MEDS: hydrALAZINE HCL 25 MG TAB PO SCH ×3 (09:52→22:34)
[2023-03-18] MEDS: guaiFENesin 600 MG TABLET.ER PO SCH ×4 (09:52→22:33)
[2023-03-18] MEDS: HEPARIN SODIUM,PORCINE/PF 5,000 UNIT/0.5 ML SYRINGE SQ SCH ×2 (10:02→20:22)
[2023-03-18] MEDS: CYANOCOBALAMIN 500 MCG TAB PO SCH (10:03)
[2023-03-18] MEDS: ASCORBIC ACID 500 MG TAB PO SCH ×2 (10:03→20:26)
[2023-03-18] MEDS: allopurinoL 100 MG TAB PO SCH ×2 (10:03→20:23)
[2023-03-18] MEDS: ZINC SULFATE 220 MG CAP PO SCH (10:03)
[2023-03-18] MEDS: CHOLECALCIFEROL 125 MCG (5000 IU) TABLET PO SCH (10:03)
[2023-03-18] MEDS: ASPIRIN 81 MG PO SCH (10:03)
[2023-03-18] MEDS: FUROSEMIDE 40 MG TAB PO SCH (10:03)
[2023-03-18] MEDS: DIVALPROEX ER 500 MG TAB.ER.24H PO SCH ×2 (10:03→20:23)
[2023-03-18] MEDS: TAMSULOSIN 0.4 MG CAP.ER.24H PO SCH (10:03)
--- NOTE | 2023-03-18 11:11 | P.PN ---
Subjective Progress Note Date: 03/18/23 Principal diagnosis: Shortness of breath. Pulmonary consult dated 03/15/2023. 62-year-old male who resides in assisted living. He sees a visiting physician. He was brought into the emergency room on March 13, complaining of shortness of breath, and chest pain. He was transferred from an outside hospital. Apparently he been having shortness of breath which is been progressive, for 2 or 3 weeks prior to admission. He denied any fever or chest pain. The patient does have a history of heavy tobacco use, smoking 42 years at 1-2 packs a day. The patient apparently was noted to have an elevated troponin level, and BNP, at the outside hospital. For that reason he was evaluated in the emergency room. We see him today, and room 372. The patient's currently on 2 L of oxygen. He's not receiving any IV fluids. He has a history of CAD, diabetes, COPD, hyperlipidemia, hypertension, pneumonia, sleep apnea syndrome, and hypothyroidism. In addition, he's had bypass surgery in the past. Unfortunately, he does continue to smoke cigarettes. White count 11.7, hemoglobin 13.5, hematocrit 43.1, and platelet count was normal. Sodium 129, potassium 5.6, chloride 87, CO2 39, BUN 40, creatinine 0.92. Albumin is 3.1. The patient had a CT angiogram performed, that was negative for PE. Of note, or multiple pulmonary nodules, noted throughout the left lung, most prominent in the left lower lobe. In addition, some nodules in the right lung as well. This was thought to be consistent with possible metastatic disease. Progress note dated 03/16/2023. The patient is seen today in room 372. Consultation was done yesterday. Please see the note above. The patient's currently on 3 L of oxygen. He is not receiving any IV fluids. He remains on Rocephin. Labs include a sodium 127, potassium 5.5, chlorides 88, CO2 35, anion gap 4, BUN 43, and creatinine 0.84. Glucose 321. Culture data is as far negative. Progress note dated 03/17/2023. 62-year-old male seen in consultation 2 days ago. He came into the emergency department on March 13 complaining of shortness of breath and chest pain. He was transferred from an outside hospital. Currently, the patient appears to be doing better. He is currently on 3 L of oxygen. He's not receiving any IV fluids. He states that he is feeling better. Most recent laboratory data includes a sodium 127, potassium 5.4, chloride 86, CO2 38, BUN 33, creatinine 0.75. Calcium is 8.4. Sputum and blood sampling are thus far negative. Progress note dated 03/18/2023. 62-year-old male seen in consultation 3 days ago. He came to the emergency department complaining of shortness of breath and chest pain. He was tra nsferred from an outside hospital. Currently, the patient is on 4 L by nasal cannula. He's not receiving any IV fluids. He sitting in a chair next to his bed. He appears not to have any respiratory distress. He does complain of cough. Sodium 132, potassium 4.7, chlorides 89, CO2 42, BUN 30, creatinine 0.74. Calcium is 8.1. Objective - Vital Signs Vital signs: Vital Signs Temp 98.1 F 03/18/23 04:00 Pulse 90 03/18/23 09:09 Resp 18 03/18/23 04:00 BP 122/74 03/18/23 04:00 Pulse Ox 95 03/18/23 08:46 FiO2 Intake & Output 03/17/23 03/18/23 03/18/23 18:59 06:59 18:59 Intake Total 720 240 Output Total 200 200 Balance 720 -200 40 Weight 139 kg Intake: Oral 720 240 Output: Urine 200 200 Other: Voiding Method Toilet Toilet # Bowel Movements 1 - Exam No acute distress, oriented 3. Currently on 4 L of oxygen. Saturations are 95 %. HEENT examination is grossly unremarkable. Neck supple. Full range of motion. No adenopathy thyromegaly or neck vein distention. Cardiovascular examination reveals regular rhythm rate. S1-S2 normal. No S3 or S4. No discernible murmur noted. Heart sounds are distant. Heart rate 90 beats per minute. Lungs reveal diffuse inspiratory and expiratory wheezes and rhonchi. The patient's quite bronchospastic. No crackles. Breath sounds equal bilaterally. Saturations are 95% on 4 L of oxygen. Abdomen soft bowel sounds are heard. No masses or tenderness. Extremities are intact. No cyanosis clubbing or edema. Skin is without rash or lesion. Neurologic examination is brief but nonfocal. - Labs CBC & Chem 7: 03/15/23 05:50 03/18/23 07:26 Labs: Abnormal Lab Results - Last 24 Hours (Table) 03/17/23 03/17/23 03/17/23 Range/Units 10:22 11:43 16:25 Sodium 127 L (137-145) mmol/L Potassium 5.4 H (3.5-5.1) mmol/L Chloride 86 L (98-107) mmol/L Carbon Dioxide 38 H (22-30) mmol/L BUN 33 H (9-20) mg/dL Glucose 231 H (74-99) mg/dL POC Glucose (mg/dL) 241 H 306 H (70-110) mg/dL Calcium (8.4-10.2) mg/dL 03/17/23 03/18/23 03/18/23 Range/Units 20:06 05:58 07:26 Sodium 132 L (137-145) mmol/L Potassium (3.5-5.1) mmol/L Chloride 89 L (98-107) mmol/L Carbon Dioxide 42 H* (22-30) mmol/L BUN 30 H (9-20) mg/dL Glucose 129 H (74-99) mg/dL POC Glucose (mg/dL) 192 H 127 H (70-110) mg/dL Calcium 8.1 L (8.4-10.2) mg/dL Microbiology - Last 24 Hours (Table) 03/15/23 21:20 Gram Stain - Final Sputum Sputum Culture - Final 03/14/23 21:54 Blood Culture - Preliminary Blood No Growth after 72 hours Assessment and Plan Assessment: Acute hypoxemic respiratory failure, multifactorial, secondary to an acute exacerbation of COPD, and possible CHF. Heavy and ongoing history of tobacco use and nicotine addiction. Multiple pulmonary nodules, which may relate to metastatic disease, doubt septic emboli. History of CAD, with previous bypass grafting. History of diabetes mellitus. History of hypertension. History of hyperlipidemia. History of sleep apnea syndrome. History of pneumonia. History of hypothyroidism. History of bipolar disorder/schizophrenia. Plan: Plan dated 03/15/2023. The patient's medications are reviewed and adjusted accordingly. The patient will be placed on albuterol sulfate and ipratropium bromide. Received budesonide 1 mg twice a day mixed with formoterol 20 g twice a day. In addition, we will make sure the patient has Solu-Medrol. The patient has been smoking for 42 years, at one to 2 packs a day. He was smoking up until the time of his admission. He is counseled about the importance of smoking cessation. The patient will need an outpatient PET scan. Plan dated 03/16/2023. The patient appears to be doing better with his breathing. He was placed on updrafts, including albuterol sulfate, ipratropium bromide, budesonide, and formoterol. In addition, the patient's receiving IV Solu-Medrol. The patient's been smoking 2 packs a day for 42 years. We will continue to follow make recommendations along the way. Labs, x-rays, and medications are reviewed. He will need an outpatient PET scan. Plan dated 03/17/2023. Labs, x-rays, and medications are reviewed. His COPD exacerbation is improving slowly. He remains on albuterol sulfate, ipratropium bromide, budesonide 1 mg, and formoterol, 20 g. In addition he is receiving Solu-Medrol, IV. The patient has had a long history of tobacco use, 42 years, 2 packs a day. The patient remains on Rocephin empirically. His pro-calcitonin level is 0.03 both on the 14th and 15th. Antibiotics can be discontinued. We will continue to follow the patient make recommendations along the way. Plan dated 03/18/2023. The patient's pro-calcitonin levels were very low. Antibiotics can are discont inued. The patient's clinically feeling better. Still complaining of shortness of breath, especially when he exerts himself, and a cough. He continues on appropriate medications including albuterol, ipratropium bromide, budesonide, formoterol, and IV Solu-Medrol. We will continue to follow the patient and make recommendations along the way. Prognosis is guarded. Time with Patient: Less than 30
--- NOTE | 2023-03-18 11:28 | P.PN ---
Subjective Progress Note Date: 03/18/23 HISTORY OF PRESENT ILLNESS: This is a 62 year old male with past medical history of hyperlipidemia, hypertension, hypothyroidism, history of coronary artery disease with previous CABG details unknown, active tobacco use and dependence, obstructive sleep apnea not using CPAP. Patient states he presented to the hospital due to choking on food. He denies having any chest pain. According to the ER notes, patient has had progressive dyspnea over the last 2-3 weeks. Patient is an active smoker of 2 packs per day. He denies any marijuana use or alcohol use. He is followed in the past with Dr. Deras for sleep study but does not have CPAP. Patient is seen in the emergency center waiting for a bed on the cardiac stepdown unit. Patient has been started on a heparin drip. Patient initially presented to [facility] where EKG was a sinus rhythm. D-dimer 0.68. Troponin 0.064. WBC 8.0, hemoglobin 13.4. BUN 17 creatinine 0.8, potassium 4.5. BNP 1030. Covid 19 and influenza AMB were not detected. EKG sinus rhythm with no acute ST changes CBC unremarkable. INR 1.1. Sodium 131, potassium 4.9, chloride 89, CO2 37, BUN 18 and creatinine 0.75. Blood sugar 169. Troponin 0.036 and 0.019, 0.015. Liver function tests are normal. CT angiogram of the chest revealed no definite pulmonary embolism. Multiple pulmonary nodules throughout the left lung highly suspicious for metastatic disease. Peribronchial cuffing, bilateral pleural effusions consistent with vascular congestion. Atelectasis. Home cardiac medications: Aspirin 81 mg daily, Lipitor 40 mg at bedtime, lisinopril 5 mg daily, Demadex 40 mg daily and 20 mg as needed, levothyroxine 200 g daily Echocardiogram 2019 revealed EF of 60-65% moderate concentric left hypertrophy, mild tricuspid regurgitation, mild to moderate pulmonary hypertension. 03/15 Patient is seen today in follow-up on the cardiac stepdown unit. Heart rate has been running in the 60s, blood pressure 98/50, pulse ox 91% on 3 L. Repeat blood work reveals sodium of 129, potassium 5.6, chloride 87, CO2 39, BUN 40 creatinine 0.9. Echocardiogram reveals technically difficult study with suboptimal acoustic windows but LV function appears to be preserved. Pulmonary as following for acute exacerbation of COPD. 03/16 He reports + cough, but overall breathing is improved, currently on 3L NC O2. Na 127, K+ 5.5, creat 0.84. Blood pressure is well controlled. 03/17 Sitting up in bedside chair, on 3L NC O2. Breathing is the same, still feels short of breath and coughing. Denies any chest pain. Refusing hydralizine at k[place]ie es. Creatinine stable 0.75. NA 127, K+ 5.4. 03/18/2023 Patient examined this morning at the bedside. patient denies chest pain or pressure. He reports shortness of breath. Patient is wheezing this morning and is receiving a breathing treatment at the time of examination. Vital signs are stable. echocardiogram completed revealing ejection fraction 55%. PHYSICAL EXAM: VITAL SIGNS: Reviewed. GENERAL: Well-developed in no acute distress. NECK: Supple. No JVD or thyromegaly LUNGS: Respirations even and unlabored. Lungs with expiratory wheezing noted throughout. HEART: Regular rate and rhythm. S1 and S2 heard. + systolic murmur. EXTREMITIES: Normal range of motion. No clubbing or cyanosis. Peripheral pulses intact. No lower extremity edema ASSESSMENT: Shortness of breath Acute exacerbation of COPD Acute heart failure with preserved ejection fraction, EF 55% Elevated troponins, ACS ruled out Coronary artery disease Hypertension Hyperlipidemia Hypothyroidism Obstructive sleep apnea, and not utilizing CPAP on an outpatient basis Nicotine dependence PLAN: Pulmonary following for COPD exacerbation Continue current cardiac medications Patient is currently stable from a cardiac perspective with no further inpatient recommendations We will sign off. Please reconsult if needed. Nurse practitioner note has been reviewed by physician. Signing provider agrees with the documented findings, assessment, and plan of care. Objective - Vital Signs Vital signs: Vital Signs Temp 98.1 F 03/18/23 04:00 Pulse 90 03/18/23 09:09 Resp 18 03/18/23 04:00 BP 122/74 03/18/23 04:00 Pulse Ox 95 03/18/23 08:46 FiO2 Intake & Output 03/17/23 03/18/23 03/18/23 18:59 06:59 18:59 Intake Total 720 240 Output Total 200 200 Balance 720 -200 40 Weight 139 kg Intake: Oral 720 240 Output: Urine 200 200 Other: Voiding Method Toilet Toilet # Bowel Movements 1 - Labs CBC & Chem 7: 03/15/23 05:50 03/18/23 07:26 Labs: Abnormal Lab Results - Last 24 Hours (Table) 03/17/23 03/17/23 03/17/23 Range/Units 10:22 11:43 16:25 Sodium 127 L (137-145) mmol/L Potassium 5.4 H (3.5-5.1) mmol/L Chloride 86 L (98-107) mmol/L Carbon Dioxide 38 H (22-30) mmol/L BUN 33 H (9-20) mg/dL Glucose 231 H (74-99) mg/dL POC Glucose (mg/dL) 241 H 306 H (70-110) mg/dL Calcium (8.4-10.2) mg/dL 03/17/23 03/18/23 03/18/23 Range/Units 20:06 05:58 07:26 Sodium 132 L (137-145) mmol/L Potassium (3.5-5.1) mmol/L Chloride 89 L (98-107) mmol/L Carbon Dioxide 42 H* (22-30) mmol/L BUN 30 H (9-20) mg/dL Glucose 129 H (74-99) mg/dL POC Glucose (mg/dL) 192 H 127 H (70-110) mg/dL Calcium 8.1 L (8.4-10.2) mg/dL Microbiology - Last 24 Hours (Table) 03/15/23 21:20 Gram Stain - Final Sputum Sputum Culture - Final 03/14/23 21:54 Blood Culture - Preliminary Blood No Growth after 72 hours
[2023-03-18 11:50] LABS: Glucose,Whole Blood 302 mg/dL (70-110)
[2023-03-18 16:48] LABS: Glucose,Whole Blood 275 mg/dL (70-110)
[2023-03-18 20:04] LABS: Glucose,Whole Blood 219 mg/dL (70-110)
[2023-03-18 20:17] VITALS: RESP 18
[2023-03-18] MEDS: ATORVASTATIN 40 MG TAB PO SCH (20:23)
--- NOTE | 2023-03-18 21:32 | P.PN ---
Progress Note - Text Progress Note Date: 03/18/23 Chief Complaint: Short of breath This is a 62-year-old patient, follows with visiting physicians Dr. Carmen. Patient was transferred here from an outside hospital. Patient been having cough shortness of breath with significant brown sputum. Has weakness in the ER 2. He also has orthopnea. Appetite has been okay. Having chills. Also had some lower extremity edema. Patient is a smoker. Sitting up in a chair. Shortness of breath. Admitted with pneumonia, COPD exacerbation, CHF exacerbation. Started on ceftriaxone, bronchodilators, IV Solu-Medrol March 15: Appetite good. Feeling better. Congested cough. Decrease sputum. Per cardiology Lasix changed over to oral. Lisinopril discontinued. Lokelma added for hyperkalemia. Discussed with patient. March 16: Sitting up in a chair. Eating 100%. Breathing better. Decreased congested cough. DuoNeb. IV Solu-Medrol to be cut back. Potassium still high. Lokelma. Add low potassium diet March 17: Up in a chair. Eating well. Short of breath. Occasional cough. DuoNeb, IV Solu-Medrol. Cultures pending. On fluid restriction 1500 mL. Low potassium diet. March 18: Up in a chair. Oral intake good. Short of breath. Cough. IV steroids. Cultures negative. Short of breath but better Active Medications Acetaminophen (Acetaminophen Tab 325 Mg Tab) 650 mg PO Q4HR PRN PRN Reason: Mild Pain or Fever > 100.5 Last Admin: 03/16/23 18:03 Dose: 650 mg Albuterol/Ipratropium (Ipratropium-Albuterol 3 Ml Neb) 3 ml INHALATION RT-Q2H PRN PRN Reason: Shortness Of Breath Or Wheezing Last Admin: 03/16/23 22:45 Dose: 3 ml Albuterol/Ipratropium (Ipratropium-Albuterol 3 Ml Neb) 3 ml INHALATION RT-QID [facility] Last Admin: 03/18/23 20:29 Dose: 3 ml Allopurinol (Allopurinol 100 Mg Tab) 100 mg PO BID [facility] Last Admin: 03/18/23 20:23 Dose: 100 mg Ascorbic Acid (Ascorbic Acid 500 Mg Tab) 500 mg PO BID [facility] Last Admin: 03/18/23 20:26 Dose: 500 mg Aspirin (Aspirin 81 Mg) 81 mg PO DAILY [facility] Last Admin: 03/18/23 10:03 Dose: 81 mg Atorvastatin Calcium (Atorvastatin 40 Mg Tab) 40 mg PO HS [facility] Last Admin: 03/18/23 20:23 Dose: 40 mg Benzonatate (Benzonatate 100 Mg Cap) 100 mg PO TID PRN PRN Reason: Cough Last Admin: 03/17/23 08:57 Dose: 100 mg Budesonide (Budesonide 1 Mg/2 Ml Nebu) 1 mg INHALATION RT-BID [facility] Last Admin: 03/18/23 20:29 Dose: 1 mg Cholecalciferol (Cholecalciferol 125 Mcg (5000 Iu) Tablet) 125 mcg PO DAILY [facility] Last Admin: 03/18/23 10:03 Dose: 125 mcg Cyanocobalamin (Cyanocobalamin 500 Mcg Tab) 1,000 mcg PO DAILY [facility] Last Admin: 03/18/23 10:03 Dose: 1,000 mcg Dextrose/Water (Dextrose 50% Syringe 50 Ml) 25 ml IVP PER PROTOCOL PRN; Protocol PRN Reason: Hypoglycemia Dextrose/Water (Dextrose 50% Syringe 50 Ml) 50 ml IVP PER PROTOCOL PRN; Protocol PRN Reason: Hypoglycemia Divalproex Sodium (Divalproex Er 500 Mg Tab.Er.24h) 1,000 mg PO BID [facility] Last Admin: 03/18/23 20:23 Dose: 1,000 mg Formoterol Fumarate (Formoterol Fumarate 20 Mcg/2 Ml Nebu) 20 mcg INHALATION RT-BID [facility] Last Admin: 03/18/23 20:29 Dose: 20 mcg Furosemide (Furosemide 40 Mg Tab) 40 mg PO DAILY [facility] Last Admin: 03/18/23 10:03 Dose: 40 mg Guaifenesin (Guaifenesin 600 Mg Tablet.Er) 600 mg PO QID [facility] Last Admin: 03/18/23 17:08 Dose: 600 mg Heparin Sodium (Porcine) (Heparin Sodium,Porcine/Pf 5,000 Unit/0.5 Ml Syringe) 5,000 unit SQ Q12HR [facility] Last Admin: 03/18/23 20:22 Dose: 5,000 unit Hydralazine HCl (Hydralazine Hcl 25 Mg Tab) 25 mg PO TID [facility] Last Admin: 03/18/23 17:08 Dose: 25 mg Insulin Aspart (Insulin Aspart (Novolog) 100 Unit/Ml Vial) 0 unit SQ ACHS [facility]; Protocol Last Admin: 03/18/23 20:22 Dose: 4 unit Levothyroxine Sodium (Levothyroxine 100 Mcg Tab) 200 mcg PO DAILY@0630 [facility] Last Admin: 03/18/23 06:01 Dose: 200 mcg Methylprednisolone Sodium Succinate (Methylprednisolone Sod Succi 125 Mg/2 Ml Vial) 40 mg IV Q8H [facility] Last Admin: 03/18/23 13:13 Dose: 40 mg Naloxone HCl (Naloxone 0.4 Mg/Ml 1 Ml Vial) 0.2 mg IVP Q2M PRN PRN Reason: Opioid Reversal Tamsulosin HCl (Tamsulosin 0.4 Mg Cap.Er.24h) 0.4 mg PO DAILY [facility] Last Admin: 03/18/23 10:03 Dose: 0.4 mg Zinc Sulfate (Zinc Sulfate 220 Mg Cap) 220 mg PO DAILY [facility] Last Admin: 03/18/23 10:03 Dose: 220 mg Past medical history to include: CAD, COPD, diabetes, hyperlipidemia, hypertension, obstructive sleep apnea, hypothyroid, bipolar, schizophrenia, Social history: Lives at the [facility]. Smoker. Physical examination: VITAL SIGNS: 99, 87, 16, 126/68, 93% on 4 L GENERAL: BMI 47, up in chair chair, shortness of breath improving EYES: Pupils equal. Conjunctiva normal. HEENT: External appearance of nose and ears normal, oral cavity grossly normal. NECK: JVD not raised; masses not palpable. HEART: First and second heart sounds are normal; no edema. LUNGS: Respiratory rate increased; decreased breath sound ABDOMEN: Soft, nontender, liver spleen not palpable, no masses palpable. PSYCH: Able to answer simple questions. INVESTIGATIONS, reviewed in the clinical context: March 18: Sodium 132 potassium 4.7 bicarb 42 creatinine 0.74 March 17: Sodium 127 potassium 5.4 creatinine 0.75 March 16: Sodium 127 potassium 5.5 creatinine 0.84. Procalcitonin 03 2-D echocardiogram [March 15] EF 55%. Technically difficult study March 15: White count 11.7 hemoglobin 13.5 platelets 298 sodium 129 potassium 5.6 creatinine 0.92 White count 5.3 hemoglobin 16 platelets 276 sodium 131 potassium 4.9 creatinine 0.75 Troponin I 0.036, 0.019, 0.015. ProBNP 648 CTA chest: No obvious PE. Multiple pulmonary nodules throughout the left lung. Also some in the right upper lobe. Peribronchial cuffing and diffuse interlobular septal thickening bilaterally. EKG tracing personally reviewed by me-normal sinus rhythm. Assessment and plan: -Pneumonia with thick brown sputum. Suspect gram-negative organism: Much improved IV ceftriaxone-discontinued. Blood culture. Sputum for Gram stain and negative. Procalcitonin 0.03 -Troponin leak from hemodynamic mismatch. No ACS -Hyponatremia from diuresis Lasix 40 mg by mouth -Acute hyperkalemia from diuresis and lisinopril: Improved *Lokelma. We will give 1 dose of Kayexalate -Mild to moderate cognitive impairment -Hyperlipidemia Lipitor 40 mg daily at bedtime -Hypouricemia Allopurinol 100 mg twice a day -Bipolar Depakote ER thousand milligrams twice a day Hypothyroid Synthroid 200 g a day -BPH Flomax 0.4 mg a day -CAD with a prior history of coronary bypass -Chronic cigarette smoker Nicotine patch 21 -Acute COPD exacerbation in a current smoker: Slow to respond DuoNeb. IV Solu-Medrol 40 mg every 8. Mucinex. -Obstructive sleep apnea Consult pulmonary -Acute congestive heart failure, from diastolic dysfunction EF 55%: [facility] on the case. IV Lasix changed to oral Lasix Ceftriaxone discontinued. IV Solu-Medrol 40 mg every 8. Bronchodilators. Discussed with patient. Hopefully discharge tomorrow. Changed to oral prednisone tomorrow
[2023-03-19 06:08] LABS: Glucose,Whole Blood 141 mg/dL (70-110)
[2023-03-19] MEDS: INSULIN ASPART (NovoLOG) 100 UNIT/ML VIAL SQ SCH ×2 (06:09→12:57)
[2023-03-19] MEDS: LEVOTHYROXINE 100 MCG TAB PO SCH (08:12)
[2023-03-19] MEDS: guaiFENesin 600 MG TABLET.ER PO SCH ×2 (08:26→12:57)
[2023-03-19] MEDS: ZINC SULFATE 220 MG CAP PO SCH (08:26)
[2023-03-19] MEDS: hydrALAZINE HCL 25 MG TAB PO SCH (08:26)
[2023-03-19] MEDS: ASPIRIN 81 MG PO SCH (08:26)
[2023-03-19] MEDS: CHOLECALCIFEROL 125 MCG (5000 IU) TABLET PO SCH (08:26)
[2023-03-19] MEDS: TAMSULOSIN 0.4 MG CAP.ER.24H PO SCH (08:26)
[2023-03-19] MEDS: ASCORBIC ACID 500 MG TAB PO SCH (08:27)
[2023-03-19] MEDS: HEPARIN SODIUM,PORCINE/PF 5,000 UNIT/0.5 ML SYRINGE SQ SCH (08:27)
[2023-03-19] MEDS: DIVALPROEX ER 500 MG TAB.ER.24H PO SCH (08:27)
[2023-03-19] MEDS: allopurinoL 100 MG TAB PO SCH (08:27)
[2023-03-19] MEDS: FUROSEMIDE 40 MG TAB PO SCH (08:27)
[2023-03-19] MEDS: CYANOCOBALAMIN 500 MCG TAB PO SCH (08:27)
[2023-03-19] MEDS: FORMOTEROL FUMARATE 20 MCG/2 ML NEBU INHALATION SCH (08:48)
[2023-03-19] MEDS: IPRATROPIUM-ALBUTEROL 3 ML NEB INHALATION SCH ×2 (08:48→12:49)
[2023-03-19] MEDS: BUDESONIDE 1 MG/2 ML NEBU INHALATION SCH (08:49)
[2023-03-19] MEDS ORDERED: predniSONE 20 MG TAB PO SCH (09:00)
--- NOTE | 2023-03-19 11:22 | P.PN ---
Subjective Progress Note Date: 03/19/23 62-year-old male who resides in assisted living. He sees a visiting physician. He was brought into the emergency room on March 13, complaining of shortness of breath, and chest pain. He was transferred from an outside hospital. Apparently he been having shortness of breath which is been progressive, for 2 or 3 weeks prior to admission. He denied any fever or chest pain. The patient does have a history of heavy tobacco use, smoking 42 years at 1-2 packs a day. The patient apparently was noted to have an elevated troponin level, and BNP, at the outside hospital. For that reason he was evaluated in the emergency room. We see him today, and room 372. The patient's currently on 2 L of oxygen. He's not receiving any IV fluids. He has a history of CAD, diabetes, COPD, hyperlipidemia, hypertension, pneumonia, sleep apnea syndrome, and hypothyroidism. In addition, he's had bypass surgery in the past. Unfortunately, he does continue to smoke cigarettes. White count 11.7, hemoglobin 13.5, hematocrit 43.1, and platelet count was normal. Sodium 129, potassium 5.6, chloride 87, CO2 39, BUN 40, creatinine 0.92. Albumin is 3.1. The patient had a CT angiogram performed, that was negative for PE. Of note, or multiple pulmonary nodules, noted throughout the left lung, most prominent in the left lower lobe. In addition, some nodules in the right lung as well. This was thought to be consistent with possible metastatic disease. Progress note dated 03/16/2023. The patient is seen today in room 372. Consultation was done yesterday. Please see the note above. The patient's currently on 3 L of oxygen. He is not receiving any IV fluids. He remains on Rocephin. Labs include a sodium 127, potassium 5.5, chlorides 88, CO2 35, anion gap 4, BUN 43, and creatinine 0.84. Glucose 321. Culture data is as far negative. Progress note dated 03/17/2023. 62-year-old male seen in consultation 2 days ago. He came into the emergency department on March 13 complaining of shortness of breath and chest pain. He was transferred from an outside hospital. Currently, the patient appears to be doing better. He is currently on 3 L of oxygen. He's not receiving any IV fluids. He states that he is feeling better. Most recent laboratory data includes a sodium 127, potassium 5.4, chloride 86, CO2 38, BUN 33, creatinine 0.75. Calcium is 8.4. Sputum and blood sampling are thus far negative. Progress note dated 03/18/2023. 62-year-old male seen in consultation 3 days ago. He came to the emergency department complaining of shortness of breath and chest pain. He was transfer red from an outside hospital. Currently, the patient is on 4 L by nasal cannula. He's not receiving any IV fluids. He sitting in a chair next to his bed. He appears not to have any respiratory distress. He does complain of cough. Sodium 132, potassium 4.7, chlorides 89, CO2 42, BUN 30, creatinine 0.74. Calcium is 8.1. On today's evaluation of 03/19/2023, the patient is feeling that her compared to yesterday. He wants to go home. I think it's reasonable as long as he has O2. He has been maintained on Symbicort at home in addition to DuoNeb nebulized treatments [id number]. Here in the hospital, the patient was often bronchodilators and the patient was started on a prednisone burst taper. CAT scan of the chest was noted and the shows bilateral pulmonary nodules that need to be followed up on outpatient basis. Objective - Vital Signs Vital signs: Vital Signs Temp 98.4 F 03/19/23 08:00 Pulse 88 03/19/23 09:10 Resp 18 03/19/23 09:10 BP 114/69 03/19/23 08:00 Pulse Ox 97 03/19/23 08:49 FiO2 Intake & Output 03/18/23 03/19/23 03/19/23 18:59 06:59 18:59 Intake Total 598 250 180 Output Total 200 200 Balance 398 50 180 Weight 136.6 kg Intake: IV 10 Invasive Line 4 10 Oral 598 240 180 Output: Urine 200 200 Other: Voiding Method Toilet Toilet Toilet Diaper # Voids 1 - Exam No acute distress, oriented 3. Currently on 4 L of oxygen. Saturations are 95 %. HEENT examination is grossly unremarkable. Neck supple. Full range of motion. No adenopathy thyromegaly or neck vein distention. Cardiovascular examination reveals regular rhythm rate. S1-S2 normal. No S3 or S4. No discernible murmur noted. Heart sounds are distant. Heart rate 90 beats per minute. Lungs reveal diffuse inspiratory and expiratory wheezes and rhonchi. The patient's quite bronchospastic. No crackles. Breath sounds equal bilaterally. Saturations are 95% on 4 L of oxygen. Abdomen soft bowel sounds are heard. No masses or tenderness. Extremities are intact. No cyanosis clubbing or edema. Skin is without rash or lesion. Neurologic examination is brief but nonfocal. - Labs CBC & Chem 7: 03/15/23 05:50 03/18/23 07:26 Labs: Abnormal Lab Results - Last 24 Hours (Table) 03/18/23 03/18/23 03/18/23 Range/Units 11:40 16:46 19:59 POC Glucose (mg/dL) 302 H 275 H 219 H (70-110) mg/dL 03/19/23 Range/Units 06:07 POC Glucose (mg/dL) 141 H (70-110) mg/dL Microbiology - Last 24 Hours (Table) 03/14/23 21:54 Blood Culture - Preliminary Blood No Growth after 96 hours 03/15/23 21:20 Gram Stain - Final Sputum Sputum Culture - Final Assessment and Plan Plan: Acute hypoxemic respiratory failure, multifactorial, secondary to an acute exacerbation of COPD, and possible CHF. Clinically improving, will evaluate for home O2. Heavy and ongoing history of tobacco use and nicotine addiction. Multiple pulmonary nodules, which may relate to metastatic disease, doubt septic emboli. History of CAD, with previous bypass grafting. History of diabetes mellitus. History of hypertension. History of hyperlipidemia. History of sleep apnea syndrome. History of pneumonia. History of hypothyroidism. History of bipolar disorder/schizophrenia. Plan The patient is to be discharged home today Smoking cessation counseling was done Home O2 evaluation will be done I reviewed the CAT scan of the chest and the patient has multiple pulmonary nodules noted throughout the left lung most prominent in the left lower lobe measuring 15 mm in size. There is also few subcentimeter pulmonary nodules on the right upper lobe measuring 5 mm. There is also suspicious lesions and curvilinear subsegmental changes noted in the inferior aspect of the right middle lobe and the right lower lobe. Suspect around atelectasis. Outpatient subsequent follow-up CAT scan is recommended. Prednisone burst taper addition to Symbicort and DuoNeb neb treatments [id number] Home oxygen evaluation The patient will need outpatient follow-up and an appointment will be made with pulmonary.
[2023-03-19 11:27] VITALS: BP 138/85; PULSE 90; TEMP 98.1
[2023-03-19 11:38] LABS: Glucose,Whole Blood 201 mg/dL (70-110)
--- NOTE | 2023-03-19 21:48 | P.DS ---
Providers Date of admission: 03/14/23 01:48 Expected date of discharge: 03/19/23 Attending physician: Andrew Chandler Consults: 03/14/23 11:26 Consult Physician Routine Consulting Provider: Almas Javed Consult Reason/Comments: COPD exam, omayra Do you want consulting provider notified?: Yes Primary care physician: Trey Carmen [facility] Course: Chief Complaint: Short of breath This is a 62-year-old patient, follows with visiting physicians Dr. Carmen. Patient was transferred here from an outside hospital. Patient been having cough shortness of breath with significant brown sputum. Has weakness in the ER 2. He also has orthopnea. Appetite has been okay. Having chills. Also had some lower extremity edema. Patient is a smoker. Sitting up in a chair. Shortness of breath. Admitted with pneumonia, COPD exacerbation, CHF exacerbation. Started on ceftriaxone, bronchodilators, IV Solu-Medrol March 15: Appetite good. Feeling better. Congested cough. Decrease sputum. Per cardiology Lasix changed over to oral. Lisinopril discontinued. Lokelma added for hyperkalemia. Discussed with patient. March 16: Sitting up in a chair. Eating 100%. Breathing better. Decreased congested cough. DuoNeb. IV Solu-Medrol to be cut back. Potassium still high. Lokelma. Add low potassium diet March 17: Up in a chair. Eating well. Short of breath. Occasional cough. DuoNeb, IV Solu-Medrol. Cultures pending. On fluid restriction 1500 mL. Low potassium diet. March 18: Up in a chair. Oral intake good. Short of breath. Cough. IV ster oids. Cultures negative. Short of breath but better March 19: Breathing better. On ambulating pulse ox dropped to 84%. We'll discharge home with oxygen. Discussed with the nurse and case folder. Discharged with prednisone taper DuoNeb. Questions answered. Symbicort. Discussion and discharge planning more than 35 minutes Past medical history to include: CAD, COPD, diabetes, hyperlipidemia, hypertension, obstructive sleep apnea, hypothyroid, bipolar, schizophrenia, Social history: Lives at the [facility]. Smoker. Physical examination: VITAL SIGNS: At 8.1, 90, 18, 1 38/85, 80% on room air with ambulation. GENERAL: BMI 47, breathing better EYES: Pupils equal. Conjunctiva normal. HEENT: External appearance of nose and ears normal, oral cavity grossly normal. NECK: JVD not raised; masses not palpable. HEART: First and second heart sounds are normal; no edema. LUNGS: Respiratory rate increased; decreased breath sound ABDOMEN: Soft, nontender, liver spleen not palpable, no masses palpable. PSYCH: Able to answer simple questions. INVESTIGATIONS, reviewed in the clinical context: March 19: Procalcitonin 0.04 2-D echocardiogram [March 15] EF 55%. Technically difficult study White count 5.3 hemoglobin 16 platelets 276 sodium 131 potassium 4.9 creatinine 0.75 Troponin I 0.036, 0.019, 0.015. ProBNP 648 CTA chest: No obvious PE. Multiple pulmonary nodules throughout the left lung. Also some in the right upper lobe. Peribronchial cuffing and diffuse interlobular septal thickening bilaterally. EKG tracing personally reviewed by me-normal sinus rhythm. Assessment and plan: -Pneumonia with thick brown sputum. Suspect gram-negative organism: Much improved IV ceftriaxone-discontinued. Blood culture. Sputum for Gram stain and negative. Procalcitonin 0.03 -Acute hypoxic respiratory failure from pneumonia, COPD -Suspect chronic hypoxic respiratory failure from underlying COPD -Troponin leak from hemodynamic mismatch. No ACS -Hyponatremia from diuresis: Better Lasix 40 mg by mouth -Acute hyperkalemia from diuresis and lisinopril: Improved *Lokelma. Kayexalate -Mild to moderate cognitive impairment -Hyperlipidemia Lipitor 40 mg daily at bedtime -Hypouricemia Allopurinol 100 mg twice a day -Bipolar Depakote ER thousand milligrams twice a day Hypothyroid Synthroid 200 g a day -BPH Flomax 0.4 mg a day -CAD with a prior history of coronary bypass -Chronic cigarette smoker Nicotine patch 21 -Acute COPD exacerbation in a current smoker: Better DuoNeb. IV Solu-Medrol 40 mg every 8. Mucinex. Discharge on DuoNeb, Symbicort, prednisone taper -Obstructive sleep apnea Consult pulmonary -Acute congestive heart failure, from diastolic dysfunction EF 55%: Better Cardiology on the case. oral Lasix Disposition: Home Plan - Discharge Summary Discharge Rx Participant: Yes New Discharge Prescriptions: New guaiFENesin [Mucinex] 600 mg PO QID tab predniSONE 10 mg PO DAILY #30 tab Budesonide-Formot 160-4.5 Mcg [Symbicort 160-4.5 Mcg Inhaler] 1 puff INHALATION BID #1 each Acetaminophen Tab [Tylenol] 650 mg PO Q4HR PRN tab PRN Reason: Mild Pain Or Fever > 100.5 hydrALAZINE HCL [Apresoline] 25 mg PO TID #90 tab Ipratropium-Albuterol Nebulize [Duoneb 0.5 mg-3 mg/3 ml Soln] 3 ml INHALATION TID #270 ml Continue Atorvastatin [Lipitor] 40 mg PO HS Aspirin EC [Ecotrin Low Dose] 81 mg PO DAILY Divalproex ER [Depakote ER] 1,000 mg PO BID allopurinoL [Zyloprim] 100 mg PO BID Torsemide [Demadex] 40 mg PO DAILY Levothyroxine Sodium [Synthroid] 200 mcg PO DAILY Zinc Sulfate [Orazinc] 220 mg PO DAILY Cyanocobalamin (Vitamin B-12) [Vitamin B-12] 1,000 mcg PO DAILY Ascorbic Acid [Vitamin C] 500 mg PO BID Cholecalciferol [Vitamin D3 (125 Mcg = 5000 Iu)] 125 mcg PO DAILY Tamsulosin [Flomax] 0.4 mg PO DAILY Discontinued Torsemide [Demadex] 20 mg PO DAILY PRN PRN Reason: LEG SWELLING Chlorpheniramine/Dextromethorp [Coricidin Hbp Cough & Cold Tab] 1 tab PO Q6H PRN PRN Reason: Cold Symptoms lisinopriL [Zestril] 5 mg PO DAILY Discharge Medication List Aspirin EC [Ecotrin Low Dose] 81 mg PO DAILY 07/30/19 [History] Atorvastatin [Lipitor] 40 mg PO HS 07/30/19 [History] Divalproex ER [Depakote ER] 1,000 mg PO BID 01/10/20 [History] Levothyroxine Sodium [Synthroid] 200 mcg PO DAILY 01/10/20 [History] Torsemide [Demadex] 40 mg PO DAILY 01/10/20 [History] allopurinoL [Zyloprim] 100 mg PO BID 01/10/20 [History] Ascorbic Acid [Vitamin C] 500 mg PO BID 03/13/23 [History] Cholecalciferol [Vitamin D3 (125 Mcg = 5000 Iu)] 125 mcg PO DAILY 03/13/23 [History] Cyanocobalamin (Vitamin B-12) [Vitamin B-12] 1,000 mcg PO DAILY 03/13/23 [History] Tamsulosin [Flomax] 0.4 mg PO DAILY 03/13/23 [History] Zinc Sulfate [Orazinc] 220 mg PO DAILY 03/13/23 [History] Acetaminophen Tab [Tylenol] 650 mg PO Q4HR PRN tab 03/19/23 [Rx] Budesonide-Formot 160-4.5 Mcg [Symbicort 160-4.5 Mcg Inhaler] 1 puff INHALATION BID #1 each 03/19/23 [Rx] Ipratropium-Albuterol Nebulize [Duoneb 0.5 mg-3 mg/3 ml Soln] 3 ml INHALATION T ID #270 ml 03/19/23 [Rx] guaiFENesin [Mucinex] 600 mg PO QID tab 03/19/23 [Rx] hydrALAZINE HCL [Apresoline] 25 mg PO TID #90 tab 03/19/23 [Rx] predniSONE 10 mg PO DAILY #30 tab 03/19/23 [Rx] Follow up Appointment(s)/Referral(s): [facility] [NON-STAFF] - (Call for concentrator delivery) Almas Javed DO [Doctor of Osteopathic Medicine] - 03/29/23 1:45 pm (Saturday ) Trey Carmen MD [Primary Care Provider] - 03/21/23 (will come out on ) Patient Instructions/Handouts: Using Oxygen at Home (DC) Discharge Disposition: TRANSFER TO SNF/ECF
== END 2023-03-19 16:03 | DRG 177 ==
LOC: EC 20:52 → 3SCARD 03-14 01:48
PROVIDERS: ADMIT Hospitalist; ATTEND Hospitalist
DX: J15.6 Pneumonia due to other Gram-negative bacteria (principal); I50.31 Acute diastolic (congestive) heart failure; J96.21 Acute and chronic respiratory failure with hypoxia; E87.1 Hypo-osmolality and hyponatremia; Z68.42 Body mass index [BMI] 45.0-49.9, adult; J44.1 Chronic obstructive pulmonary disease with (acute) exacerbation; J44.0 Chronic obstructive pulmonary disease with (acute) lower respiratory infection; I27.20 Pulmonary hypertension, unspecified; I11.0 Hypertensive heart disease with heart failure; F20.9 Schizophrenia, unspecified; F31.9 Bipolar disorder, unspecified; E11.9 Type 2 diabetes mellitus without complications; E03.9 Hypothyroidism, unspecified; E66.01 Morbid (severe) obesity due to excess calories; I07.1 Rheumatic tricuspid insufficiency; E78.5 Hyperlipidemia, unspecified; G47.33 Obstructive sleep apnea (adult) (pediatric); I25.119 Atherosclerotic heart disease of native coronary artery with unspecified angina pectoris; E87.5 Hyperkalemia; F17.210 Nicotine dependence, cigarettes, uncomplicated; T50.1X5A Adverse effect of loop [high-ceiling] diuretics, initial encounter; T46.4X5A Adverse effect of angiotensin-converting-enzyme inhibitors, initial encounter; R41.89 Other symptoms and signs involving cognitive functions and awareness; N40.0 Benign prostatic hyperplasia without lower urinary tract symptoms; R91.8 Other nonspecific abnormal finding of lung field; R01.1 Cardiac murmur, unspecified; R77.8 Other specified abnormalities of plasma proteins; Z20.822 Contact with and (suspected) exposure to COVID-19; Z28.311 Partially vaccinated for COVID-19; Z82.5 Family history of asthma and other chronic lower respiratory diseases; Z95.1 Presence of aortocoronary bypass graft; Z79.899 Other long term (current) drug therapy; Z79.890 Hormone replacement therapy; Z79.82 Long term (current) use of aspirin; Z87.01 Personal history of pneumonia (recurrent)
CPT/HCPCS: 36415; 71275; 80048; 80053; 83036; 83880; 84145; 84484; 85025; 85379; 85610; 85730; 87040; 87070; 87205; 93306; 94640; 94760; 96365; 96366; 96375; 96376; 99291